=== PATIENT | male | born 1960 | race Caucasian/White ===

== ENCOUNTER 2022-02-16 16:33 | Outpatient (CLI) | payer BC, SELFPAY ==
--- OUTSIDE RECORDS SUMMARY | 2022-02-16 09:48 | XMS_ITS | Encounter Summary ---
:1960 Author Organization [facility] Address [address] [place] [id number] Care Team Providers Name Role Phone No Ref-Primary, Physician Primary Care Provider Encounter Details Date Type Department Care Team Description 06/19/2019 Travel Social History Tobacco Use Types Packs/Day Years Used Date Never Smoker Smokeless Tobacco: Never Used Alcohol Use Standard Drinks/Week Comments No 0 (1 standard drink = 0.6 oz pure alcoho l) Sex Assigned at Date Recorded Not on file documented as of this encounter Plan of Treatment Not on filedocumented as of this encounter Visit Diagnoses Not on filedocumented in this encounter Care Teams Ibm Bpm Architect Relationship Specialty Start Date End Date No Ref-Primary, Physician PCP - General 08/28/17 documented as of this encounter
--- OUTSIDE RECORDS SUMMARY | 2022-02-16 09:48 | XMS_ITS | Clinical Summary ---
:1960 Author Organization [facility] Address [address] [place] [address] Care Team Providers Name Role Phone No Ref-Primary, Physician Primary Care Provider Allergies No known active allergies Medications Medication Sig Dispensed Refills Start Date End Date Status Multiple Take 2 tablets by 0 Ac tive Vitamins-Minerals mouth 2 times (PRESERVISION AREDS 2 daily PO) atorvastatin (LIPITOR) Take 10 mg by 0 Active 10 MG tablet mouth daily fluticasone (FLONASE) [place] 1 spray into 0 Active 50 MCG/ACT nasal spray both nostrils daily LANsoprazole Take 30 mg by 0 Act yoseph (PREVACID) [address] mouth daily capsule triamcinolone Apply topically 2 0 Active (KENALOG) 0.1 % times daily external cream Active Problems Problem Noted Date Non-intractable vomiting with nausea, unspecified vomi ting type 12/02/2017 SBO (small bowel obstruction) 11/30/2017 Depression 08/29/2017 Knee pain 09/15/2012 Chondromalacia 09/15/2012 Social History Tobacco Use Types Packs/Day Years Used Date Never Smoker Smokeless Tobacco: Never Used Tobacco Cessation: Counseling Given: Yes Alcohol Use Standard Drinks/Week Comments No 0 (1 standard drink = 0.6 oz pure alcoho l) Sex Assigned at Date Recorded Not on file Last Filed Vital Signs Vital Sign Reading Time Taken Comments Blood Pressure 130/88 06/19/2019 11:34 AM COMMERCIAL COLLECTOR Pulse 41 06/19/2019 11:34 AM COMMERCIAL COLLECTOR Temperature 36.2 ??C (97.2 ??F) 06/02/2019 3:09 PM COMMERCIAL COLLECTOR Respiratory Rate 18 06/19/2019 11:34 AM COMMERCIAL COLLECTOR Oxygen Saturation 93% 06/19/2019 11:34 AM COMMERCIAL COLLECTOR Inhaled Oxygen Concentration - - Weight 107 kg (236 lb) 06/19/2019 11:34 AM COMMERCIAL COLLECTOR Height 182.9 cm (6') 06/19/2019 11:34 AM COMMERCIAL COLLECTOR Body Mass Index 32.01 06/19/2019 11:34 AM COMMERCIAL COLLECTOR Plan of Treatment Health Maintenance Due Date Last Done Comments ADVANCE CARE PLANNING 1960 ANNUAL REVIEW OF HM ORDERS 1960 CT COLONOGRAPHY 1960 FIT-DNA (Cologuard) 1960 FIT 1960 FLEX SIG 1960 PREVENTIVE CARE VISIT 1960 COVID-19 Vaccine (#1) 05/08/1961 HIV SCREENING 11/07/1975 HEPATITIS C SCREENING 1978 LIPID 11/07/1995 ZOSTER IMMUNIZATION (1 of 2010 2) COLONOSCOPY 07/11/2017 07/11/2007 COLORECTAL CANCER SCREENING 07/11/2017 PHQ-2 (once per calendar 05/30/2021 year) INFLUENZA VACCINE (#1) 2022 06/24/2017, 04/14/2015, 03/16/2002, Additional history exists DTAP/TDAP/TD IMMUNIZATION 07/19/2024 07/19/2014, 06/29/2004 , (2 - Td or Tdap) 04/09/1997 HEPATITIS B IMMUNIZATION Aged Out No long er eligible based on patient 's age to complete this topic IPV IMMUNIZATION Aged Out No longer eligi ble based on patient 's age to complete this topic MENINGITIS IMMUNIZATION Aged Out No longe r eligible based on patient 's age to complete this topic Pneumococcal Vaccine: Aged Out No longer eligible Pediatrics (0 to 5 Years) based on patient's age and At-Risk Patients (6 to to co mplete this topic 64 Years) Insurance Payer Benefit Plan / Subscriber ID Effective Dates Phone Addre ss Type Group [facility] [id number] 2013-Present [phone] [address] [address] PPO EMPLOYEE PROGRAM [place] [employer] [id number] [facility] 1960 [id number] (Home) [place] [address] Advance Directives For more information, please contact: [phone] Latest Code Status on File Code Status Date Activated Date Inactivated Comments Full Code 06/02/2019 2:05 AM 06/02/2019 7:45 PM Code status determined by: Discussion with patient/legal dec ision maker Full Code 12/02/2017 12:24 PM 06/01/2019 8:27 PM Full Code 11/30/2017 9:08 AM 12/02/2017 12:24 PM Full Code 08/29/2017 1:31 AM 08/30/2017 4:20 PM Care Teams Dry Kiln Burner Relationship Specialty Start Date End Date No Ref-Primary, Physician PCP - General 08/28/17
--- OUTSIDE RECORDS SUMMARY | 2022-02-16 09:48 | XMS_ITS | Encounter Summary ---
:1960 Author Organization [facility] Address [address] [place] [address] Care Team Providers Name Role Phone No Ref-Primary, Physician Primary Care Provider [phone] Encounter Details Date Type Department Care Team Description 06/02/2019 Travel Social History Tobacco Use Types Packs/Day [...] on filedocumented in this encounter Care Teams Rounding And Backing Machine Operator Relationship Specialty Start Date End Date No Ref-Primary, Physician PCP - General 08/28/17 documented as of this encounter
--- OUTSIDE RECORDS SUMMARY | 2022-02-16 09:48 | XMS_ITS | Encounter Summary ---
:1960 Author Organization [facility] Address [address] [place] [address] Care Team Providers Name Role Phone No Ref-Primary, Physician Primary Care Provider Encounter Details Date Type Department Care Team Description 06/01/2019 Travel Social History Tobacco Use Types Packs/Day [...] on filedocumented in this encounter Care Teams Cook Helper Preserves Relationship Specialty Start Date End Date No Ref-Primary, Physician PCP - General 08/28/17 documented as of this encounter
--- OUTSIDE RECORDS SUMMARY | 2022-02-16 09:48 | XMS_ITS | Encounter Summary ---
:1960 Author Organization [facility] Address [address] [place] [address]. [place] [address] Care Team Providers Name Role Phone No Ref-Primary, Physician Primary Care Provider Reason for Referral Diagnostic Imaging CT Scan - Closed Specialty Diagnoses / Procedures Referred By Contact Refer red To Contact Diagnoses Small bowel obstruction (H) Kristi Warner MD Procedures CT Enterography [facility] [address] [place] [address] Referral ID Status Reason Start Date Expiration Date Visits Requ ested Visits Authorized [id number] Closed 12/02/2017 12/02/2018 1 1 Reason for Visit Diagnostic Imaging CT Scan - Closed Specialty Diagnoses / Procedures Referred By Contact Refer red To Contact Diagnoses Small bowel obstruction (H) Kristi Warner MD Procedures CT Enterography [facility] [address] [place] [address] Referral ID Status Reason Start Date Expiration Date Visits Requ ested Visits Authorized [id number] Closed 12/02/2017 12/02/2018 1 1 Encounter Details Date Type Department Care Team Description 01/10/2018 Hospital Encounter [facility] Kristi Warner Small bowel [facility] MD [place] obstruction [id number] [facility] [address] [place] [address] Social History Tobacco Use Types Packs/Day Years Used Date Never Smoker Smokeless Tobacco: Never Used Alcohol Use Standard Drinks/Week Comments No 0 (1 standard drink = 0.6 oz pure alcoho l) Sex Assigned at Date Recorded Not on file documented as of this encounter Medications at Time of Discharge Medication Sig Dispensed Refills Start Date End Date BUPROPION HCL ER, XL, PO Take 150 mg by mouth 0 06/02/2019 daily IBUPROFEN PO Take by mouth as 0 2019 needed for moderate pain multivitamin (OCUVITE) Take 1 tablet by 0 06/02/2019 TABS tablet mouth 2 times daily documented as of this encounter Progress Notes Kristi Warner MD - 01/10/2018 11:59 PM CDT Please inform the patient of this normal result. No abnormalities are noted and no follow up needed. Pushpa Wynn RN - 01/10/2018 11:59 PM CDT Patient advised of results. Pushpa Boggs RN documented in this encounter Plan of Treatment Not on filedocumented as of this encounter Procedures Procedure Name Priority Date/Time Associated Diagnosis Comme nts CT ENTEROGRAPHY WITH Routine 01/10/2018 9:14 AM Small bowel R esults for this CONTRAST CDT obstruction procedure are i n the results section. documented in this encounter Results CT Enterography (01/10/2018 9:14 AM CDT) Anatomical Region Laterality Modality Abdomen/Pelvis, SUBRAD CT BODY, UMP CT ABDOMEN PELVIS, Computed Tomography RAD CT Specimen (Source) Anatomical Location Collection Method / Collectio n Time Received Time / Laterality Volume Impressions 01/10/2018 11:22 AM CDT IMPRESSION: 1. Small amount of fluid in the small devyn wel and right colon which in the correct clinical setting could refle ct gastroenteritis. No evidence of bowel obstruction. Possible mild constipation. No diverticulitis. Appendix is normal. 2. Probable fatty liver infiltration wit h 2 low-attenuation left hepatic lobe lesions potentially tiny cy sts or hemangiomas each measuring less than 1 cm. 3. Simple cyst right kidney. No further follow-up required. No hydronephrosis or enhancing renal lesion jose CATES MD Narrative 01/10/2018 11:[address] ENTEROGRAPHY WITH CONTRAST 01/10/2018 9:14 AM HISTORY: Small bowel obstruction. TECHNIQUE: Axial images from the lung ba ses to the symphysis are performed with additional coronal reform atted images. 100 mL of Isovue 370 are given intravenously. Radiation d ose for this scan was reduced using automated exposure control, adjust ment of the mA and/or kV according to patient size, or iterative reconstruction technique. FINDINGS: The lung bases are clear. Abdomen: There is probable fatty liver i nfiltration with a tiny cyst or hemangioma anterior left hepatic lobe measuring less than 1 cm. Possible similar lesion in the medial se gment left hepatic lobe also on image 22. The spleen, gallbladder, pa ncreas, adrenal glands and kidneys are unremarkable. Small cyst ant erolateral right kidney on image 47 measures less than 1 cm most li ervin a simple cyst. No hydronephrosis or obvious renal calculi. No enlarged abdominal lymph nodes. Aorta demonstrates scattered calc ified plaque without evidence of aneurysm. The bowel is normal in caliber without o bstruction. No evidence of diverticulitis. Appendix is normal. Mode rate amount of fecal debris is noted in the left colon and sigmoid colo n possibly indicating constipation. No significant gastric or small bowel distention. Pelvis: The bladder, prostate and rectum are unremarkable. No enlarged pelvic or inguinal lymph nodes. Bone win luis felipe examination is within normal limits. Procedure Note Erick Cates MD - 01/10/2018Form atting of this note might be different from the original. CT ENTEROGRAPHY WITH CONTRAST 01/10/2018 9:14 AM HISTORY: Small bowel obstruction. TECHNIQUE: Axial images from the lung ba ses to the symphysis are performed with additional coronal reform atted images. 100 mL of Isovue 370 are given intravenously. Radiation d ose for this scan was reduced using automated exposure control, adjust ment of the mA and/or kV according to patient size, or iterative reconstruction technique. FINDINGS: The lung bases are clear. Abdomen: There is probable fatty liver i nfiltration with a tiny cyst or hemangioma anterior left hepatic lobe measuring less than 1 cm. Possible similar lesion in the medial se gment left hepatic lobe also on image 22. The spleen, gallbladder, pa ncreas, adrenal glands and kidneys are unremarkable. Small cyst ant erolateral right kidney on image 47 measures less than 1 cm most li ervin a simple cyst. No hydronephrosis or obvious renal calculi. No enlarged abdominal lymph nodes. Aorta demonstrates scattered calc ified plaque without evidence of aneurysm. The bowel is normal in caliber without o bstruction. No evidence of diverticulitis. Appendix is normal. Mode rate amount of fecal debris is noted in the left colon and sigmoid colo n possibly indicating constipation. No significant gastric or small bowel distention. Pelvis: The bladder, prostate and rectum are unremarkable. No enlarged pelvic or inguinal lymph nodes. Bone win luis felipe examination is within normal limits. IMPRESSION: 1. Small amount of fluid in the small devyn wel and right colon which in the correct clinical setting could refle ct gastroenteritis. No evidence of bowel obstruction. Possible mild constipation. No diverticulitis. Appendix is normal. 2. Probable fatty liver infiltration wit h 2 low-attenuation left hepatic lobe lesions potentially tiny cy sts or hemangiomas each measuring less than 1 cm. 3. Simple cyst right kidney. No further follow-up required. No hydronephrosis or enhancing renal lesion jose CATES MD Kristi Warner MD IMG CT ORDERABLES documented in this encounter Visit Diagnoses Diagnosis Small bowel obstruction (H) Unspecified intestinal obstruction documented in this encounter Administered Medications Inactive Administered Medications - up to 3 most recent administrations Medication Order MAR Action Action Date Dose Rate Site 0.9% sodium chloride BOLUS New Bag 01/10/2018 8:56 AM CDT 55 mLs Intravenous, 100 mL, ONCE, On Tue01/10/18 at 0900, For 1 dose iopamidol (ISOVUE-370) solution 500 mL Given 01/10/2018 8:56 AM CDT 100 mLs 500 mL, Intravenous, ONCE, On Tue01/10/18 at 0900, For 1 dose documented in this encounter Care Teams Agricultural Produce Sorter Relationship Specialty Start Date End Date No Ref-Primary, Physician PCP - General 08/28/17 documented as of this encounter
--- OUTSIDE RECORDS SUMMARY | 2022-02-16 09:48 | XMS_ITS | Encounter Summary ---
:1960 Author Organization [facility] Address [address] [place] [address]. [place] [address] Care Team Providers Name Role Phone No Ref-Primary, Physician Primary Care Provider [phone] Reason for Referral Diagnostic Imaging CT Scan - Closed Specialty Diagnoses / Procedures Referred By Contact Refer red To Contact Diagnoses Small bowel obstruction (H) Kristi Warner MD Procedures [facility] [address] [facility] [address] [place] [address] Referral ID Status Reason Start Date Expiration Date Visits Requ ested Visits Authorized [id number] Closed 12/02/2017 12/02/2018 1 1 Encounter Details Date Type Department Care Team Description 12/02/2017 Orders Only [facility] Kristi Warner Small bowel [facility] MD [place] obstruction ( Primary [facility] Dx) [address] [facility] [address] [place] [address] Social History Tobacco Use Types Packs/Day Years Used Date Never Smoker Smokeless Tobacco: Never Used Alcohol Use Standard Drinks/Week Comments No 0 (1 standard drink = 0.6 oz pure alcoho l) Sex Assigned at Date Recorded Not on file documented as of this encounter Plan of Treatment Not on filedocumented as of this encounter Results CT Enterography (01/10/2018 9:14 [...] required. No hydronephrosis or enhancing renal lesion sHank CATES MD Narrative 01/10/2018 11:22 AM CDT [...] Visit Diagnoses Diagnosis Small bowel obstruction (H) - Primary Unspecified intestinal obstruction Small bowel obstruction (H) Unspecified intestinal obstruction documented in this encounter Care Teams Straight Edger Relationship Specialty Start Date End Date No Ref-Primary, Physician PCP - General 08/28/17 documented as of this encounter
--- OUTSIDE RECORDS SUMMARY | 2022-02-16 09:48 | XMS_ITS | Encounter Summary ---
:1960 Author Organization [facility] Address [address] [place] [id number] Care Team Providers Name Role Phone No Ref-Primary, Physician Primary Care Provider [phone] Reason for Visit Reason Comments Abdominal Pain Auth/Cert Specialty Diagnoses / Procedures Referred By Contact Refer red To Contact Diagnoses Small bowel obstruction (H) SBO (small bowel obstruction) (H) [facility] [address] [place], [place] [address] Phone: Fax: Referral ID Status Reason Start Date Expiration Date Visits Requ ested Visits Authorized [id number] 1 1 Encounter Details Date Type Department Care Team Description 06/01/2019 - [facility] jhon Tejeda DO [facility] [address] [place] [id number] Small bowel 06/02/2019 Encounter [facility] Kwadwo Abla MD [address] [place], [place] [id number] obstruction (H) Surgical [address] [place] [address] Social History Tobacco Use Types Packs/Day Years Used Date Never Smoker Smokeless Tobacco: Never Used Alcohol Use Standard Drinks/Week Comments No 0 (1 standard drink = 0.6 oz pure alcoho l) Sex Assigned at Date Recorded Not on file documented as of this encounter Last Filed Vital Signs Vital Sign Reading Time Taken Comments Blood Pressure 112/62 06/02/2019 3:09 PM [employer] Pulse 44 06/02/2019 7:38 AM EN[employer]MENTAL [employer] Temperature 36.2 ??C (97.2 ??F) 06/02/2019 3:09 PM EN[employer]ONMENTAL [employer]ER Respiratory Rate 20 06/02/2019 3:09 PM EN[employer]IRONMENTAL WE[employer]ER Oxygen Saturation 97% 06/02/2019 3:09 PM ENVIRONMENTAL WE[employer]WLER Inhaled Oxygen Concentration - - Weight 107.2 kg (236 lb 4.8 oz) 06/02/2019 1:21 AM ENVIRONMENTAL WE[employer] C[employer]WLER Height 182.9 cm (6') 06/02/2019 1:21 AM ENVIRONMENTAL WEB C[employer]WLER Body Mass Index 32.05 06/02/2019 1:21 AM ENVIRONMENTAL WEB CRAWLER documented in this encounter Discharge Summaries James Valadez MD - 06/02/2019 5:30 PM CST [facility] Discharge Summary Hospitalist Date of Admission: 06/01/2019 Date of Discharge: 06/02/2019 5:30 PM Discharging Provider: James Valadez MD Date of Service (when I saw the patient): 06/02/19 Discharge Diagnoses Small bowel obstruction. Treated conservatively and resolved. Possibly related to mobile cecum. Follow-up in general surgery clinic. Dyslipidemia GERD History of Present Illness Sunday Myers is an 58 year old male who presented with progressively worsening abdominal pain and nausea. CT scan suggested distal small bowel obstruction. Hospital Course Patient was admitted to internal medicine service and general surgery team was consulted. Overall patient appeared stable in the emergency room. Initial exam showed nonsurgical abdomen. Patient was admitted and treated conservatively. NG tube placement was deferred. Patient has quickly improved. His nausea improved. He started having bowel motions. Abdominal pain rapidly resolved. Patient was seen by Dr. Hansen from general surgery. She reviewed the CT images. Per her recommendations, patient may have a mobile cecum. On CT scan, cecum and appendix appear to be in the right upper quadrant. This anatomical abnormality may be responsible for his small bowel obstruction. Patient had a small bowel obstruction in 2018. No history of surgery. According to the patient, he had a colonoscopy about a year ago in [place]. He was told that it was unremarkable and possibly polyps were removed. He was recommended to follow-up with Dr. Hansen in general surgery clinic. Patient's diet was advanced which he tolerated well. Patient is discharged home with follow-up plan with general surgery. I personally evaluated and examined the patient on the day of discharge. James Valadez MD Pending Results These results will be followed up by PCP Unresulted Labs Ordered in the Past 30 Days of this Admission No orders found from 05/02/2019 to 06/02/2019. Primary Care Physician Physician No Ref-Primary Discharge Disposition Discharged to home Condition at discharge: Stable Consultations This Hospital Stay SURGERY GENERAL IP CONSULT Time Spent on this Encounter Discharge time: greater than 30 minutes. Discharge Orders Reason for your hospital stay Bowel obstruction Follow-up and recommended labs and tests Follow up with primary care provider, Physician No Ref-Primary, within 7 days for hospital follow- up. Follow up with Dr Hansen in surgery office. Activity Your activity upon discharge: activity as tolerated Diet Follow this diet upon discharge: low fiber diet Discharge Medications Discharge Medication List as of 06/02/2019 4:42 PM CONTINUE these medications which have NOT CHANGED Details atorvastatin (LIPITOR) 10 MG tablet Take 10 mg by mouth daily, Historical fluticasone (FLONASE) 50 MCG/ACT nasal spray [place] 1 spray into both nostrils daily, Historical LANsoprazole (PREVACID) [address] capsule Take 30 mg by mouth daily, Historical Multiple Vitamins-Minerals (PRESERVISION AREDS 2 PO) Take 2 tablets by mouth 2 times daily, Historical triamcinolone (KENALOG) 0.1 % external cream Apply topically 2 times dailyHistorical Allergies No Known Allergies Data Most Recent 3 CBC's: Recent Labs Lab Test 06/02/19 0833 06/01/19204112/01/17 0642 WBC 7.6 11.4* 8.6 HGB 14.3 15.0 14.2 MCV 89 89 90 PLT 203 245 195 Most Recent 3 BMP's: Recent Labs Lab Test 06/02/19 0833 06/01/19204112/02/17 0844 NA 141 141 140 POTASSIUM 3.9 3.8 4.0 CHLORIDE 109 108 105 CO2 28 26 27 BUN 19 22 12 CR 0.93 1.00 0.97 ANIONGAP 4 7 8 NYDIA 8.5 9.3 8.9 GLC 125* 117* 161* Most Recent 2 LFT's: Recent Labs Lab Test 06/01/19204111/30/17 0535 AST 19 24 ALT 22 40 ALKPHOS 74 109 BILITOTAL 0.5 1.1 Most Recent INR's and Anticoagulation Dosing History: Anticoagulation Dose History Recent Dosing and Labs Latest Ref Rng & Units 11/30/2017 INR 0.86 - 1.14 0.91 Most Recent 3 Troponin's: Recent Labs Lab Test 11/30/17 0535 08/28/17 1732 TROPI <0.015 <0.015 Most Recent Cholesterol Panel:No lab results found. Most Recent 6 Bacteria Isolates From Any Culture (See EPIC Reports for Culture Details):No lab results found. Most Recent TSH, T4 and A1c Labs: Recent Labs Lab Test 12/02/17 0844 08/28/17 1732 TSH -- 1.44 A1C 5.8* -- RONMENTAL WEB CRAWLER documented in this encounter Discharge Instructions AttachmentsThe following attachments cannot be sent through Care Everywhere. Bowel Obstruction, Small (Mexican)documented in this encounter Medications at Time of Discharge Medication Sig Dispensed Refills Start Date End Date atorvastatin (LIPITOR) 10 Take 10 mg by mouth 0 MG tablet daily fluticasone (FLONASE) 50 [place] 1 spray into 0 MCG/ACT nasal spray both nostrils daily LANsoprazole (PREVACID) 30 Take 30 mg by mouth [address] capsule daily Multiple Vitamins-Minerals Take 2 tablets by 0 (PRESERVISION AREDS 2 PO) mouth 2 times daily triamcinolone (KENALOG) Apply topically 2 0 0.1 % external cream times daily documented as of this encounter H&P Notes Kwadwo Alba MD - 06/01/2019 11:04 PM CST Images from the original note were not included. [facility] Hospitalist Admission Note June 01, 2019 Name: Sunday Myers Date of : 1960 Age: [age] year old Date of admission: 06/01/2019 Primary care provider: No Ref-Primary, Physician Summary: Patient is a pleasant 58-year-old male with a history of small bowel obstruction back in 2018 who presents here with progressive abdominal pain and nausea. Other past medical history includes generalized anxiety/depression. Patient presented here with worsening abdominal pain and distention that started today. Symptoms are similar back to his previous small bowel obstruction in 2018 when he was hospitalized here. He has no previous abdominal surgeries. General surgery was consulted during that admission and deferred on surgical intervention as patient was clinically improving with conservative management. At that time he did have an NG tube decompression with bowel rest. Since presentation, patient reports that his abdomen is less distended. No longer nauseated. CT of the abdomen pelvis did confirm a distal small bowel obstruction. During my interview, patient reports that pain is controlled andhe denies any active nausea. Thus, an NG tube was deferred at this time. I was asked to admit him for further inpatient cares and surgical consultation. Problem list/Plan: 1. Small bowel obstruction: Appears nontoxic and abdomen is nonsurgical at this time. No notable recent flatus. Will offer conservative cares with bowel rest, maintenance IV fluids, pain control, and antiemetics. Will consult surgery formally. Patient does not have a previous history of abdominal surgeries. Other differential diagnosis includes IBD versus internal hernia. Consider NG tube to decompression if nausea and pain becomes an issue. 2. History of depression/anxiety: Holding patient's chronic Wellbutrin while surgery consultation n.p.o. -Additional workup plan which will include surgery consultation lab work and imaging data independently reviewed by myself Prophylaxis; PCD/Ambulation. Code status: Full code Discharge: Home when able Chief Complaint: Abdominal pain/nausea HPI Patient is a pleasant 58-year-old male with a history of small bowel obstruction back in 2018 who presents here with progressive abdominal pain and nausea. Other past medical history includes generalized anxiety/depression. Patient presented here with worsening abdominal pain and distention that started today. Symptoms are similar back to his previous small bowel obstruction in 2018 when he was hospitalized here. He has no previous abdominal surgeries. General surgery was consulted during that admission and deferred on surgical intervention as patient was clinically improving with conservative management. At that time he did have an NG tube decompression with bowel rest. Since presentation, patient reports that his abdomen is less distended. No longer nauseated. CT of the abdomen pelvis did confirm a distal small bowel obstruction. During my interview, patient reports that pain is controlled andhe denies any active nausea. Thus, an NG tube was deferred at this time. I was asked to admit him for further inpatient cares and surgical consultation. I did discuss the case in detail with the ED physician. Past Medical History: Patient is a pleasant 58-year-old male with a history of small bowel obstruction back in 2018 who presents here with progressive abdominal pain and nausea. Other past medical history includes generalized anxiety/depression. Patient presented here with worsening abdominal pain and distention that started today. Symptoms are similar back to his previous small bowel obstruction in 2018 when he was hospitalized here. He has no previous abdominal surgeries. General surgery was consulted during that admission and deferred on surgical intervention as patient was clinically improving with conservative management. At that time he did have an NG tube decompression with bowel rest. Since presentation, patient reports that his abdomen is less distended. No longer nauseated. CT of the abdomen pelvis did confirm a distal small bowel obstruction. During my interview, patient reports that pain is controlled andhe denies any active nausea. Thus, an NG tube was deferred at this time. I was asked to admit him for further inpatient cares and surgical consultation. Past Surgical History: Past Surgical History: Procedure Laterality Date ??? KNEE SURGERY ??? TONSILLECTOMY, ADENOIDECTOMY, COMBINED Social History: Social History Tobacco Use ??? Smoking status: Never Smoker ??? Smokeless tobacco: Never Used Substance Use Topics ??? Alcohol use: No ??? Drug use: No Family History: Family history reviewed. NO pertinent family history Allergies: No Known Allergies Medications: Wellbutrin XL 150 mg p.o. daily Multivitamin Review of Systems: A Comprehensive greater than 10 system review of systems was carried out. Pertinent positives and negatives are noted above. Otherwise negative for contributory information. Physical Exam: Blood pressure 138/87, temperature 97 ??F (36.1 ??C), temperature source Temporal, resp. rate 18, weight 106 kg (233 lb 11 oz), SpO2 99 %. Gen: Pleasant in no acute distress. HEENT: NCAT. EOMI. PERRL. Neck: Normal inspection. No bruit, JVD or thyromegaly. Lungs: Normal respiratory effort. Clear to auscultation bilaterally with no crackles or wheezes. Card: N s1s2. RRR. No M/R/G. Peripheral pulses present and symmetric. Abd: Soft NT ND. Hypoactive bowel sounds. Skin: No rash. Warm to the touch Extr: No edema. CMS intact Psychiatric: Patient alert oriented ??3. Normal affect Neurologic: Cranial nerves II-XII are intact. Sensation normal. Motor strength 5/5 Data: Recent Labs Lab 06/01/192041 WBC 11.4* HGB 15.0 HCT 46.9 MCV 89 PLT 245 Recent Labs Lab 06/01/192041 NA 141 POTASSIUM 3.8 CHLORIDE 108 CO2 26 ANIONGAP 7 GLC 117* BUN 22 CR 1.00 GFRESTIMATED 82 GFRESTBLACK >90 NYDIA 9.3 PROTTOTAL 7.5 ALBUMIN 4.4 BILITOTAL 0.5 ALKPHOS 74 AST 19 ALT 22 No results for input(s): COLOR, APPEARANCE, URINEGLC, URINEBILI, URINEKETONE, SG, UBLD, URINEPH, PROTEIN, UROBILINOGEN, NITRITE, LEUKEST, RBCU, WBCU in the last 168 hours. Imaging: Recent Results (from the past 24 hour(s)) Abd/pelvis CT, IV contrast only TRAUMA / AAA Narrative EXAM: CT ABDOMEN PELVIS W CONTRAST LOCATION: [facility] DATE/TIME: 06/01/2019 9:48 PM INDICATION: Abdominal pain. COMPARISON: 01/10/2018. TECHNIQUE: CT scan of the abdomen and pelvis was performed following injection of IV contrast. Multiplanar reformats were obtained. Dose reduction techniques were used. CONTRAST: 100 mL Isovue-370. FINDINGS: LOWER CHEST: Mild dependent atelectasis at the lung bases. HEPATOBILIARY: The gallbladder is contracted. No calcified gallstones. A few small liver lesions arelikely cysts. PANCREAS: Normal. SPLEEN: Normal. ADRENAL GLANDS: Normal. KIDNEYS/BLADDER: Small cortical cyst at the lower pole of the right kidney. No hydronephrosis. BOWEL: There are multiple dilated mid small bowel loops. Mild edema in the adjacent mesentery. Specific point of transition is not identified but appears to be in the right lower quadrant. The colon iswithin normal limits. Appendix is within normal limits. LYMPH NODES: Normal. VASCULATURE: Unremarkable. PELVIC ORGANS: Prostate gland is enlarged. OTHER: None. MUSCULOSKELETAL: Degenerative disease in the spine. Impression IMPRESSION: 1. Distal small bowel obstruction. Kwadwo Alba MD Pager [phone] RONMENTAL WEB CRAWLER documented in this encounter Consult Notes Tiffany Hansen MD - 06/02/2019 10:12 AM CSTAssociated Order(s): SURGERY GENERAL IP CONSULT General Surgery Consultation Sunday Myers Age: [age] year old Date of : 1960 Date of Admission: 06/01/2019 Reason for consult: Small bowel obstruction Requesting physician: Dr Burkett Her Assessment and Plan: Assessment: Sunday Myers is a 58 year old male without prior surgical history, with previous SBO in 2018 with a recurrent small bowel obstruction. Based on the appearance of the CT, I believe mobile cecum is most likely - cecum and appendix appearto be in right upper quadrant. There is no small bowel wall thickening to indicate inflammatory process like Crohn's. Prior CT enterography in 2018 was normal. Adhesions are possible. No evidence of mass/tumor. Luckily his symptoms have improved today and he is pain-free Plan: OK to start full liquids and advance as tolerated If tolerates diet, okay for discharge later today. I discussed with patient confirming when his last colonoscopy was done. He can come see me in the office to discuss possible elective surgery to evaluate the cecum or for other problems causing recurrent bowel obstruction. Chief Complaint: Abdominal pain History is obtained from the patient History of Present Illness: Sunday Myers is a 58 year old male who presents with abdominal pain diffusely for thepast 1 day. The pain is intermittent and cramping. Started around 5 PM last night. States it comes in waves. Abdomen was bloated. He did not have any vomiting. Presented to the emergency department andwas admitted. By the Time he was admitted his symptoms had improved. States small amount of flatus but no bowel movements. At baseline BMs are daily and soft. He has had a colonoscopy, last one in our system was in 2007 however he believes he had one more recently at an outside facility.. He does havea history of bowel obstructions in the past. He presented with similar but more severe symptoms in November 2017. He said at that time he was having severe pain as well as nausea and vomiting. He did receive an NG tube for decompression and his symptoms improved and he was able to go home after 2 nights in the hospital. He underwent work-up with CT enterography in December 2017 which really did not see anybowel abnormality. In between that episode and this episode he reports he really has not had that similar cramping pain but occasionally reports he has some abdominal bloating that he cannot correlate to any specific food. He did change his diet about 3 weeks ago to a high-protein and vegetable diet with no carbs. His previous episode he states he had changed his diet at that time as well to eating alot of dried fruit and nuts. Past Medical History: Depression Past Surgical History: Past Surgical History: Procedure Laterality Date ??? KNEE SURGERY ??? TONSILLECTOMY, ADENOIDECTOMY, COMBINED No abdominal surgery Social History: Social History Tobacco Use ??? Smoking status: Never Smoker ??? Smokeless tobacco: Never Used Substance Use Topics ??? Alcohol use: No Family History: No family history on file. No family history of inflammatory bowel disease or colon cancer. Allergies: No Known Allergies Medications: No current facility-administered medications on file prior to encounter. atorvastatin (LIPITOR) 10 MG tablet, Take 10 mg by mouth daily fluticasone (FLONASE) 50 MCG/ACT nasal spray, [place] 1 spray into both nostrils daily LANsoprazole (PREVACID) [address] capsule, Take 30 mg by mouth daily Multiple Vitamins-Minerals (PRESERVISION AREDS 2 PO), Take 2 tablets by mouth 2 times daily triamcinolone (KENALOG) 0.1 % external cream, Apply topically 2 times daily ??? sodium chloride (PF) 3 mL Intracatheter Q8H Review of Systems: The 10 point review of systems is negative other than noted in the HPI. Physical Exam: BP 121/74 Pulse (!) 44 Temp 95.8 ??F (35.4 ??C) (Oral) Resp 18 Ht 1.829 m (6') Wt 107.2 kg(236 lb 4.8 oz) SpO2 96% BMI 32.05 kg/m?? General - Well developed, well nourished male in no apparent distress Eyes: no scleral icterus or redness Lungs: Clear to auscultation bilaterally Heart: regular rate and rhythm, no murmurs Abdomen: soft, flat, non-distended with no tenderness noted diffusely. No rebound or guarding. no masses palpated. MSK: Extremities warm without edema Neurologic: nonfocal Psychiatric: Mood and affect appropriate Skin: Without lesions, rashes, or jaundice Data: Labs reviewed all normal Imaging: All imaging studies reviewed by me (with radiologist) and my interpretation of the CT is: moderatelydilated small bowel with gradual transition point in the distal ileum. The cecum and appendix appearto be in the right upper quadrant without significant swirling of the mesentery. No significant surrounding stranding/inflammation. Nodes within normal limits Tiffany Hansen MD 06/02/2019 10:12 AM Time spent with the patient, reviewing the EMR, reviewing laboratory and imaging studies, more than 50% of which was counseling and coordinating care: 30 minutes. RONMENTAL WEB CRAWLER documented in this encounter ED Notes Yasmeen Davidson - 06/01/2019 10:42 PM CST [facility] ED Nurse Handoff Report Sunday Myers is a 58 year old male ED Chief complaint: Abdominal Pain . ED Diagnosis: Final diagnoses: Small bowel obstruction (H) Allergies: No Known Allergies Code Status: Full Code Activity level - Baseline/Home: Independent. Activity Level - Current: Independent. Lift room needed: No. Bariatric: No Cath Lab Radiology Technician Needed: No Isolation: No. Infection: Not Applicable. Vital Signs: Vitals: 06/01/192029 BP: 138/87 Resp: 18 Temp: 97 ??F (36.1 ??C) TempSrc: Temporal SpO2: 99% Weight: 106 kg (233 lb 11 oz) Cardiac Rhythm: , Pain level: 0-10 Pain Scale: 6 Patient confused: No. Patient Falls Risk: No. Elimination Status: Has voided Patient Report - Initial Complaint: Abdominal pain. Focused Assessment: A&O x4, ABCs intact. Pt states he has diffuse abdominal cramping that is intermittent. Pt states he has hx of bowel obstruction. Pt is noted to have high pitched bowel sounds. Hypoactive in all quadrants. Tests Performed: lab, imaging. Abnormal Results: Labs Ordered and Resulted from Time of ED Arrival Up to the Time of Departure from the ED CBC WITH PLATELETS DIFFERENTIAL - Abnormal; Notable for the following components: Result Value WBC 11.4 (*) All other components within normal limits COMPREHENSIVE METABOLIC PANEL - Abnormal; Notable for the following components: Glucose 117 (*) All other components within normal limits LIPASE Abd/pelvis CT, IV contrast only TRAUMA / AAA Final Result IMPRESSION: 1. Distal small bowel obstruction. . Treatments provided: See MAR Family Comments: None OBS brochure/video discussed/provided to patient: N/A ED Medications: Medications HYDROmorphone (DILAUDID) injection 1 mg (1 mg Intravenous Given 06/01/192221) ondansetron (ZOFRAN) injection 4 mg (4 mg Intravenous Given 06/01/192221) sodium chloride 0.9 % bag 500mL for CT scan flush use (65 mLs Intravenous Given 06/01/192148) iopamidol (ISOVUE-370) solution 500 mL (100 mLs Intravenous Given 06/01/192148) Drips infusing: No For the majority of the shift, the patient's behavior Green. Interventions performed were None. Severe Sepsis OR Septic Shock Diagnosis Present: No ED Nurse Name/Phone Number: Erick Cano RN, 10:42 PM RECEIVING UNIT ED HANDOFF REVIEW Above ED Nurse Handoff Report was reviewed: Yes Reviewed by: Yasmeen Davidson RN on June 02, 2019 at 12:52 AM RONMENTAL WEB CRAWLER Aditya Wolf RN - 06/01/2019 8:29 PM CST Pt arrives with mid abd pain starting at 5 pm. Denies N/V/D, hx of small bowel obstruction. ABCs intact. Maritza Haywood DO - 06/01/2019 8:27 PM CST History Chief Complaint: Abdominal Pain HPI Sunday Myers is a 58 year old male with a history of small bowel obstruction, who presents for evaluation of intermittent diffuse abdominal pain for the past four hours. Patient states his currentsymptoms feel similar to his history of SBO. He describes his pain as a pulsing sensation that he rates at 5- 8/10. He does remark of a recent diet change to Keto a few weeks ago and since then, has hadloser stools and more constipation. Denies nausea, vomiting, diarrhea, fever, chest pain, or any other concerns. No history of abdominal surgeries. No history of kidney stones. No alcohol, tobacco, or drug use. Allergies: NKDA Medications: Bupropion Past Medical History: SBO Depression Chondromalacia Past Surgical History: Knee surgery T&A Cyst removal Family History: History reviewed. No pertinent family history. Social History: Smoking status: never Alcohol use: no Drug use: no PCP: Physician No Ref-Primary Marital Status: Review of Systems Constitutional: Negative for fever. Cardiovascular: Negative for chest pain. Gastrointestinal: Positive for abdominal pain and constipation. Negative for diarrhea, nausea and vomiting. All other systems reviewed and are negative. Physical Exam Patient Vitals for the past 24 hrs: BP Temp Temp src Heart Rate Resp SpO2 Weight 06/01/19 2030 138/87 97 ??F (36.1 ??C) Temporal 64 18 99 % 106 kg (233 lb 11 oz) Physical Exam Nursing note and vitals reviewed. Constitutional: Well nourished. Eyes: Conjunctiva normal. Pupils are equal, round, and reactive to light. ENT: Nose normal. Mucous membranes pink and moist. Neck: Normal range of motion. CVS: Normal rate, regular rhythm. Normal heart sounds. No murmur. Pulmonary: Lungs clear to auscultation bilaterally. No wheezes/rales/rhonchi. GI: Abdomen soft. Mild generalized tenderness. No rigidity or guarding. MSK: No calf tenderness or swelling. Neuro: Alert. Follows simple commands. Skin: Skin is warm and dry. No rash noted. Psychiatric: Normal affect. Emergency Department Course ECG (21:09:39): Rate 53 bpm. FL interval 154. QRS duration 108. QT/QTc 452/424. P-R-T axes 35 21 66. Sinus bradycardia. Cannot rule out anterior infarct, age undetermined. Abnormal ECG. Interpreted by Maritza Cheema DO. Imaging: Radiographic findings were communicated with the patient who voiced understanding of the findings. Abd/pelvis CT, IV contrast only TRAUMA/AAA 1. Distal small bowel obstruction. As read by Radiology. Laboratory: CMP: Glucose 117 (H), o/w WNL (Creatinine: 1.00) CBC: WBC 11.4 (H), HGB 15.0, PLT 245 Lipase: 198 Interventions: 2222: Zofran 4 mg IV 2222: Dilaudid 1 mg IV Emergency Department Course: 2053: Nursing notes and vitals reviewed. I performed an exam of the patient as documented above. IV inserted. Medicine administered as documented above. Blood drawn. This was sent to the lab for further testing, results above. The patient was sent for an abdomen pelvis xray while in the emergency department, findings above. 2234: I consulted with Dr. Alba of the hospitalist services. They are in agreement to accept the patient for admission. 0: I rechecked patient and updated him on the plan. Findings and plan explained to the Patient who consents to admission. Discussed the patient with , who will admit the patient to a medical bed for further monitoring, evaluation, and treatment. Impression & Plan Medical Decision Making: Sunday Myers is a 58 year old male who presents for evaluation of abdominal pain. There has been decreased stool. Clinically this is consistent with bowel obstruction, CT confirms this. Will admitto medicine for further cares and bowel rest. No indication at this point for emergency surgical consult. There are no signs of surgical emergencies or intraabdominal catastrophes such as volvulus, gutischemia, perforation, etc. Discussed NGT though patient declining at this time, requesting conservative management. All questions answered prior to admission. Diagnosis: ICD-10-CM 1. Small bowel obstruction (H) K56.609 Disposition: Admitted to Dr. Alba I, Marlene Haynes, am serving as a scribe at 8:54 PM on 06/01/2019 to document services personally performed by Maritza Cheema DO based on my observations and the provider's statements to me. Marlene Haynes 06/01/2019 [facility] EMERGENCY DEPARTMENT Maritza Cheema DO 06/01/19 2248 RONMENTAL WEB CRAWLER documented in this encounter Miscellaneous Notes Plan of Care - Germain Nguyen, RN - 06/02/2019 4:55 PM CST BP 112/62 (BP Location: Left arm) Pulse (!) 44 Temp 97.2 ??F (36.2 ??C) (Oral) Resp 20 Ht 1.829 m (6') Wt 107.2 kg (236 lb 4.8 oz) SpO2 97% BMI 32.05 kg/m?? -VSS -Bowel sounds active -No abdominal discomfort -Ate solid food around 2pm -Cleared for discharge. -AVS signed RONMENTAL WEB CRAWLER Plan of Care - Tali Cassidy RN - 06/02/2019 1:44 PM CST Patient is A/O, C/O minimal tenderness to abdomen occasionally. HR reg, pulses palpable, no edema, sensation intact. Jean-Paul and asymptomatic. RA, no SOB, lungs clear, afebrile. BS faint, no N/V, passinggas, diet advanced to Full Liquid and patient tolerated well. Adjusted to a regular diet. Patient will see if tolerates this diet and may discontinue later today. Voiding in BR independently and steady. IVF infusing. Ambulating halls. Surgery to see outpatient. VSS. Labs normal. RONMENTAL WEB CRAWLER Pharmacy-Admission Medication History - Susana Hdz - 06/02/2019 8:24 AM ENVIRONMENTAL WEB CRAWLER Admission medication history interview status for this patient is complete. See [facility] admission navigator for allergy information, prior to admission medications and immunization status. Medication history interview source(s):Patient Medication history resources (including written lists, pill bottles, clinic record): care everywhere Primary pharmacy:[facility] Changes made to [employer] medication list: Added: atorvastatin, flonase, lansoprazole, triamcinolone, areds Deleted: bupropion, ibuprofen, ocuvite Changed: nothing Actions taken by pharmacist (provider contacted, etc):None Additional medication history information: Patient reported taking a keto booster, but wasn't surewhat was in it - his is a pharmacist so he said he can tell us what is in it when she comes today. He reported that he takes ibuprofen from time to time, and this past week, took 4 tablets (800 mgtotal) once. Medication reconciliation/reorder completed by provider prior to medication history? Yes Do you take OTC medications (eg tylenol, ibuprofen, fish oil, eye/ear drops, etc)? Yes For patients on insulin therapy: No Prior to Admission medications Medication Sig Last Dose Taking? Auth Provider atorvastatin (LIPITOR) 10 MG tablet Take 10 mg by mouth daily 06/01/2019 at Unknown time Yes Unknown, Entered By History fluticasone (FLONASE) 50 MCG/ACT nasal spray [place] 1 spray into both nostrils daily 06/01/2019 at Unknown time Yes Unknown, Entered By History LANsoprazole (PREVACID) [address] capsule Take 30 mg by mouth daily 06/01/2019 at Unknown time Yes Unknown, Entered By History Multiple Vitamins-Minerals (PRESERVISION AREDS 2 PO) Take 2 tablets by mouth 2 times daily Past Weekat Unknown time Yes Unknown, Entered By History triamcinolone (KENALOG) 0.1 % external cream Apply topically 2 times daily 06/01/2019 at Unknown time Yes Unknown, Entered By History RONMENTAL WEB CRAWLER Plan of Care - Radha Marsh RN - 06/02/2019 6:46 AM CST Pt A&O x4, up ad day. VSS. Denies pain. NonTele. Admitted for NV and abd. Pain, found to have SBO. NPO awaiting surgery consult. Pt does not have NG tube at this time, plan for conservative management as long as pain and nausea do not increase. Discharge TBD. Will continue POC. RONMENTAL WEB CRAWLER documented in this encounter Plan of Treatment Not on filedocumented as of this encounter Procedures Procedure Name Priority Date/Time Associated Comments Diagnosis BASIC METABOLIC PANEL Routine 06/02/2019 8:33 AM Small bowel Results for this ENVIRONMENTAL WEB CRAWLER obstruction (H) procedure ar e in the results section. CBC WITH PLATELETS Routine 06/02/2019 8:33 AM Small bowel Res ults for this ENVIRONMENTAL WEB CRAWLER obstruction (H) procedure ar e in the results section. CT ABDOMEN PELVIS W STAT 06/01/2019 9:50 PM Re sults for this CONTRAST ENVIRONMENTAL WEB CRAWLER procedure are i n the results section. EKG 12-LEAD, TRACING STAT 06/01/2019 9:09 PM R esults for this ONLY ENVIRONMENTAL WEB CRAWLER procedure are i n the results section. CBC WITH PLATELETS & STAT 06/01/2019 8:42 PM R esults for this DIFFERENTIAL ENVIRONMENTAL WEB CRAWLER procedure are i n the results section. LIPASE STAT 06/01/2019 8:42 PM Results f or this ENVIRONMENTAL WEB CRAWLER procedure are i n the results section. COMPREHENSIVE STAT 06/01/2019 8:42 PM Results for this METABOLIC PANEL ENVIRONMENTAL WEB CRAWLER procedure ar e in the results section. documented in this encounter Results CBC with platelets (06/02/2019 8:33 AM ENVIRONMENTAL WEB CRAWLER) athologist Signature WBC 7.6 4.0 - 11.0 06/02/2019 [facility] 10e9/L 8:48 AM [facility] RBC Count 5.00 4.4 - 5.9 06/02/2019 [facility] 10e12/L 8:48 AM [facility] Hemoglobin 14.3 13.3 - 06/02/2019 [facility] 17.7 g/dL 8:48 AM [facility] Hematocrit 44.4 40.0 - 06/02/2019 [facility] 53.0 % 8:48 AM [facility] MCV 89 78 - 100 06/02/2019 [facility] fl 8:48 AM [facility] MCH 28.6 26.5 - 06/02/2019 [facility] 33.0 pg 8:48 AM [facility] MCHC 32.2 31.5 - 06/02/2019 [facility] 36.5 g/dL 8:48 AM [facility] RDW 12.4 10.0 - 06/02/2019 [facility] 15.0 % 8:48 AM [facility] Platelet Count 203 150 - 450 06/02/2019 [facility] 10e9/L 8:48 AM [facility] Specimen Anatomical Collection Method Collection Time Receive d Time (Source) Location / / Volume Laterality Blood specimen 06/02/2019 8:33 AM 020 8:34 (specimen) ENVIRONMENTAL WEB CRAWLER AM ENVIRONMENTAL WEB CRAWLER Kwadwo Alba MD LAB - BLOOD ORDERABLES Performing Organization Address City/State/ZIP Code Phon e Number [facility] [address] [address] [facility] [address] [address] [facility] [phone] (ABNORMAL) Basic metabolic panel (06/02/2019 8:33 AM ENVIRONMENTAL WEB CRAWLER) athologist Signature Sodium 141 133 - 144 06/02/2019 [facility] mmol/L 8:58 AM [facility] Potassium 3.9 3.4 - 5.3 06/02/2019 [place] mmol/L 8:58 AM [facility] Chloride 109 94 - 109 06/02/2019 [place] mmol/L 8:58 AM [facility] Carbon Dioxide 28 20 - 32 06/02/2019 [place] mmol/L 9:04 AM [facility] Anion Gap 4 3 - 14 06/02/2019 [place] mmol/L 9:04 AM [facility] Glucose 125 (H) 70 - 99 06/02/2019 [place] mg/dL 9:04 AM [facility] Urea Nitrogen 19 7 - 30 06/02/2019 [place] mg/dL 9:04 AM [facility] Creatinine 0.93 0.66 - 06/02/2019 [facility] 1.25 mg/dL 9:04 AM [facility] GFR Estimate 90 >60 06/02/2019 [place] mL/min/{1. 9:04 AM [facility] 73_m2} HOSPITAL Comment: Non GFR Calc Starting 05/16/2018, serum creatinine ba sed estimated GFR (eGFR) will be calculated using the Chronic Kidney Dise [facility] Epidemiology Collaboration (CKD-EPI) equation. GFR Estimate If >90 >60 mL/min/{1.73_m2} 06/02/2019 9: 04 AM [facility] Comment: GFR Calc Starting 05/16/2018, serum creatinine ba sed estimated GFR (eGFR) will be calculated using the Chronic Kidney Dise [facility] Epidemiology Collaboration (CKD-EPI) equation. Calcium 8.5 8.5 - 10.1 mg/dL 06/02/2019 9:04 AM [facility] Specimen Anatomical Collection Method Collection Time Receive d Time (Source) Location / / Volume Laterality Blood specimen 06/02/2019 8:33 AM 020 8:34 (specimen) ENVIRONMENTAL WEB CRAWLER AM ENVIRONMENTAL WEB CRAWLER Kwadwo Alba MD LAB - BLOOD ORDERABLES Performing Organization Address City/State/ZIP Code Phon e Number [facility] [address], [place] [address] [facility] [address] [place], [place] [address] [phone] Abd/pelvis CT, IV contrast only TRAUMA / AAA (06/01/2019 9:50 PM ENVIRONMENTAL WEB CRAWLER) Anatomical Region Laterality Modality Abdomen/Pelvis, SUBRAD CT BODY, UMP CT ABDOMEN PELVIS, Computed Tomography RAD CT Specimen (Source) Anatomical Collection Method Collection Time Re ceived Time Location / / Volume Laterality 06/01/2019 9:48 PM ENVIRONMENTAL WEB CRAWLER Impressions 06/01/2019 10:26 PM ENVIRONMENTAL WEB CRAWLER IMPRESSION: 1. ??Distal small bowel obstruction. Narrative 06/01/2019 10:26 PM ENVIRONMENTAL WEB CRAWLER EXAM: CT ABDOMEN PELVIS W CONTRAST LOCATION: [facility] DATE/TIME: 06/01/2019 9:48 PM INDICATION: Abdominal pain. COMPARISON: 01/10/2018. TECHNIQUE: CT scan of the abdomen and pe lvis was performed following injection of IV contrast. Multiplanar reformats were obtained. Dose reduction techniques were used. CONTRAST: 100 mL Isovue-370. FINDINGS: LOWER CHEST: Mild dependent atelectasis at the lung bases. HEPATOBILIARY: The gallbladder is contra cted. No calcified gallstones. A few small liver lesions are likely cysts. PANCREAS: Normal. SPLEEN: Normal. ADRENAL GLANDS: Normal. KIDNEYS/BLADDER: Small cortical cyst at the lower pole of the right kidney. No hydronephrosis. BOWEL: There are multiple dilated mid sm all bowel loops. Mild edema in the adjacent mesentery. Specific point of transition is not identified but appears to be in the right lower quadrant. The colon is within normal limits. Appendix is within normal limits. LYMPH NODES: Normal. VASCULATURE: Unremarkable. PELVIC ORGANS: Prostate gland is enlarge d. OTHER: None. MUSCULOSKELETAL: Degenerative disease in the spine. Procedure Note Tien Jewell MD - 06/01/2019Form atting of this note might be different from the original. EXAM: CT ABDOMEN PELVIS W CONTRAST LOCATION: [facility] DATE/TIME: 06/01/2019 9:48 PM INDICATION: Abdominal pain. COMPARISON: 01/10/2018. TECHNIQUE: CT scan of the abdomen and pe lvis was performed following injection of IV contrast. Multiplanar reformats were obtained. Dose reduction techniques were used. CONTRAST: 100 mL Isovue-370. FINDINGS: LOWER CHEST: Mild dependent atelectasis at the lung bases. HEPATOBILIARY: The gallbladder is contra cted. No calcified gallstones. A few small liver lesions are likely cysts. PANCREAS: Normal. SPLEEN: Normal. ADRENAL GLANDS: Normal. KIDNEYS/BLADDER: Small cortical cyst at the lower pole of the right kidney. No hydronephrosis. BOWEL: There are multiple dilated mid sm all bowel loops. Mild edema in the adjacent mesentery. Specific point of transition is not identified but appears to be in the right lower quadrant. The colon is within normal limits. Appendix is within normal limits. LYMPH NODES: Normal. VASCULATURE: Unremarkable. PELVIC ORGANS: Prostate gland is enlarge d. OTHER: None. MUSCULOSKELETAL: Degenerative disease in the spine. IMPRESSION: 1. Distal small bowel obstruction. Maritza Cheema DO IMG CT ORDERABLES EKG 12 lead (06/01/2019 9:09 PM ENVIRONMENTAL WEB CRAWLER) [facility] Method Time Signature Interpretation ECG Click View RADIOLOGY Image link RESULTS to view waveform and result Specimen (Source) Anatomical Collection Method Collection Time Re ceived Time Location / / Volume Laterality 06/01/2019 9:09 PM ENVIRONMENTAL WEB CRAWLER Maritza Cheema DO ECG ORDERABLES Performing Organization Address City/State/ZIP Code Phon e Number RADIOLOGY RESULTS Lipase (06/01/2019 8:42 PM ENVIRONMENTAL WEB CRAWLER) athologist Signature Lipase 198 73 - 393 06/01/2019 [facility] U/L 9:09 PM [facility] Specimen Anatomical Collection Method Collection Time Receive d Time (Source) Location / / Volume Laterality Blood specimen 06/01/2019 8:42 PM 020 8:47 (specimen) ENVIRONMENTAL WEB CRAWLER PM ENVIRONMENTAL WEB CRAWLER Maritza Cheema DO LAB - BLOOD ORDERABLES Performing Organization Address City/State/ZIP [facility] Phon e Number [facility] [address] [address] [facility] [address] [phone] (ABNORMAL) Comprehensive metabolic panel (06/01/2019 8:42 PM ENVIRONMENTAL WEB CRAWLER) athologist Signature Sodium 141 133 - 144 06/01/2019 [place] mmol/L 8:59 PM [facility] Potassium 3.8 3.4 - 5.3 06/01/2019 [place] mmol/L 8:59 PM [facility] Chloride 108 94 - 109 06/01/2019 [place] mmol/L 8:59 PM [facility] Carbon Dioxide 26 20 - 32 06/01/2019 [facility] mmol/L 9:09 PM [facility] Anion Gap 7 3 - 14 06/01/2019 [facility] mmol/L 9:09 PM [facility] Glucose 117 (H) 70 - 99 06/01/2019 [facility] mg/dL 9:09 PM [facility] Urea Nitrogen 22 7 - 30 06/01/2019 [facility] mg/dL 9:09 PM [facility] Creatinine 1.00 0.66 - 06/01/2019 [facility] 1.25 mg/dL 9:09 PM [facility] GFR Estimate 82 >60 06/01/2019 [facility] mL/min/{1. 9:09 PM [facility] 73_m2} HOSPITAL Comment: Non GFR Calc Starting 05/16/2018, serum creatinine ba sed estimated GFR (eGFR) will be calculated using the Chronic Kidney Dise [facility] Epidemiology Collaboration (CKD-EPI) equation. GFR Estimate If >90 >60 mL/min/{1.73_m2} 06/01/2019 9: 09 PM [facility] Comment: GFR Calc Starting 05/16/2018, serum creatinine ba sed estimated GFR (eGFR) will be calculated using the Chronic Kidney Dise [facility] Epidemiology Collaboration (CKD-EPI) equation. Calcium 9.3 8.5 - 10.1 mg/dL 06/01/2019 9:[address] [facility] Bilirubin Total 0.5 0.2 - 1.3 mg/dL 06/01/2019 9:09 PM [facility] Albumin 4.4 3.4 - 5.0 g/dL 06/01/2019 9:09 PM [facility] Protein Total 7.5 6.8 - 8.8 g/dL 06/01/2019 9:09 PM [facility] Alkaline Phosphatase 74 40 - 150 U/L 06/01/2019 9:09 PM [facility] ALT 22 0 - 70 U/L 06/01/2019 9:09 PM [facility] AST 19 0 - 45 U/L 06/01/2019 9:09 PM [facility] Specimen Anatomical Collection Method Collection Time Receive d Time (Source) Location / / Volume Laterality Blood specimen 06/01/2019 8:42 PM 01/03/2 020 8:47 (specimen) ENVIRONMENTAL WEB CRAWLER PM ENVIRONMENTAL WEB CRAWLER Maritza Cheema DO LAB - BLOOD ORDERABLES Performing Organization Address City/State/ZIP Code Phon e Number [facility] [address], [place] [address] [facility] [address] [place], [place] [address] [phone] (ABNORMAL) CBC with platelets differential (06/01/2019 8:42 PM ENVIRONMENTAL WEB CRAWLER) [facility] gist Method Time Signature WBC 11.4 (H) 4.0 - 06/01/2019 [facility] 11.0 8:50 PM [facility] 10e9/L [facility] RBC Count 5.28 4.4 - 5.9 06/01/2019 [facility] 10e12/L 8:50 PM [facility] Hemoglobin 15.0 13.3 - 06/01/2019 [facility] 17.7 g/dL 8:50 PM [facility] Hematocrit 46.9 40.0 - 06/01/2019 [facility] 53.0 % 8:50 PM [facility] MCV 89 78 - 100 06/01/2019 [facility] fl 8:50 PM [facility] MCH 28.4 26.5 - 06/01/2019 [facility] 33.0 pg 8:50 PM [facility] MCHC 32.0 31.5 - 06/01/2019 [facility] 36.5 g/dL 8:50 PM [facility] RDW 12.5 10.0 - 06/01/2019 [facility] 15.0 % 8:50 PM [facility] Platelet Count 245 150 - 450 06/01/2019 [facility] 10e9/L 8:50 PM [facility] Diff Method Automated 06/01/2019 [facility] Method 8:50 PM [facility] % Neutrophils 70.1 % 06/01/2019 [facility] 8:50 PM [facility] % Lymphocytes 19.3 % 06/01/2019 [facility] 8:50 PM [facility] % Monocytes 7.2 % 06/01/2019 [facility] 8:50 PM [facility] % Eosinophils 2.0 % 06/01/2019 [facility] 8:50 PM [facility] % Basophils 0.9 % 06/01/2019 [facility] 8:50 PM [facility] % Immature 0.5 % 06/01/2019 [facility] Granulocytes 8:50 PM [facility] Nucleated RBCs 0 0 /100 06/01/2019 [facility] 8:50 PM [facility] Absolute 8.0 1.6 - 8.3 06/01/2019 [facility] Neutrophil 10e9/L 8:50 PM [facility] Absolute 2.2 0.8 - 5.3 06/01/2019 [facility] Lymphocytes 10e9/L 8:50 PM [facility] Absolute 0.8 0.0 - 1.3 06/01/2019 [facility] Monocytes 10e9/L 8:50 PM [facility] Absolute 0.2 0.0 - 0.7 06/01/2019 [facility] Eosinophils 10e9/L 8:50 PM [facility] Absolute 0.1 0.0 - 0.2 06/01/2019 [facility] Basophils 10e9/L 8:50 PM [facility] Abs Immature 0.1 0 - 0.4 06/01/2019 [facility] Granulocytes 10e9/L 8:50 PM [facility] Absolute 0.0 06/01/2019 [facility] Nucleated RBC 8:50 PM [facility] Specimen Anatomical Collection Method Collection Time Receive d Time (Source) Location / / Volume Laterality Blood specimen 06/01/2019 8:42 PM 020 8:47 (specimen) ENVIRONMENTAL WEB CRAWLER PM ENVIRONMENTAL WEB CRAWLER Maritza Cheema DO LAB - BLOOD ORDERABLES Performing Organization Address City/State/ZIP Code Phon e Number M [place] [address] [address] [address] [facility] [address] [phone] documented in this encounter Visit Diagnoses Diagnosis Small bowel obstruction (H) Unspecified intestinal obstruction SBO (small bowel obstruction) (H) Unspecified intestinal obstruction documented in this encounter Administered Medications Inactive Administered Medications - up to 3 most recent administrations Medication Order MAR Action Action Date Dose Rate Site dextrose 5% and 0.45% NaCl Rate/Dose Verify 06/02/2019 7:45 AM ENVIRONMENTAL WEB CRAWLER 125 mL/hr + KCl 20 mEq/L infusion at 125 mL/hr, Intravenous, CONTINUOUS, Starting on 06/02/19 at 0215, Until 06/02/19 at 1610 New Bag 06/02/2019 3:37 AM ENVIRONMENTAL WEB CRAWLER 125 mL/hr HYDROmorphone (DILAUDID) injection 1 mg Given 06/01/2019 10:22 PM ENVIRONMENTAL WEB CRAWLER 1 mg 1 mg, Intravenous, ONCE, On Tue06/01/19 at 2116, For 1 dose iopamidol (ISOVUE-370) solution 500 mL Given 06/01/2019 9:49 PM ENVIRONMENTAL WEB CRAWLER 100 mLs 500 mL, Intravenous, ONCE, On Tue06/01/19 at 2149, For 1 dose ondansetron (ZOFRAN) injection 4 mg Given 06/01/2019 10:22 PM ENVIRONMENTAL WEB CRAWLER 4 mg 4 mg, Intravenous, ONCE, Administer over 2-5 Minutes, On Tue06/01/19 at 2116, For 1 dose, Irritant. For ordered IV doses 0.1-4 mg, give IV Push undiluted over 2-5 minutes. ondansetron (ZOFRAN) injection 4 mg 4 mg, Intravenous, EVERY 6 HOURS PRN, nausea, vomiting , Administer over 2-5 Minutes, Starting on 06/02/19 at 0204, This is Step 1 of nausea and vomiting management. If nausea not resolved in 15 minutes, go t o Step 2 prochlorperazine (COMPAZINE). Irritant. For ordered IV do ses 0.1-4 mg, give IV Push undiluted over 2-5 minutes. ondansetron (ZOFRAN) injection 4 mg Given 06/02/2019 12:42 AM ENVIRONMENTAL WEB CRAWLER 4 mg 4 mg, Intravenous, ONCE, Administer over 2-5 Minutes, On 06/02/19 at 0039, For 1 dose, Irritant. For ordered IV doses 0.1-4 mg, give IV Push undiluted over 2-5 minutes. ondansetron (ZOFRAN-ODT) ODT tab 4 mg 4 mg, Oral, EVERY 6 HOURS PRN, nausea, v omiting, Starting on 06/02/19 at 0204, This is Step 1 of nausea and vomiting management. If n ausea not resolved in 15 minutes, go to Step 2 prochlorperazine (COMPAZINE). Do not push through foil backing. Peel back foil and gently remove. Place on to ngue immediately. Administration with liquid unnecessary W ith dry hands, peel back foil backing and gently remove tablet. Do not push oral d isintegrating tablet through foil backing. Administer immediately on tongue and oral disintegrati ng tablet dissolves in seconds, then swallow with saliva. Liquid not required . prochlorperazine (COMPAZINE) injection 1 0 mg 10 mg, Intravenous, EVERY 6 HOURS PRN, nausea, vomitin g, Administer over 1-2 Minutes, Starting on 06/02/19 at 0204, This is Step 2 of nausea and vomiting management. Give if nausea not resolved 15 minutes aft er giving ondansetron (ZOFRAN). If nausea not resolved in 15 minutes, go to Step 3 metoclopramide (REGLAN), if ordered. For ordered IV dos es 0.1-10 mg, give IV Push undiluted. Each 5mg over 1 minute. prochlorperazine (COMPAZINE) Suppository 25 mg 25 mg, Rectal, EVERY 12 HOURS PRN, nausea, vomiting, S tarting on 06/02/19 at 0204, This is Step 2 of nausea and vomit ing management. Give if nausea not resolved 15 minutes after giving ondansetron (ZOF RAN). If nausea not resolved in 15 minutes, go to Step 3 metoclopramide (REGLAN), if ordered. prochlorperazine (COMPAZINE) tablet 10 m g 10 mg, Oral, EVERY 6 HOURS PRN, vomiting , Starting on 06/02/19 at 0204, This is Step 2 of nausea and vomiting management . Give if nausea not resolved 15 minutes after giving ondansetron (ZOFRAN). If na usea not resolved in 15 minutes, go to Step 3 metoclopramide (REGLAN), if ordered. sodium chloride (PF) 0.9% PF flush 3 mL Given 06/02/2019 3:40 AM ENVIRONMENTAL WEB CRAWLER 3 mLs 3 mL, Intracatheter, EVERY 8 HOURS, First dose on 06/02/19 at 0215, And Q1H PRN, to lock peripheral IV dormant line. sodium chloride 0.9 % bag 500mL for CT scan Given 06/01/2019 9:49 PM ENVIRONMENTAL WEB CRAWLER 65 mLs flush use Intravenous, 100 mL, ONCE, On Tue06/01/19 at 2149, For 1 dose, This entry is for use by Radiology to intermittently used as a flush in patients receiving a CT scan. documented in this encounter Active and Recently Administered Medications Times are shown in [employer]. Scheduled Medication Order 05/31/2019 06/01/2019 06/02/2019 HYDROmorphone (DILAUDID) injection 1 mg (COMPLETED) 2221 (Given - Provider: Erick Cano RN) 1 mg, Intravenous, ONCE, 1 dose, 06/01/19 at 2116 iopamidol (ISOVUE-370) solution 500 mL (COMPLETED) 2148 (Given - Provider: Yane Perrin - Comment: Bulk) 500 mL, Intravenous, ONCE, 06/01/19 at 214, For 1 dose ondansetron (ZOFRAN) injection 4 mg (COMPLETED) 2221 (Given - Provider: Erick Cano RN) 4 mg, Intravenous, ONCE, Administer over 2-5 Minutes, 06/01/19 at 2116, For 1 dose, Irritant. For ordered IV doses 0.1-4 mg, give IV Push undiluted over 2-5 minutes. ondansetron (ZOFRAN) injection 4 mg (COMPLETED) 41 (Given - Provider: Dorothea Plascencia RN) 4 mg, Intravenous, ONCE, Administer over 2-5 Minutes, 06/02/19 at 0039, For 1 dose, Irritant. For ordered IV doses 0.1-4 mg, give IV Push undiluted over 2-5 minutes. sodium chloride (PF) 0.9% PF flush 3 mL 0340 (Given - Provider: Yasmeen Davidson)1009 (Not Given - Provider: Tali Cassidy RN - Reason: IV Infusing)1815 (Canceled Entry - Provider: Orders Generic Provider - Comment: Automatically canceled at discontinue of medication order) 3 mL, Intracatheter, EVERY 8 HOURS, Firs t dose on 06/02/19 at 0215, And Q1H PRN, to lock peripheral IV dormant line. sodium chloride 0.9 % bag 500mL for CT scan flush use (COMPL ETED) 2148 (Given - Provider: Yane Perrin) Intravenous, 100 mL, ONCE, 06/01/19 at 2149, For 1 dose, This entry is for use by Radiology to intermittently used as a flush in patients receiving a CT scan. Continuous Medication Order 05/31/2019 06/01/2019 06/02/2019 dextrose 5% and 0.45% NaCl + KCl 20 mEq/L infusion (CANCELED) 0337 (New Bag - Provider: Yasmeen Davidson)0745 (Rate/Dose Verify - Provider: Tali Cassidy RN)1418 (Stopped - Provider: Tali Cassidy RN) at 125 mL/hr, Intravenous, CONTINUOUS, S tarting 06/02/19 at 0215, Until 06/02/19 at 1610 PRN Medication Order 05/31/2019 06/01/2019 06/02/2019 acetaminophen (TYLENOL) Suppository 650 mg 650 mg, Rectal, EVERY 4 HOURS PRN, mild pain, Starting 06/02/19 at 0204, Alternate ibuprofen (if ordered) with acetaminophen. Maximum acetaminophen dose from all sources = 75 mg/kg/day not to exceed 4 grams/day. HYDROmorphone (PF) (DILAUDID) injection 0.3-0.5 mg 0.3-0.5 mg, Intravenous, EVERY 2 HOURS P RN, Starting 06/02/19 at 0204, Until 06/02/19 at 1945, for pain control or improvement in physical function. Hold dose for analgesic side effects., Start at t he lowest dose. May adjust dose by 0.1 m g every 2 hours as needed. Notify provider to assess for uncontrolled pain or analgesic side effects. Hold while on PLASTICS NURSE or with regular IV opioid dosing. Give if PO opioid is not being used. For ordered IV doses 0.1-4 mg give IV Push undiluted. Administer each 2mg over 2-5 minutes. lidocaine (LMX4) cream Topical, EVERY 1 HOUR PRN, pain, with VA D insertion or accessing implanted port., Starting 06/02/19 at 0204, Do NOT give if patient has a history of allergy to any local anesthetic or any celine prod uct. Apply at least 30 minutes prior to VAD insertion or port access. In divided doses as needed for size of site for insertion with MAX Dose: 2.5 g (?? of 5 g tube) lidocaine 1 % 0.1-1 mL 0.1-1 mL, Other, EVERY 1 HOUR PRN, mild pain with VAD insertion., Starting 06/02/19 at 0204, Do NOT give if patient has a history of allergy to any local anesthetic or any celine product. MAX dose 1 mL subcutaneous OR intradermal in divided doses as needed for VA D insertion. melatonin tablet 1 mg 1 mg, Oral, AT BEDTIME PRN, sleep, Start ing 06/02/19 at 0204, Do not give unless at least 6 hours of uninterrupted sleep is expected. naloxone (NARCAN) injection 0.1-0.4 mg 0.1-0.4 mg, Intravenous, EVERY 2 MIN PRN , opioid reversal, Starting 06/02/19 at 0204, For respiratory rate LESS than or EQUAL to 8. Partial reversal dose: 0.1 mg titrated q 2 minutes for Analgesia Eleuterio e Effects Monitoring Sedation Level of 3 (frequently drowsy, arousable, drifts to sleep during conversation).Full reversal dose: 0.4 mg bolus for Analgesia Side Effects Monitoring Sedation Level of 4 (s omnolent, minimal or no response to stim ulation). For ordered IV doses 0.1-2mg give IVP. Give each 0.4mg over 15 seconds in emergency situations. For non- emergent situations further dilute in 9mL of NS to facilitate titration of response. ondansetron (ZOFRAN) injection 4 mg(Linked Group 1) 4 mg, Intravenous, EVERY 6 HOURS PRN, na usea, vomiting, Administer over 2-5 Minutes, Starting 06/02/19 at 0204, This is Step 1 of nausea and vomiting management. If nausea not resolved in 15 minutes, go to Step 2 prochlorperazine (COMPAZINE ). Irritant. For ordered IV doses 0.1-4 mg, give IV Push undiluted over 2-5 minutes. ondansetron (ZOFRAN-ODT) ODT tab 4 mg(Linked Group 1) 4 mg, Oral, EVERY 6 HOURS PRN, nausea, v omiting, Starting 06/02/19 at 0204, This is Step 1 of nausea and vomiting management. If nausea not resolved in 15 minutes, go to Step 2 prochlorperazine (DEN ZINE). Do not push through foil backing. Peel back foil and gently remove. Place on tongue immediately. Administration with liquid unnecessary With dry hands, peel back foil backing and gently remove ta blet. Do not push oral disintegrating ta blet through foil backing. Administer immediately on tongue and oral disintegrating tablet dissolves in seconds, then swallow with saliva. Liquid not required. oxyCODONE (ROXICODONE) tablet 5-10 mg 5-10 mg, Oral, EVERY 3 HOURS PRN, pain c ontrol or improvement in physical function. Hold dose for analgesic side effects., Starting 06/02/19 at 0204, Start with the lowest dose. May adjust dose by 5 m g every 3 hours as needed. Notify provid er to assess for uncontrolled pain or analgesic side effects. Hold while on PLASTICS NURSE or with regular IV opioid dosing. prochlorperazine (COMPAZINE) injection 10 mg(Linked Group 2) 10 mg, Intravenous, EVERY 6 HOURS PRN, n ausea, vomiting, Administer over 1-2 Minutes, Starting 06/02/19 at 0204, This is Step 2 of nausea and vomiting management. Give if nausea not resolved 15 minute s after giving ondansetron (ZOFRAN). If nausea not resolved in 15 minutes, go to Step 3 metoclopramide (REGLAN), if ordered. For ordered IV doses 0.1-10 mg, give IV Push undiluted. Each 5mg over 1 minute. prochlorperazine (COMPAZINE) Suppository 25 mg(Linked Group 2) 25 mg, Rectal, EVERY 12 HOURS PRN, nause a, vomiting, Starting 06/02/19 at 0204, This is Step 2 of nausea and vomiting management. Give if nausea not resolved 15 minutes after giving ondansetron (ZOFRA N). If nausea not resolved in 15 minutes , go to Step 3 metoclopramide (REGLAN), if ordered. prochlorperazine (COMPAZINE) tablet 10 mg(Linked Group 2) 10 mg, Oral, EVERY 6 HOURS PRN, vomiting , Starting 06/02/19 at 0204, This is Step 2 of nausea and vomiting management. Give if nausea not resolved 15 minutes after giving ondansetron (ZOFRAN). If naus ea not resolved in 15 minutes, go to Axel p 3 metoclopramide (REGLAN), if ordered. sodium chloride (PF) 0.9% PF flush 3 mL 3 mL, Intracatheter, EVERY 1 MIN PRN, li ne flush, for peripheral IV flush post IV meds, Starting 06/02/19 at 0204 Linked Groups Order Group 1: ondansetron (ZOFRAN-ODT) ODT tab 4 mgJump to med 4 mg, Oral, EVERY 6 HOURS PRN, nausea, v omiting, Starting 06/02/19 at 0204
This is Step 1 of nausea and vomiting management. If nausea not resolved in 15 minutes, go to Axel p 2 prochlorperazine (COMPAZINE). Do not push through foil backing. Peel back foil and gently remove. Place on tongue immediately. Administration with liquid unnecessary With dry hands, peel ba ck foil backing and gently remove tablet . Do not push oral disintegrating tablet through foil backing. Administer immediately on tongue and oral disintegrating tablet dissolves in seconds, then swallow with saliva. Liquid not required.
Or ondansetron (ZOFRAN) injection 4 mgJump to med 4 mg, Intravenous, EVERY 6 HOURS PRN, na usea, vomiting, Administer over 2-5 Minutes, Starting 06/02/19 at 0204
This is Step 1 of nausea and vomiting management. If nausea n ot resolved in 15 minutes, go to Step 2 prochlorperazine (COMPAZINE). Irritant. For ordered IV doses 0.1-4 mg, give IV Push undiluted over 2-5 minutes.
Group 2: prochlorperazine (COMPAZINE) injection 10 mgJump to med 10 mg, Intravenous, EVERY 6 HOURS PRN, n ausea, vomiting, Administer over 1-2 Minutes, Starting 06/02/19 at 0204
This is Step 2 of nausea and vomiting management. Give if nausea not resolved 1 5 minutes after giving ondansetron (ZOFR AN). If nausea not resolved in 15 minutes, go to Step 3 metoclopramide (REGLAN), if ordered. For ordered IV doses 0.1-10 mg, give IV Push undiluted. Each 5mg over 1 minute.
Or prochlorperazine (COMPAZINE) tablet 10 mgJump to med 10 mg, Oral, EVERY 6 HOURS PRN, vomiting , Starting 06/02/19 at 0204
This is Step 2 of nausea and vomiting management. Give if nausea not resolved 15 minutes after giving ondansetron (ZOFRAN). If nausea not resolved in 15 minut es, go to Step 3 metoclopramide (REGLAN), if ordered.
Or prochlorperazine (COMPAZINE) Suppository 25 mgJump to med 25 mg, Rectal, EVERY 12 HOURS PRN, nause a, vomiting, Starting 06/02/19 at 0204
This is Step 2 of nausea and vomiting management. Give if nausea not resolved 15 minutes after giving ondansetro n (ZOFRAN). If nausea not resolved in 15 minutes, go to Step 3 metoclopramide (REGLAN), if ordered.
documented in this encounter Care Teams Director Special Education Relationship Specialty Start Date End Date No Ref-Primary, Physician PCP - General 08/28/17 documented as of this encounter
--- OUTSIDE RECORDS SUMMARY | 2022-02-16 09:49 | XMS_ITS | Encounter Summary ---
:1960 Author Organization [place] Address [address] [place] [id number] Care Team Providers Name Role Phone None, Bfp Primary Care Provider Unavailable Encounter Details Date Type Department Care Team Description 03/20/2003 Historic Results [facility] Heart Unknown, [address] [place] [address] Social History Tobacco Use Types Packs/Day Years Used Date Never Assessed Sex Assigned at Date Recorded Not on file documented as of this encounter Plan of Treatment Not on filedocumented as of this encounter Procedures Procedure Name Priority Date/Time Associated Diagnosis Comme nts NUCLEAR CARDIAC - HIM 03/20/2003 12:00 AM CDT SCAN - ARCHIVE documented in this encounter Results NUCLEAR CARDIAC - HIM SCAN - ARCHIVE (03/20/2003 12:00 AM CDT) Specimen (Source) Anatomical Location Collection Method / Collectio n Time Received Time / Laterality Volume 03/20/2003 Narrative This result has an attachment that is no t available. Provider Scan IMG NM ORDERABLES documented in this encounter Visit Diagnoses Not on filedocumented in this encounter Care Teams Pad Machine Offbearer Relationship Specialty Start Date End Date None, Bfp PCP - General 06/12/99 01/27/17 documented as of this encounter
--- OUTSIDE RECORDS SUMMARY | 2022-02-16 09:49 | XMS_ITS | Encounter Summary ---
:1960 Author Organization [place] Address [address] [place] [id number] Care Team Providers Name Role Phone None, Bfp Primary Care Provider Unavailable Encounter Details Date Type Department Care Team Description 07/11/2007 Historic Results INTERFACED REPORT Prince [place]arrub[place] [address] (Wo rk) Social History Tobacco Use Types Packs/Day Years Used Date Never Assessed Sex Assigned at Date Recorded Not on file documented as of this encounter Plan of Treatment Not on filedocumented as of this encounter Procedures Procedure Name Priority Date/Time Associated Diagnosis Comme [facility] HISTOPATHOLOGY Routine 07/11/2007 12:00 AM Result s for this BUSINESS PLANNING ANALYST procedure are i n the results section . documented in this encounter Results Histopathology (07/11/2007 12:00 AM BUSINESS PLANNING ANALYST) Component Value Ref Test Analysis Performed At [facility] Range Method Time Signature Copath Report [facility]: [id number] [facility] Name: SUNDAY MYERS MR#: [id number] Specimen #: [id number] Collected: 07/11/2007 Received: 07/11/2007 Reported: 07/12/2007 15:32 Ordering Phy(s): PRINCE COVARRUBIAS Additional Phy(s): MARCUS RESENDEZ SPECIMEN(S): Rectal polyps FINAL DIAGNOSIS: Rectal polyps, biopsy/polypectomy - Two fragments of hyperpl astic polyp(s). ??No evidence of malignancy. Electronically signed out by: Brad Yung M.D. CLINICAL HISTORY: Screening. GROSS: The specimen is labeled two rectal polyps, one by hot snare , one by hot biopsy and it consists of two pink-leroy fragments of tissue aggregating to 0.4 x 0.2 x 0.2 cm. ??Entirely submitted. ??ABDULLAHI/carly MICROSCOPIC: Microscopic evaluation was performed. Tanya 07-12-07 TESTING LAB LOCATION: [facility] [address] [address] [place], [place] ??[phone] COLLECTION SITE: Client: [facility] Location: ENDO (R) Specimen (Source) Anatomical Collection Method Collection Time Re ceived Time Location / / Volume Laterality 07/11/2007 07/12/2007 3:33 PM BUSINESS PLANNING ANALYST Prince Covarrubias MD LAB - [facility] SPECIAL DIAG OR DERABLES Performing Organization Address City/State/ZIP Code Phon e Number COPATH documented in this encounter Visit Diagnoses Not on filedocumented in this encounter Care Teams Report Developer Relationship Specialty Start Date End Date None, Bfp PCP - General 06/12/99 01/27/17 documented as of this encounter
--- OUTSIDE RECORDS SUMMARY | 2022-02-16 09:49 | XMS_ITS | Encounter Summary ---
:1960 Author Organization [place] Address [address] [place] [address] Care Team Providers Name Role Phone None, Bfp Primary Care Provider Unavailable Encounter Details Date Type Department Care Team Description 03/20/2003 Historic Results [facility] Unknown, [address] [place] [address] Social History Tobacco Use Types [...] on filedocumented in this encounter Care Teams Irradiated Fuel Handler Relationship Specialty Start Date End Date None, Bfp PCP - General 06/12/99 01/27/17 documented as of this encounter
--- OUTSIDE RECORDS SUMMARY | 2022-02-16 09:49 | XMS_ITS | Encounter Summary ---
:1960 Author Organization [facility] Address [address] [place] [id number] Care Team Providers Name Role Phone No Ref-Primary, Physician Primary Care Provider [phone] Reason for Visit Reason Comments Depression Suicidal Encounter Details Date Type Department Care Team Description 08/28/2017 - Emergency [facility] Aurora Bishop MD Suicidal ideation 08/29/2017 [facility] Emergency Dep t [facility] [address] [place], [place] [address] [facility] [id number] [place], [place] [phone] (Wo rk) Social History Tobacco Use Types Packs/Day Years Used Date Never Smoker Smokeless Tobacco: Never Used Alcohol Use Standard Drinks/Week Comments Yes 0 (1 standard drink = 0.6 oz pure alcoho l) once a week Alcohol Habits Answer Date Recorded How often do you have a drink containing alcohol? Not asked How many drinks containing alcohol do you have on a Not aske d typical day when you are drinking? How often do you have six or more drinks on one occasion? No t asked Comment: once a week 08/28/2017 Sex Assigned at Date Recorded Not on file documented as of this encounter Last Filed Vital Signs Vital Sign Reading Time Taken Comments Blood Pressure 137/91 08/28/2017 11:00 PM CDT Pulse - - Temperature 36.6 ??C (97.9 ??F) 08/28/2017 4:51 PM CDT Respiratory Rate 18 08/28/2017 8:00 PM CDT Oxygen Saturation 95% 08/28/2017 7:55 PM CDT Inhaled Oxygen Concentration - - Weight - - Height - - Body Mass Index - - documented in this encounter Medications at Time of Discharge Medication Sig Dispensed Refills Start Date End Date vortioxetine Take 1 tablet (5 30 tablet 0 08/31/20172017 (TRINTELLIX/BRINTELLIX) 5 mg) by mouth daily MG tabletIndications: MDD (major depressive disorder), single episode, severe (H) documented as of this encounter ED Notes Ernestina Rendon, EVELYN - 08/28/2017 5:29 PM CDT Pt placed on JUAN DIEGO, changed into behavior scrubs and read rights. Pt tearful and nodded head. Ernestina Rendon RN - 08/28/2017 4:52 PM CDT Pt here with c/o hopelessness. Pt tearful stating, I'm ready to draw last breath and states I'm not fighting anymore. Pt denies plan to hurt himself. Poor eye contact. Has never been on medication for depression or anxiety. Has never met with psychiatrist. States he did have some alcohol tonight, doesn't normally drink. Denies drug use. Pt does have access to guns at home, but states he wouldn'tuse them on myself. Pt brought in by family, pt lives with and step daughter. Denies homicidalideation. ABC intact. A&O x4. Aurora Bishop MD - 08/28/2017 4:34 PM CDT History Chief Complaint: Suicidal The history is provided by the patient and a relative. The patient is a poor historian. Sunday Myers is a 56 year old male who presents to the emergency department today for evaluation of suicidal thoughts. For many months now, the patient has been feeling depressed and sad. He reports that he now feels okay with taking his last breath, and has been thinking about taking his life without a more specific plan. He has not been diagnosed with depression, and has never talked to anyoneabout depression. He reports that these feelings of depression come and go, but have worsened recently. He reports that he does not have thoughts of hurting himself or others. He has not had any recentnoticeable increases in his life stressors, and lives at home with his , daughter, and pets. He denies cold symptoms, fluid or food intake changes, and normally drinks alcohol very rarely, however he did have two drinks today. He has not seen his primary care provider in some years, but has been seeing an eye doctor for intermittent blurriness in his right eye, which has not worsened. Denies any ingestion or other attempts at self-harm. Denies any homicidal ideation. Of note, he reports that he does have firearms at home. Family also says: No known medical history problems. He is a binge drinker, approximately every 3 weeks, drinks greater than 4 drinks at a time for several days, no history of withdrawal symptoms or other problems. His is away for 1 week and return last night, see if he is doing fine until earlier this evening, when he was not doing basic tasks of preparing dinner. They then found him wandering in the barn on the property, tearful, stating that he was ready to . Allergies: No Known Drug Allergies Medications: Medications reviewed. No pertinent medications. Past Medical History: History reviewed. No pertinent medical history. Past Surgical History: History reviewed. No pertinent surgical history. Family History: History reviewed. No pertinent family history. Social History: The patient was accompanied to the ED by family. Smoking Status: Never Smoker Smokeless Tobacco: Never Used Alcohol Use: Positive - rare Marital Status: Review of Systems Constitutional: Negative for appetite change and fever. Respiratory: Negative for cough. Psychiatric/Behavioral: Positive for suicidal ideas. Negative for self-injury. All other systems reviewed and are negative. Physical Exam Patient Vitals for the past 24 hrs: BP Temp Temp src Heart Rate Resp SpO2 08/28/17 2300 (!) 137/91 - - - - - 08/28/17 2200 147/88 - - - - - 08/28/17 2120 138/70 - - - - - 08/28/17 2100 125/66 - - - - - 08/28/171999 108/78 - - 59 18 - 08/28/171954 - - - - - 95 % 08/28/17 1930 124/76 - - 53 - 96 % 08/28/17 190 98 - - 58 16 97 % 08/28/17 1651 (!) 135/113 97.9 ??F (36.6 ??C) Temporal 65 20 98 % Physical Exam Constitutional: Well developed, Well nourished, tearful and anxious appearing. Otherwise no distress. HENT: Bilateral external ears normal, Mucous membranes dry, Nose normal. Neck- Normal range of motion, Supple. Slight lateral nystagmus. Eyes: PERRL, EOMI, conjunctivae unremarkable Respiratory: Normal breath sounds, No respiratory distress, No wheezing, Cardiovascular: Normal heart rate, Normal rhythm, No murmurs, GI: Bowel sounds normal, Soft, No tenderness, Musculoskeletal: Intact distal pulses, No edema, grossly unremarkable range of motion Integument: Warm, Dry Neurological: Alert, attentive and oriented to person, place and time Cranial nerves 2-12 intact; 5/5 strength throughout the upper and lower extremities; Sensation intact to light touch throughout the upper and lower extremities; [id number] testing unremarkable Psychiatric: Mildly intoxicated appearing. Tearful, anxious, poor eye-contact, flat affect Emergency Department Course ECG: ECG taken at 1805, ECG read at 1812 Sinus bradycardia Cannot rule out Anterior infract, age undetermined ST & T wave abnormality, consider inferior ischemia Abnormal ECG Rate 53 bpm. VA interval 158 ms. QRS duration 108 ms. QT/QTc 436/409 ms. P-R-T axes 58 24 -55. Imaging: Radiology findings were communicated with the patient who voiced understanding of the findings. CT Head w/o & w Contrast Normal CT scan of the head. No enhancing lesions are Identified. Reading per radiology Laboratory: Laboratory findings were communicated with the patient who voiced understanding of the findings. Drug abuse screen: Negative Salicylate level: <2 TSH with free T4 reflex: 1.44 Lipase (1731): 186 CBC: WBC 6.7, HGB 15.3, PLT 227 CMP: Glucose: 104, Calcium: 8.4 o/w WNL (Creatinine 1.00) ETOH (1731): 0.16 Acetaminophen level (1731): <2 Troponin I (1731): <0.015 Emergency Department Course: 1651 Nursing notes and vitals reviewed. 1651 I performed an exam of the patient as documented above. 1706 The patient provided a urine sample here in the emergency department. This was sent for laboratory testing, findings above. IV was inserted and blood was drawn for laboratory testing, results above. 1715 IV was inserted and blood was drawn for laboratory testing, results above. 173 The patient was sent for a CT while in the emergency department, results above. 1956 IV was inserted and blood was drawn for laboratory testing, results above. 2049 Patient was rechecked and updated. The patient is awake, alert, and with no concerns at this time. 2129 I spoke with DEC regarding patient's presentation, findings, and plan of care. She agreed with a plan for admission for depression. 2144 I personally reviewed the lab and imaging results with the patient and answered all related questions prior to admission. He agrees with plan. Impression & Plan Medical Decision Making: Sunday Myers is a 56 year old male who presents for evaluation of depressed mood. There is no history of depression in the past and they are not on medications. There is no signs at this point of a general medical problem causing depression (brain tumor, metabolic derangement like hypothyroidism). He had endorsed some vision changes absolutely no mental health history, therefore CT imaging of the brain usual causes including malignancy; this is unremarkable. Patient appears decompensated by my exam. They are exhibiting signs that warrant inpatient hospitalization including suicidal ideation, as well as access to firearms which increases his risk for suicide completion. I am concerned therefore about their well-being and ability to safely function in community. JUAN DIEGO hold was placed. [facility] recommendations are noted above. They as well agree with the above recommendations. An ingestion workup was done. Findings show nothing. Based on this I doubt a significant ingestion and patient denies this. I would not hospitalize or do other lab tests at this point. Diagnosis: ICD-10-CM 1. Suicidal ideation R45.851 Disposition: Admission Scribe Disclosure: I, Miguel Kuldip, am serving as a scribe at 4:47 PM on 08/28/2017 to document services personally performed by Aurora Bishop MD based on my observations and the provider's statements to me. [facility] EMERGENCY DEPARTMENT Aurora Bishop MD 08/29/17 0001 documented in this encounter Plan of Treatment Not on filedocumented as of this encounter Procedures Procedure Name Priority Date/Time Associated Comments Diagnosis DRUG ABUSE SCREEN 77 STAT 08/28/2017 7:59 PM R esults for this URINE (FL, RH, SH) CDT procedure are in the results section. CT HEAD W/O & W STAT 08/28/2017 7:43 PM Result s for this CONTRAST CDT procedure are i n the results section. EKG 12-LEAD, TRACING STAT 08/28/2017 6:05 PM R esults for this ONLY CDT procedure are i n the results section. CBC WITH PLATELETS & STAT 08/28/2017 5:32 PM R esults for this DIFFERENTIAL CDT procedure are i n the results section. TSH WITH FREE T4 STAT 08/28/2017 5:32 PM Resul ts for this REFLEX CDT procedure are i n the results section. TROPONIN I Routine 08/28/2017 5:32 PM Results f or this CDT procedure are i n the results section. SALICYLATE LEVEL Routine 08/28/2017 5:32 PM Resul ts for this CDT procedure are i n the results section. LIPASE STAT 08/28/2017 5:32 PM Results f or this CDT procedure are i n the results section. COMPREHENSIVE STAT 08/28/2017 5:32 PM Results for this METABOLIC PANEL CDT procedure ar e in the results section. ETHYL ALCOHOL LEVEL STAT 08/28/2017 5:32 PM Re sults for this CDT procedure are i n the results section. ACETAMINOPHEN LEVEL STAT 08/28/2017 5:32 PM Re sults for this CDT procedure are i n the results section. documented in this encounter Results Drug abuse screen 77 urine (FL, RH, SH) (08/28/2017 7:59 PM CDT) [facility] Method Time Signature Amphetamine Qual Negative NEG^Negati 08/28/2017 [facility] Urine ve 8:24 PM CDT [facility] Comment: Cutoff for a negative amphetami ne is 500 ng/mL or less. Barbiturates Qual Negative NEG^Negative 08/28/2017 8:24 PM [facility]: Cutoff for a negative barbitura te is 200 ng/mL or less. Benzodiazepine Qual Negative NEG^Negative 08/28/2017 8:24 P M [facility] Urine T [facility]OSPITAL Comment: Cutoff for a negative benzodiaz epine is 200 ng/mL or less. Cannabinoids Qual Negative NEG^Negative 08/28/2017 8:24 PM [facility] Urine T HOSPITAL Comment: Cutoff for a negative cannabino id is 50 ng/mL or less. Cocaine Qual Urine Negative NEG^Negative 08/28/2017 8:24 PM [facility] Comment: Cutoff for a negative cocaine i s 300 ng/mL or less. Opiates Qualitative Negative NEG^Negative 08/28/2017 8:24 P M [facility] Urine T HOSPITAL Comment: Cutoff for a negative opiate is 300 ng/mL or less. PCP Qual Urine Negative NEG^Negative 08/28/2017 8:24 PM CDT [facility] Comment: Cutoff for a negative PCP is 25 ng/mL or less. Specimen Anatomical Collection Method Collection Time Receive d Time (Source) Location / / Volume Laterality Urine specimen URINE SPECIMEN / 08/28/2017 7:59 PM 05/2017 8:05 (specimen) Unknown CDT PM CDT Aurora Bishop MD LAB - URINE ORDERABLES Performing Organization Address City/State/ZIP Code Phon e Number [place] [address] [address] [place] [address] [facility] [address] [phone] CT Head w/o & w Contrast (08/28/2017 7:43 PM CDT) Anatomical Region Laterality Modality Head, SUBRAD CT NEURO, SUBRAD CT NEURO, UMP CT NEURO, Computed Tomography RAD CT Specimen (Source) Anatomical Location Collection Method / Collectio n Time Received Time / Laterality Volume Impressions 08/28/2017 7:55 PM CDT IMPRESSION: Normal CT scan of the head. ??No enhancing lesions are identified. PRIETO FRY MD Narrative 08/28/2017 7:[address] SCAN OF THE HEAD WITHOUT AND WITH CONTRAST ?? 08/28/2017 7:43 PM HISTORY: mood and vision changes eval ma lignancy; TECHNIQUE: ??Axial images of the head an d coronal reformations without and with 50mL Isovue-370. Radiation dose for this scan was reduced using automated exposure control, adjust ment of the mA and/or kV according to patient size, or iterative reconstruction technique. COMPARISON: None. FINDINGS: ??The ventricles are normal in size, shape and configuration. The brain parenchyma and subarachnoid s paces are normal. There is no evidence of intracranial hemorrhage, mas s, acute infarct or anomaly. There are no contrast enhancing lesions. The visualized portions of the sinuses a nd mastoids appear normal. There is no evidence of trauma. Scans th rough the orbits are negative. Procedure Note Pedro Luis Fry MD - 08/28/2017For matting of this note might be different from the original. CT SCAN OF THE HEAD WITHOUT AND WITH CON TRAST 08/28/2017 7:43 PM HISTORY: mood and vision changes eval ma lignancy; TECHNIQUE: Axial images of the head and coronal reformations without and with 50mL Isovue-370. Radiation dose for this scan was reduced using automated exposure control, adjust ment of the mA and/or kV according to patient size, or iterative reconstruction technique. COMPARISON: None. FINDINGS: The ventricles are normal in s ize, shape and configuration. The brain parenchyma and subarachnoid s paces are normal. There is no evidence of intracranial hemorrhage, mas s, acute infarct or anomaly. There are no contrast enhancing lesions. The visualized portions of the sinuses a nd mastoids appear normal. There is no evidence of trauma. Scans th rough the orbits are negative. IMPRESSION: Normal CT scan of the head. No enhancing lesions are identified. PRIETO FRY MD Aurora Bishop MD IMG CT ORDERABLES EKG 12-lead, tracing only (08/28/2017 6:05 PM CDT) [facility] Method Time Signature Interpretation ECG Click View RADIOLOGY Image link RESULTS to view waveform and result Specimen (Source) Anatomical Collection Method Collection Time Re ceived Time Location / / Volume Laterality 08/28/2017 6:05 PM CDT Aurora Bishop MD ECG ORDERABLES Performing Organization Address City/State/ZIP Code Phon e Number RADIOLOGY RESULTS Troponin I (08/28/2017 5:32 PM CDT) athologist Signature Troponin I ES <0.015 0.000 - 08/28/2017 [facility] 0.045 ug/L 8:23 PM [facility] Comment: The 99th percentile for upper reference range is 0.045 ug/L. ??Troponin values in the range of 0.045 - 0.120 ug/L may b e associated with risks of adverse clinical events. Specimen Anatomical Collection Method Collection Time Receive d Time (Source) Location / / Volume Laterality 08/28/2017 5:32 PM 8 5:33 CDT PM CDT Aurora Bishop MD LAB - BLOOD ORDERABLES Performing Organization Address City/[facility] Phon e Number M [facility] [address] [place], [place] [address] [facility] [address] [place], [place] [address] [facility] [phone] Acetaminophen level (08/28/2017 5:32 PM CDT) Analysis Performed At Patho logist Time Signature Acetaminophen <2 mg/L 08/28/2017 [facility] Level 6:08 PM [facility] Comment: Therapeutic range: 10-20 mg/L Specimen Anatomical Collection Method Collection Time Receive d Time (Source) Location / / Volume Laterality Blood specimen 08/28/2017 5:32 PM 018 5:33 (specimen) CDT PM CDT Aurora Bishop MD LAB - BLOOD ORDERABLES Performing Organization Address [facility]/ZIP Code Phon e Number M [facility] [address] [place] [address] [facility] [address] [place] [address], U [phone] (ABNORMAL) Alcohol ethyl (08/28/2017 5:32 PM CDT) P athologist Signature Ethanol g/dL 0.16 (H) <0.01 g/dL 08/28/2017 [facility] 6:12 PM [facility] Specimen Anatomical Collection Method Collection Time Receive d Time (Source) Location / / Volume Laterality Blood specimen 08/28/2017 5:32 PM 04/01/2 018 5:33 (specimen) CDT PM CDT Aurora Bishop MD LAB - BLOOD ORDERABLES Performing Organization Address City/State/ZIP Code Phon e Number M [facility] [address] [place], [place] [address] [facility] [address] [place], [place] [address] [facility] [phone] CBC with platelets differential (08/28/2017 5:32 PM CDT) [facility] gist Method Time Signature WBC 6.7 4.0 - 08/28/2017 [facility] 11.0 5:38 PM [facility] 10e9/L [facility] RBC Count 5.12 4.4 - 5.9 08/28/2017 [facility] 10e12/L 5:38 PM [facility] Hemoglobin 15.3 13.3 - 08/28/2017 [facility] 17.7 g/dL 5:38 PM [facility] Hematocrit 45.0 40.0 - 08/28/2017 [facility] 53.0 % 5:38 PM [facility] MCV 88 78 - 100 08/28/2017 [facility] fl 5:38 PM [facility] MCH 29.9 26.5 - 08/28/2017 [facility] 33.0 pg 5:38 PM [facility] MCHC 34.0 31.5 - 08/28/2017 [facility] 36.5 g/dL 5:38 PM [facility] RDW 12.5 10.0 - 08/28/2017 [facility] 15.0 % 5:38 PM [facility] Platelet Count 227 150 - 450 08/28/2017 [facility] 10e9/L 5:38 PM [facility] Diff Method Automated 08/28/2017 [facility] Method 5:38 PM [facility] % Neutrophils 55.3 % 08/28/2017 [facility] 5:38 PM [facility] % Lymphocytes 31.5 % 08/28/2017 [facility] 5:38 PM [facility] % Monocytes 8.8 % 08/28/2017 [facility] 5:38 PM [facility] % Eosinophils 2.2 % 08/28/2017 [facility] 5:38 PM [facility] % Basophils 1.3 % 08/28/2017 [facility] 5:38 PM [facility] % Immature 0.9 % 08/28/2017 [facility] Granulocytes 5:38 PM [facility] Nucleated RBCs 0 0 /100 08/28/2017 [facility] 5:38 PM [facility] Absolute 3.7 1.6 - 8.3 08/28/2017 [facility] Neutrophil 10e9/L 5:38 PM [facility] Absolute 2.1 0.8 - 5.3 08/28/2017 [facility] Lymphocytes 10e9/L 5:38 PM [facility] Absolute 0.6 0.0 - 1.3 08/28/2017 [facility] Monocytes 10e9/L 5:38 PM [facility] Absolute 0.2 0.0 - 0.7 08/28/2017 [facility] Eosinophils 10e9/L 5:38 PM [facility] Absolute 0.1 0.0 - 0.2 08/28/2017 [facility] Basophils 10e9/L 5:38 PM [facility] Abs Immature 0.1 0 - 0.4 08/28/2017 [facility] Granulocytes 10e9/L 5:38 PM [facility] Absolute 0.0 08/28/2017 [facility] Nucleated RBC 5:38 PM [facility] Specimen Anatomical Collection Method Collection Time Receive d Time (Source) Location / / Volume Laterality Blood specimen 08/28/2017 5:32 PM 018 5:33 (specimen) CDT PM CDT Aurora Bishop MD LAB - BLOOD ORDERABLES Performing Organization Address City/State/ZIP Code Phon e Number M [facility] [address] [place] [address] [facility] [address] [phone] (ABNORMAL) Comprehensive metabolic panel (08/28/2017 5:32 PM CDT) P athologist Signature Sodium 141 133 - 144 08/28/2017 [facility] mmol/L 6:12 PM [facility] Potassium 3.9 3.4 - 5.3 08/28/2017 [facility] mmol/L 6:12 PM [facility] Chloride 108 94 - 109 08/28/2017 [facility] mmol/L 6:12 PM [facility] Carbon Dioxide 25 20 - 32 08/28/2017 [facility] mmol/L 6:12 PM [facility] Anion Gap 8 3 - 14 08/28/2017 [facility] mmol/L 6:12 PM [facility] Glucose 104 (H) 70 - 99 08/28/2017 [facility] mg/dL 6:12 PM [facility] Urea Nitrogen 12 7 - 30 08/28/2017 [facility] mg/dL 6:12 PM [facility] Creatinine 1.00 0.66 - 08/28/2017 [facility] 1.25 mg/dL 6:12 PM [facility] GFR Estimate 77 >60 08/28/2017 [facility] mL/min/1.7 6:[address] Comment: Non GFR Calc GFR Estimate If >90 >60 mL/min/1.7m2 08/28/2017 6:12 P M [facility] Comment: GFR Calc Calcium 8.3 (L) 8.5 - 10.1 08/28/2017 6:12 PM [facility] mg/dL [facility] Bilirubin Total 0.2 0.2 - 1.3 mg/dL 08/28/2017 6:12 PM [facility] Albumin 4.2 3.4 - 5.0 g/dL 08/28/2017 6:12 PM [facility] Protein Total 7.5 6.8 - 8.8 g/dL 08/28/2017 6:12 PM [facility] Alkaline Phosphatase 74 40 - 150 U/L 08/28/2017 6:12 PM [facility] ALT 29 0 - 70 U/L 08/28/2017 6:12 PM [facility] AST 21 0 - 45 U/L 08/28/2017 6:12 PM [facility] Specimen Anatomical Collection Method Collection Time Receive d Time (Source) Location / / Volume Laterality Blood specimen 08/28/2017 5:32 PM 018 5:33 (specimen) [facility] LAB - BLOOD ORDERABLES Performing Organization Address City/State/ZIP Code Phon e Number [place] [facility] [address] [place], [place] [address] [facility] [address] [place], [place] [address], [facility] [phone] Lipase (08/28/2017 5:32 PM CDT) athologist Signature Lipase 186 73 - 393 08/28/2017 [facility] U/L 6:12 PM CDT HOSPITAL Specimen Anatomical Collection Method Collection Time Receive d Time (Source) Location / / Volume Laterality Blood specimen 08/28/2017 5:32 PM 018 5:33 (specimen) CDT PM CDT Aurora Bishop MD LAB - BLOOD ORDERABLES Performing Organization Address City/[facility] Phon e Mitra [facility] [address] [place], [place] [address] [facility] [address] [place], [place] [address], [facility] [phone] Salicylate level (08/28/2017 5:32 PM CDT) athologist Signature Salicylate <2 mg/dL 08/28/2017 [facility] 6:04 PM T [facility] Comment: Therapeutic: ?<20 Anti inflammatory: ??15-30 Specimen Anatomical Collection Method Collection Time Receive d Time (Source) Location / / Volume Laterality Blood specimen 08/28/2017 5:32 PM 018 5:33 (specimen) CDT PM CDT Aurora Bishop MD LAB - BLOOD ORDERABLES Performing Organization Address City/State/ZIP Code Phon e Number [place] [facility] [address] [place], [place] [address] [facility] [address] [place], [place] [address], [facility] [phone] TSH with free T4 reflex (08/28/2017 5:32 PM CDT) athologist Signature TSH 1.44 0.40 - 4.00 08/28/2017 [facility] mU/L 6:18 PM CDT HOSPITAL Specimen Anatomical Collection Method Collection Time Receive d Time (Source) Location / / Volume Laterality Blood specimen 08/28/2017 5:32 PM 018 5:33 (specimen) CDT PM CDT Aurora Bishop MD LAB - BLOOD ORDERABLES Performing Organization Address City/State/ZIP Code Phon e Number [place] [address] [address] [place], [place] [address] [phone] [facility] [address] [place], [place] [address] [place] [address] documented in this encounter Visit Diagnoses Diagnosis Suicidal ideation documented in this encounter Administered Medications Inactive Administered Medications - up to 3 most recent administrations Medication Order MAR Action Action Date Dose Rate Site 0.9% sodium chloride BOLUS New Bag 08/28/2017 7:33 PM CDT 36 mLs Intravenous, 1,000 mL, ONCE, On 08/28/17 at 1931, For 1 dose iopamidol (ISOVUE-370) solution 500 mL Given 08/28/2017 7:33 PM CDT 50 mLs 500 mL, Intravenous, ONCE, On 08/28/17 at 1931, For 1 dose documented in this encounter Active and Recently Administered Medications Times are shown in CDT. Scheduled Medication Order 08/27/2017 08/28/2017 08/29/2017 0.9% sodium chloride BOLUS (COMPLETED) 1 933 (New Bag - Provider: Gloria Miller - Comment: bulk)1933 (Stopped - Provider: Gloria Miller) Intravenous, 1,000 mL, ONCE, 08/28/17 at 1931, For 1 dose iopamidol (ISOVUE-370) solution 500 mL (COMPLETED) 1932 (Given - Provider: Gloria Miller - Comment: bulk) 500 mL, Intravenous, ONCE, 08/28/17 at 1931, For 1 dose documented in this encounter Care Teams Athletic Coordinator Relationship Specialty Start Date End Date No Ref-Primary, Physician PCP - General 08/28/17 documented as of this encounter
--- OUTSIDE RECORDS SUMMARY | 2022-02-16 09:49 | XMS_ITS ---
:1960 Author Care Team Providers Name Role Phone FRANKY TELLEZ MD Primary Care Provider [phone] Allergies Code Code System Name Reaction Severity Status Onset NKDA ? Medications Name Status Start Date Stop Date ? ? acyclovir 400 mg tablet Active ? Not avai lable TAKE ONE TABLET BY MOUTH TWICE DAILY albuterol sulfate HFA 90 mcg/actuation aerosol inhaler Completed ? 08/04/2021 atorvastatin 10 mg tablet Completed ? 2019 azithromycin 250 mg tablet Completed ? 01/03 cefdinir 300 mg capsule Completed ? 01/04/20 20 fluticasone propionate 50 mcg/actuation nasal Completed ? 08/04/2021 spray,suspension Fluzone Quad 60 mcg (15 mcg x 4)/0.5 mL Active ? Not available intramuscular susp. ibuprofen Active ? Not available prn lansoprazole 30 mg capsule,delayed release Completed ? 01/04/2020 oxycodone-acetaminophen 5 mg-325 mg tablet Completed ? 08/04/2021 take 1-2 tablets by mouth every 4 hours as needed prednisone 20 mg tablet Completed ? 01/04/20 20 PreserVision AREDS-2 Active ? Not availab le tadalafil 5 mg tablet Active ? Not availa ble TAKE ONE TABLET BY MOUTH EVERY DAY NEED APPOINTMENT triamcinolone acetonide 0.1 % topical cream Completed ? 08/04/2021 Problems Name Status Onset Date Source ? Raised Prostate Specific Antigen Active 07/03/2015 History Erectile Dysfunction Co-occurrent and Due to Arterial Active 07/14/2015 History Insufficiency Procedures Date Name Performed by ? 11/28/2011 Colonoscopy Thru [facility] Spx Information n ot available Notes: 11/28/2011 - COLONOSCOPY THRU S ELVA SPX 06/11/2010 Biopsy of Prostate Information not avai lable Notes: 06/11/2010 - BIOPSY OF PROSTATE 06/11/2010 N Block Other Peripheral Information not available Notes: 06/11/2010 - N BLOCK OTHER TANYA PHERAL 05/13/2010 Routine Venipuncture Information not sona ilable Notes: 05/13/2010 - ROUTINE VENIPUNCTU RE 04/20/2010 Routine Venipuncture Information not sona ilable Notes: 04/20/2010 - ROUTINE VENIPUNCTU RE Results Lab Results Date Name Specimen Result Interpretation Description Value Range Status Address ? 08/26/2021 Testosterone, BLDV ? Testosterone 327.76 175.00 -781.00 Final [place] Total, Serum NG/dL NG/dL [facility]: [address] [place] [address] [address], [place] 08/19/2021 Testosterone, BLDV ? Testosterone 335.49 175.00 -781.00 Final [place] Total, Serum NG/dL NG/dL [facility]: [address] [facility] [address], [place] 07/08/2021 PSA, Total, ? No ? ? ? 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 [place]: [address] [place] [address] Past Encounters 08/26/2021 Male Hypogonadism Waldemar Esparza MD: [address] [place] [phone], Ph. 08/19/2021 Hypogonadism Waldemar Esparza MD: [address] [place] [phone], Ph. 08/04/2021 Raised Prostate Specific Antigen; Male H ypogonadism Waldemar Esparza MD: [address] [place] [phone], Ph. Social History Tobacco Smoking Status Never Smoker Vaccine List Vaccine Type COVID-19 (SARS-COV-2) vaccine, unspecifi ed 09/12/2020 Plan of Care Reminders Provider Appointments None recorded. ? ? Lab None recorded. ? ? Referral None recorded. ? ? Procedures None recorded. ? ? Surgeries None recorded. ? ? Imaging None recorded. ? ? Vitals 08/04/2021 02:30PM ESTABLISHED 15 Height Weight BMI 5 ft 6 in 235 lbs 37.9 kg/m2 01/04/2020 09:40AM ESTABLISHED 10 Height Weight BMI 6 ft 196 lbs 26.6 kg/m2
--- OUTSIDE RECORDS SUMMARY | 2022-02-16 09:49 | XMS_ITS | Encounter Summary ---
:1960 Author Organization [facility] Address [address] [place] [phone] Care Team Providers Name Role Phone None, Bfp Primary Care Provider Unavailable Encounter Details Date Type Department Care Team Description 03/19/2003 Historic Results [facility] Heart Unknown, [address] [place] [phone] Social History Tobacco Use Types Packs/Day Years Used Date Never Assessed Sex Assigned at Date Recorded Not on file documented as of this encounter Plan of Treatment Not on filedocumented as of this encounter Procedures Procedure Name Priority Date/Time Associated Diagnosis Comme nts ECHO CARDIAC - HIM SCAN 03/19/2003 12:00 AM CDT - [facility] documented in this encounter Results ECHO CARDIAC - HIM SCAN - [facility]CH[facility] (03/19/2003 12:00 AM CDT) Specimen (Source) Anatomical Location Collection Method / Collectio n Time Received Time / Laterality Volume 03/19/2003 Narrative This result has an attachment that is no t available. Provider Scan CV ECHO ORDERABLES documented in this encounter Visit Diagnoses Not on filedocumented in this encounter Care Teams Display Coordinator Relationship Specialty Start Date End Date None, Bfp PCP - General 06/12/99 01/27/17 documented as of this encounter
--- OUTSIDE RECORDS SUMMARY | 2022-02-16 09:49 | XMS_ITS | Encounter Summary ---
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 times per year in which he was binge drinking this past weekend. 3. Illicit drugs: None. 4. Lives in a house with his and stepdaughter. FAMILY HISTORY: Mother with cerebrovascular accident, diabetes mellitus. ALLERGIES: NO KNOWN DRUG ALLERGIES. MEDICATIONS: Reviewed, not on any medications prior to admission. Prior to Admission medications Not on File REVIEW OF SYSTEMS: A 10-point review of systems was completed. All pertinent positives as noted in the HPI and all other systems negative. PHYSICAL EXAMINATION: VITAL SIGNS: Reviewed and are as follows: Temperature 98.6, blood pressure 115/57, heart rate 53, respiratory rate 16, O2 sats 95% on room air. CONSTITUTIONAL: The patient initially was sitting in the cafeteria eating his breakfast and ambulated back to his room without difficulty, sitting on a chair during interview. Pleasant, awake, alert, cooperative, in no apparent distress and appears stated age. HEENT: Pupils equal, round and reactive to light. Extraocular muscles intact. Sclerae are clear. Normocephalic, atraumatic. Oropharynx with moist mucous membranes. NECK: Supple, no adenopathy. Normal range of motion, no nuchal rigidity noted. LUNGS: No increased work of breathing. Clear to auscultation bilaterally posteriorly. No crackles orwheezing. CARDIOVASCULAR: Normal apical pulse, regular rate and rhythm with a noted one time irregularity, times one beat. Normal S1 and S2. No murmur, rub or gallop noted. ABDOMEN: Normal bowel sounds, soft, nondistended, nontender. No masses palpated. No guarding, no rebound, tenderness noted. EXTREMITIES: Moves all 4 extremities. Dorsalis pedis and radial pulses palpable bilaterally. Lower extremities with no edema. NEUROLOGIC: Awake, alert, oriented. Cranial nerves II-XII are grossly intact. Sensory is intact. Speech fluent. SKIN: Warm and dry. No lesions, rash noted. No erythema. PSYCHIATRIC: Mentation appears normal and affect. LABORATORY DATA: Revealed in Epic. ASSESSMENT AND PLAN: Mr. Esdras Myers is a 56-year-old man with no significant past medical history, who presented on 08/28/2017 with worsening depression associated with suicidal ideation. The patient has been admitted to psychiatry for further evaluation and management. Major depressive disorder, single episode. Suicidal ideation without plan. Alcohol use, recent binge drinking. -The above diagnosis to be managed per primary service Psychiatry. -The patient not on any medications for above diagnoses, was deferred to primary service. -No signs/symptoms of alcohol withdrawal. We will continue to monitor at this time. Pain Assessment. Esdras???s pain level was assessed and he currently denies pain. Obesity, BMI 32.50. -Encourage the patient follow up with PCP as an outpatient for further weight management. Deep vein thrombosis prophylaxis. -Low venous thromboembolism risk, encourage ambulation and out of bed daily while awake. CODE STATUS: Full code. DISPOSITION: Per primary service. This patient was discussed with Dr. Derrick Vasquez of the hospitalist service who agrees with the current plan as outlined above. The hospitalist service will sign off at this time. Should any questions, concerns or comments arise, please do not hesitate to call. DERRICK VASQUEZ DO As dictated by NEGRO SUN NP MT: [place] Name: ESDRAS MYERS Account: [id number] : 1960 Admitted: 08/29/2017 Document: [id number] Associated attestation - Derrick Vasquez DO - 08/29/2017 3:57 PM CDT Physician Attestation IDerrick, have reviewed and discussed with the advanced practice provider their history,physical and plan for Esdras Myers. I did not participate in a shared visit by interviewing or examining the patient and this should be billed as an advanced practice provider only visit. Derrick Vasquez Date of Service (when I saw the patient): I did not personally see this patient today. documented in this encounter Miscellaneous Notes Plan of Care - Sunni Gallardo RN - 08/29/2017 11:03 PM CDT Problem: Depressive Symptoms Goal: Depressive Symptoms Signs and symptoms of listed problems will be absent or manageable. 1. Mood stability 2. Absence of suicidal ideation/contracts for safety 3. Depressive s/sx resolved 4. Safety plan in place 5. Positive coping skills identified/utilized 6. Medication regiment established/compliance 7. Adequate sleep 8. Housing community support 9. F/u plan in place Outcome: Improving Pt visible in lounge this shift, pleasant and cooperative. Visited with his and 2 of her children. Appeared to go well. During 1:1 Pt said his is having difficulty accepting the fact Pt is depressed at times because her sister committed suicide. Pt claims the was stressful with a few of her children not being as friendly/social as they could have been. Pt claims he has alwayswanted his family to be better than his dysfunctional family of origin. Pt is trying to disengage from this perfect family illusion & accept his kids and step kids each have their own personalities he will have to strive to understand. No etoh withdrawal signs or symptoms noticed this shift. Contracts for safety. Plan of Care - Didier Reeves - 08/29/2017 1:21 PM CDT Problem: General Plan of Care (Inpatient Behavioral) Goal: Team Discussion Team Plan: Outcome: Improving BEHAVIORAL TEAM DISCUSSION Participants: Dr. Christian, Case management, Nursing staff, Psych associates Progress: patient presents with a more full range affect. He was visible and social on the unit. Patient was started on 5 mg Trintellix. Possible discharge tomorrow with follow up with [facility] health. Continued Stay Criteria/Rationale: Patient improving but needs further stabilization. Medical/Physical: n/a Precautions: Behavioral Orders Procedures ??? Code 1 - Restrict to Unit ??? Routine Programming As clinically indicated ??? Status 15 Every 15 minutes. Plan: Patient needs further stabilization. Rationale for change in precautions or plan: Patient improving with possible discharge tomorrow. Problem: Patient Care Overview Goal: Team Discussion Team Plan: Outcome: Improving BEHAVIORAL TEAM DISCUSSION Participants: Dr. Christian, Case management, Nursing staff, Psych associates Progress: patient presents with a more full range affect. He was visible and social on the unit. Patient was started on 5 mg Trintellix. Possible discharge tomorrow with follow up with [facility] health. Continued Stay Criteria/Rationale: Patient improving but needs further stabilization. Medical/Physical: n/a Precautions: Behavioral Orders Procedures ??? Code 1 - Restrict to Unit ??? Routine Programming As clinically indicated ??? Status 15 Every 15 minutes. Plan: Patient needs further stabilization. Rationale for change in precautions or plan: Patient improving with possible discharge tomorrow. documented in this encounter Plan of Treatment Not on filedocumented as of this encounter Visit Diagnoses Diagnosis MDD (major depressive disorder), single episode, severe (H) - Primary Major depressive disorder, single episod e, severe, without mention of psychotic behavior Depression Depressive disorder, not elsewhere class ified documented in this encounter Administered Medications Inactive Administered Medications - up to 3 most recent administrations Medication Order MAR Action Action Date Dose Rate Site hydrOXYzine (ATARAX) tablet 25-50 mg 25-50 mg, Oral, EVERY 4 HOURS PRN, anxiety, Starting o n Tue08/29/17 at 0129 vortioxetine (TRINTELLIX/BRINTELLIX) tablet 5 Given 08/31/19 18 8:03 AM CDT 5 mg mg 5 mg, Oral, DAILY, First dose on Tue08/29/17 at 1300 Given 08/29/2017 3:17 PM CDT 5 mg documented in this encounter Active and Recently Administered Medications Times are shown in CDT. Scheduled Medication Order 08/28/2017 08/29/2017 08/30/2017 vortioxetine (TRINTELLIX/BRINTELLIX) tablet 5 mg 1517 (Given - Provider: Suzanne Shore RN) 0803 (Given - Provider: Yesi Rees) 5 mg, Oral, DAILY, First dose on Tue08/29/17 at 1300 PRN Medication Order 08/28/2017 08/29/2017 08/30/2017 hydrOXYzine (ATARAX) tablet 25-50 mg 25-50 mg, Oral, EVERY 4 HOURS PRN, anxiety, Starting Tue08/29/17 at 0129 documented in this encounter Care Teams Supervisor Pumping Relationship Specialty Start Date End Date No Ref-Primary, Physician PCP - General 08/28/17 documented as of this encounter
--- OUTSIDE RECORDS SUMMARY | 2022-02-16 09:49 | XMS_ITS | Encounter Summary ---
:1960 Author Organization [facility] Address [address] [place] [id number] Care Team Providers Name Role Phone None, Bfp Primary Care Provider Unavailable Encounter Details Date Type Department Care Team Description 08/01/2008 Historic Results INTERFACED REPORT Admit, Unknown Social History Tobacco Use Types Packs/Day Years Used Date Never Assessed Sex Assigned at Date Recorded Not on file documented as of this encounter Plan of Treatment Not on filedocumented as of this encounter Procedures Procedure Name Priority Date/Time Associated Diagnosis Comme nts TROPONIN I Routine 08/01/2008 12:05 PM Results for this BATCH ROOM TECHNICIAN procedure are i n the results section . documented in this encounter Results Troponin I (08/01/2008 12:05 PM BATCH ROOM TECHNICIAN) P athologist Signature Troponin I ES <0.012 0.000 - MISYS 0.034 ug/L Specimen Anatomical Collection Method Collection Time Receive d Time (Source) Location / / Volume Laterality 08/01/2008 12:05 08/01/2008 PM BATCH ROOM TECHNICIAN 12:05 PM BATCH ROOM TECHNICIAN Unknown Admit LAB - BLOOD ORDERABLES Performing Organization Address City/State/ZIP Code Phon e Number MISYS documented in this encounter Visit Diagnoses Not on filedocumented in this encounter Care Teams Offset Plate Maker Relationship Specialty Start Date End Date None, Bfp PCP - General 06/12/99 01/27/17 documented as of this encounter
--- OUTSIDE RECORDS SUMMARY | 2022-02-16 09:49 | XMS_ITS | Clinical Summary ---
:1960 Author Organization [facility] [place] [address] Care Team Providers Name Role Phone Chelly Antonio MD Primary Care Provider [phone] Allergies No known active allergies Medications Medication Sig Dispensed Refills Start Date End Date Status acyclovir (ZOVIRAX) 800 400 mg (1/2 tab) 30 tablet 3 5 Active mg tabletIndications: BID Genital herpes Active Problems Problem Noted Date Hypertriglyceridemia 07/20/2014 IGT (impaired glucose tolerance) 07/20/2014 Immunizations Name Administration Dates Next Due Td, Preservative Free (age >= 7 Years) 07/19/2014 Tdap 06/29/2004 Family History Medical History Relation Name Comments Good Health Brother Asthma Daughter 1 Asthma Daughter 2 Good Health Father Diabetes Mother diabetes inspidi us Other Mother pituitary dysfun ction Good Health Sister Psychiatric illness Son ADD Relation Name Status Comments Brother Alive Daughter 1 Alive Daughter 2 Alive Father Alive Mother Alive Sister Alive Son Alive Social History Tobacco Use Types Packs/Day Years Used Date Never Smoker Smokeless Tobacco: Never Used Alcohol Use Standard Drinks/Week Comments Yes 0 (1 standard drink = 0.6 oz pure alcoho l) Sex Assigned at Date Recorded Not on file Obstetrics History Last Filed Vital Signs Vital Sign Reading Time Taken Comments Blood Pressure 122/72 07/19/2014 11:42 AM TRIAL MANAGER Pulse 56 07/19/2014 11:42 AM TRIAL MANAGER Temperature 36.4 ??C (97.6 ??F) 08/07/2013 12:39 PM CDT Respiratory Rate - - Oxygen Saturation - - Inhaled Oxygen Concentration - - Weight 112.5 kg (248 lb) 07/19/2014 11:42 AM TRIAL MANAGER Height 182.9 cm (6') 08/07/2013 12:39 PM CDT Body Mass Index 33.63 08/07/2013 12:39 PM CDT Plan of Treatment Health Maintenance Due Date Last Done Comments COVID-19 vaccine series (#1) [birth year]08/1961 Depression screening for age 12+ 1972 BMI (ht and wt on same day) for age 0611/06/1978 18+ Hepatitis C screening for age 18-79 1978 Zoster (shingles) series for age 0611/06/2010 50+ (1 of 2) Colonoscopy through age 75 06/27/2018 06/27/2008 (Completed outside of [facility]) Lipids for age 45-75 07/19/2019 07/19/2014, 03/25/2010 Influenza for age 50-64 01/28/2022 Tetanus booster 07/19/2024 07/19/2014, 06/29/2004 Tdap Completed 06/29/2004 Results Not on filefrom Last 3 Months Insurance Payer Benefit Plan / Subscriber ID Effective Dates Phone Addre ss Type Group [employer] [place] [id number] 2013-Present [address] [address] [place] [id number] (Home) W [phone] [place]UZ (Work) [phone] Care Teams Reordering Clerk Relationship Specialty Start Date End Date Chelly Antonio MD PCP - General 03/24/10
--- OUTSIDE RECORDS SUMMARY | 2022-02-16 09:49 | XMS_ITS | Encounter Summary ---
:1960 Author Organization [facility] Address [address] [place] [id number] Care Team Providers Name Role Phone No Ref-Primary, Physician Primary Care Provider [phone] Reason for Visit Reason Comments Abdominal Pain Auth/Cert Specialty Diagnoses / Procedures Referred By Contact Refer red To Contact Diagnoses SBO (small bowel obstruction) (H) Non-intractable vomiting with nausea, unspecified vomiting type SBO (small bowel obstruction) [facility] [address] [place], [place] [address] Phone: Fax: Referral ID Status Reason Start Date Expiration Date Visits Requ ested Visits Authorized [id number] 1 1 Encounter Details Date Type Department Care Team Description 11/30/2017 - [facility] Irving Leonardo MD [facility] [address] [place], [place] [id number] SBO (small bowel obstruction); 12/02/2017 Encounter [facility] Pat Sheldon MD [address] [place], [place] [id number] Non-intractable vomiting with nausea, un specified vomiting type Surgical [address] [place] [address] Social History Tobacco Use Types Packs/Day Years Used Date Never Smoker Smokeless Tobacco: Never Used Alcohol Use Standard Drinks/Week Comments No 0 (1 standard drink = 0.6 oz pure alcoho l) Sex Assigned at Date Recorded Not on file documented as of this encounter Last Filed Vital Signs Vital Sign Reading Time Taken Comments Blood Pressure 138/70 12/02/2017 8:27 AM CDT Pulse 47 11/30/2017 5:18 AM CDT Temperature 36.3 ??C (97.4 ??F) 12/02/2017 8:27 AM CDT Respiratory Rate 16 12/02/2017 8:27 AM CDT Oxygen Saturation 97% 12/02/2017 8:27 AM CDT Inhaled Oxygen Concentration - - Weight 108.6 kg (239 lb 6.4 oz) 11/30/2017 9:13 AM CDT Height 182.9 cm (6' 0.01) 11/30/2017 9:13 AM CDT Body Mass Index 32.46 11/30/2017 9:13 AM CDT documented in this encounter Discharge Summaries Adalid Cavazos MD - 12/02/2017 12:45 PM CDT [facility] Discharge Summary Esdras Myers Age: [age] year old Date of : 1960 Date of Admission: 11/30/2017 Date of Discharge:: 12/02/2017 Admitting Physician: Pat Sheldon MD Discharge Physician: Adalid Cavazos MD Home clinic: Not established Admission Diagnoses: SBO (small bowel obstruction) [K56.609] Non-intractable vomiting with nausea, unspecified vomiting type [R11.2] Discharge Diagnosis: Principal Problem: SBO (small bowel obstruction) Active Problems: Non-intractable vomiting with nausea, unspecified vomiting type Procedures: CT Abd/Pelvis US Abdomen Medications Prior to Admission: Prescriptions Prior to Admission Medication Sig Dispense Refill Last Dose ??? BUPROPION HCL ER, XL, PO Take 150 mg by mouth daily Past Week at Unknown time ??? IBUPROFEN PO Take by mouth as needed for moderate pain ??? multivitamin (OCUVITE) TABS tablet Take 1 tablet by mouth 2 times daily Past Week at Unknown time Discharge Medications: Current Discharge Medication List CONTINUE these medications which have NOT CHANGED Details BUPROPION HCL ER, XL, PO Take 150 mg by mouth daily IBUPROFEN PO Take by mouth as needed for moderate pain multivitamin (OCUVITE) TABS tablet Take 1 tablet by mouth 2 times daily Consultations: Consultation during this admission received from surgery Hospital Course: Esdras Myers is a 57 year old male came to attention on 11/30/2017 with abdominal pain, vomiting and constipation. In the ED, he was found to have a small bowel obstruction and an NG was placed withmarked improvement in his comfort. Mr. Myers was admitted to medical bed and appeared to be remarkably comfortable. It was acknowledged that the patient has never had prior abdominal surgery that would put him at risk for adhesions and so general surgery was consulted. Fortunately he continued to improve with conservative measures but the question of exactly why he ran into obstructive symptoms is not clear. The patient did not report a recent history of diarrhea or fever. He had however changed his diet toincrease his raw vegetable intake. It was suspected that possibly the change in diet may have been atrigger for the obstructive issue. He any case determined that the patient needs further evaluation for possible bowel obstruction that is both unusual and unexpected in the mid small intestine. Although the patient describes some diarrhea, it appears that the frequency of this is decreasing. He is tolerating a low residue diet at the time of discharge. BP 138/70 (BP Location: Right arm) Pulse (!) 47 Temp 97.4 ??F (36.3 ??C) (Oral) Resp 16 Ht 1.829 m (6' 0.01) Wt 108.6 kg (239 lb 6.4 oz) SpO2 97% BMI 32.46 kg/m2 At the time of discharge Mr. Myers is alert, comfortable and in no apparent distress. HEENT: Nonfocal. Chest: Clear to auscultation. Work of breathing is normal in room air. Heart: Regular rate and rhythm without rubs, murmurs or gallops. Abdomen: Bowel sounds are normal and active. No remarkable tenderness noted. Discharge Instructions and Follow-Up: Discharge diet: Low residue Discharge activity: Activity as tolerated Discharge follow-up: In 4-6 weeks with general surgery after CT enterography. Discharge Disposition: Discharged to home Attestation: I have reviewed today's vital signs, notes, medications, labs and imaging. Total time: 25 minutes Adalid Cavazos MD documented in this encounter Discharge Instructions Discharge InstructionsMadeline Guzman RN - 12/02/2017 12:44 PM CDT HOME CARE FOLLOWING BOWEL OBSTRUCTION ADMISSION Salud Bridges, Konstantin Chairez, R. O???Camron ACTIVITY: Light Activity -- you may immediately be up and about as tolerated. Driving -- you may drive when comfortable and off narcotic pain medications. Light Work -- resume when comfortable off pain medications. (If you can drive, you probably can work.) Strenuous Work/Activity -- limit lifting to 15 pounds for 1-2 weeks. Then, progressively increase with time. Active Sports (running, biking, etc.) -- cautiously resume after 4 weeks, or when cleared by your surgeon. DISCOMFORT: Expect gradual improvement of residual abdominal soreness as your bowel function continues to returnto normal over the following 1-2 weeks. Please contact the office if you have worsening of abdominalpain, or onset of nausea/vomiting. DIET: Continue on a soft diet (i.e. cooked vegetables, soups, processed meats, light/white bread, mashedpotatoes, rice, yogurt) for the first one to two week after discharge from the hospital. After this time, you may return to diet you were on before surgery minimizing high cellulose foods and foods with skins (i.e.grapes, apple, citrus, corn) only. This would include limiting: brussel sprouts, cabbage & kale, alfalfa sprouts, zucchini, squash, potatoes, carrots, and yams. Drink plenty of fluids. SURGEON CONTACT/APPOINTMENTS: Office CONTACT US IF THE FOLLOWING DEVELOPS: 1. A fever that is above 101?? 2. Severe pain that is not relieved by your prescription. If you have other questions, please call the office Tuesday thru Tuesday between 8am and 5pm to discuss with the nurse or physician stores assistant. # There is a surgeon [facility] on weekday evenings and over the weekend in case of urgent need only, andmay be contacted at the same number. If you are having an emergency, call 911 or proceed to your nearest emergency department. AttachmentsThe following attachments cannot be sent through Care Everywhere.(S) EATING A LOW-FIBER DIET (DUTCH)DIET, LOW-FIBER (DUTCH)documented in this encounter Medications at Time of Discharge Medication Sig Dispensed Refills Start Date End Date BUPROPION HCL ER, XL, PO Take 150 mg by mouth 0 06/02/2019 daily IBUPROFEN PO Take by mouth as 0 2019 needed for moderate pain multivitamin (OCUVITE) Take 1 tablet by 0 06/02/2019 TABS tablet mouth 2 times daily documented as of this encounter Progress Notes Antwon Liang MD - 12/02/2017 10:54 AM CDT [facility] General Surgery Progress Note Assessment and Plan: Assessment: Admission for SBO - conservative management Bowel function returned Plan: -low residue diet -CT enterography in 4-6 weeks will be scheduled by our office -OK to DC Later today from surgical perspective Interval History: Resting in bed, comfortable. No complaints. States he felt a little clammy earlier today. He had another BM last night. Passing flatus this morning. Tolerating diet just fine. Physical Exam: Blood pressure 138/70, pulse (!) 47, temperature 97.4 ??F (36.3 ??C), temperature source Oral, resp.rate 16, height 1.829 m (6' 0.01), weight 108.6 kg (239 lb 6.4 oz), SpO2 97 %. I/O last 3 completed shifts: In: 1774 [P.O.:480; I.V.:1294] Out: - Abdomen: soft, mildly distended, non-tender, +BS Data: Recent Labs Lab 12/01/17 0642 11/30/17 0535 WBC 8.6 15.9* HGB 14.2 17.0 HCT 42.9 52.0 MCV 90 89 PLT 195 288 Sam Whyte PA-C Pt seen and examined, agree with above Appropriate for d/c today with follow up as outlined above. Discussed importance of avoiding large quantities of insoluable plant fiber Kristi Warner MD - 12/01/2017 8:57 AM CDT [facility] General Surgery Progress Note Assessment and Plan: Assessment: Admission for SBO - conservative management Bowel function returning Plan: -Currently trial clamping NGT, should be able to DC today -Start clears after NGT is out -If SBO resolves nonoperatively we recommend SBFT or CT enterography 4-6 weeks post DC Interval History: Resting in bed, comfortable. No complaints. Still has some very mild lower central tenderness. He states he has had 3 BMs and is passing flatus. +NPO, +NGT, +voiding independently. Physical Exam: Blood pressure 107/56, pulse (!) 47, temperature 98.4 ??F (36.9 ??C), temperature source Oral, resp.rate 20, height 1.829 m (6' 0.01), weight 108.6 kg (239 lb 6.4 oz), SpO2 95 %. I/O last 3 completed shifts: In: 2521 [I.V.:2521] Out: 1100 [Emesis/NG output:1100] Abdomen: soft, mildly distended, mild lower central tenderness, +BS Data: Recent Labs Lab Test 12/01/17 0642 11/30/17 0535 08/28/17 1732 HGB 14.2 17.0 15.3 WBC 8.6 15.9* 6.7 Sam Whyte PA-C The patient has been seen and examined by me. I agree with the above assessment and plan. Pt prefersCT enterography in 4-6 weeks. Our office to order. Kristi Warner MD Adalid Cavazos MD - 12/01/2017 8:43 AM CDT [facility] Hospitalist Progress Note Adalid Cavazos MD 12/01/2017 Reason for Stay (Diagnosis): SBO Assessment and Plan: Summary of Stay: Esdras Myers is a 57 year old male came to attention on 11/30/2017 with abdominal pain and constipation. In the ED, he was found to have a small bowel obstruction. Dx: 1. Small bowel obstruction. CT imaging (not a dedicated abdominal study -- was intended to R/O aortic pathology) shows transition point in the mid ileum. He has no prior history of bowel surgeries. NG now out. Doing well with clears. I ok'd him to advance to full, but to be very slow about adding these in. (He has no clear pathologic cause for this event, it seems nlikely that this is something otherthan ileus.) 2. OK to stop IVF and encourage ambulating. 3. Resume usual meds in am, if tolerating oral intake. DVT Prophylaxis: Pneumatic Compression Devices Code Status: Full Code Discharge Dispo: TBD Estimated Disch Date / # of Days until Disch: TBD Interval History (Subjective): Chart reviewed, pt interviewed. feelong much better. Passing gas. Tolerating clears. No nausea. Physical Exam: Last Vital Signs: BP 107/56 (BP Location: Left arm) Pulse (!) 47 Temp 98.4 ??F (36.9 ??C) (Oral) Resp 20 Ht 1.829 m (6' 0.01) Wt 108.6 kg (239 lb 6.4 oz) SpO2 95% BMI 32.46 kg/m2 I/O last 3 completed shifts: In: 3490 [P.O.:480; I.V.:3010] Out: 750 [Emesis/NG output:750] Constitutional: Awake, alert, cooperative, no apparent distress Respiratory: Clear to auscultation bilaterally, no crackles or wheezing Cardiovascular: Regular rate and rhythm, normal S1 and S2, and no murmur noted Abdomen: Normal bowel sounds, soft, non-distended, non-tender Skin: No rashes, no cyanosis, dry to touch Neuro: Alert and oriented x3, no weakness, numbness, memory loss Extremities: No edema, normal range of motion Other(s): All other systems: Negative Medications: All current medications were reviewed with changes reflected in problem list. Data: All new lab and imaging data was reviewed. Labs/Imaging: Results for orders placed or performed during the hospital encounter of 11/30/17 (from the past 24 hour(s)) Basic metabolic panel Result Value Ref Range Sodium 141 133 - 144 mmol/L Potassium 3.8 3.4 - 5.3 mmol/L Chloride 108 94 - 109 mmol/L Carbon Dioxide 29 20 - 32 mmol/L Anion Gap 4 3 - 14 mmol/L Glucose 101 (H) 70 - 99 mg/dL Urea Nitrogen 14 7 - 30 mg/dL Creatinine 1.10 0.66 - 1.25 mg/dL GFR Estimate 69 >60 mL/min/1.7m2 GFR Estimate If Black 83 >60 mL/min/1.7m2 Calcium 8.5 8.5 - 10.1 mg/dL CBC with platelets differential Result Value Ref Range WBC 8.6 4.0 - 11.0 10e9/L RBC Count 4.78 4.4 - 5.9 10e12/L Hemoglobin 14.2 13.3 - 17.7 g/dL Hematocrit 42.9 40.0 - 53.0 % MCV 90 78 - 100 fl MCH 29.7 26.5 - 33.0 pg MCHC 33.1 31.5 - 36.5 g/dL RDW 12.2 10.0 - 15.0 % Platelet Count 195 150 - 450 10e9/L Diff Method Automated Method % Neutrophils 63.3 % % Lymphocytes 23.6 % % Monocytes 8.4 % % Eosinophils 3.5 % % Basophils 0.6 % % Immature Granulocytes 0.6 % Nucleated RBCs 0 0 /100 Absolute Neutrophil 5.4 1.6 - 8.3 10e9/L Absolute Lymphocytes 2.0 0.8 - 5.3 10e9/L Absolute Monocytes 0.7 0.0 - 1.3 10e9/L Absolute Eosinophils 0.3 0.0 - 0.7 10e9/L Absolute Basophils 0.1 0.0 - 0.2 10e9/L Abs Immature Granulocytes 0.1 0 - 0.4 10e9/L Absolute Nucleated RBC 0.0 documented in this encounter H&P Notes Pat Sheldon MD - 11/30/2017 12:16 PM CDT Admitted: 11/30/2017 PRIMARY CARE PHYSICIAN: None. CHIEF COMPLAINT: Abdominal pain. HISTORY OF PRESENT ILLNESS: This is a pleasant 57-year-old gentleman with a past medical history of depression who comes to the hospital with concerns of abdominal pain. The patient mentions that he had pain starting since yesterday. It has been coming periodically and getting more and worse. He also had an episode of nausea, vomiting. He also started having diaphoresis and did not feel very well. Hedenies any chest pain or any shortness of breath per se. In the ER he was noted to have small bowel obstruction, NG tube was placed with significant output. He mentions that he feels significantly improved compared to that time, his pain is a lot more comfortable now. He mentions that his last bowel movement was yesterday and none since then, has not been able to pass any gas. No history of any previous bowel surgeries. He feels a lot more comfortable now and it is much improved. PAST MEDICAL HISTORY: 1. Hyperlipidemia. 2. Depression. 3. History of chondromalacia. PAST SURGICAL HISTORY: 1. Tonsillectomy and adenoidectomy. 2. Torn meniscus. 3. Previous history of angiogram. FAMILY HISTORY: Mother had diabetes insipidus and pituitary dysfunction. There is also a family history of asthma. SOCIAL HISTORY: Nonsmoker. There is a history of alcohol use. Accompanied by his significant other to the ER. ALLERGIES: NO KNOWN DRUG ALLERGIES. MEDICATIONS: 1. Bupropion 2. Ibuprofen. 3. Multivitamin. REVIEW OF SYSTEMS: A comprehensive 10-point review of systems was obtained, pertinent in HPI. Rest was negative. PHYSICAL EXAMINATION: VITAL SIGNS: Blood pressure is 140/78, heart rate is 49, respiration 16, oxygen 97% on room air, temperature 98. GENERAL APPEARANCE: Middle-aged male lying in bed, and cooperative. HEENT: Normocephalic. Oral mucosa was moist. NECK: Supple. CARDIOVASCULAR: Regular rhythm, normal S1, S2. No loud murmurs. PULMONARY: Lungs are clear on both sides. GASTROINTESTINAL: Abdomen is soft. No significant distention. NG tube in place with decent output and bowel sounds are absent. He does have some mild to moderate tenderness in the epigastric area, no rebound or guarding. No signs of peritonitis. EXTREMITIES: Warm and dry with signs of good peripheral perfusion. NEUROLOGIC: Awake, alert and oriented x 3, moving all extremities with good strength. PSYCHIATRIC: Pleasant and cooperative. Maintains eye contact. LABORATORY AND IMAGING: All lab data and imaging done in the last 24 hours has been reviewed. Notable for admitting creatinine of 1.34. Initial lactic acid was 2.5. Repeat is now normal at 1.0. Troponin was negative. Lipase was negative. CBC was remarkable for leukocytosis and white count of 15.9. He had a CT aortic survey, which showed small-bowel obstruction with transition at approximately the midileum. ASSESSMENT AND PLAN: This is a 57-year-old gentleman with a past history of depression who comes to the hospital with concerns for abdominal pain, constipation, found to have a small bowel obstruction. 1. Small bowel obstruction. CT imaging shows transition point in the mid ileum. He has no prior history of bowel surgeries. At this time, he is doing a lot better after NG tube placement. 2. Continue the patient on conservative treatment with IV fluids, bowel rest, NG decompression. 3. Surgery consult appreciated. 4. At this time plan is for conservative treatment; however, if his pain does not improve or starts to get more worse, then he will need surgical exploration. The patient is aware of that. Advised to let us know if he starts feeling any worsening. Otherwise, we will watch his NG tube output and vital closely. 5. Offer p.r.n. medication for pain control and nausea if needed. 6. The patient's oral medications will be on hold for now with the NG tube hooked up to suction. Plan of care was discussed with the patient and his significant other at bedside in great detail. All of their questions were answered. Of note, given the absence of any prior history of surgeries, thepatient would benefit from some imaging to evaluate for stricture or any issues once his episode of obstruction is resolved. Could consider doing a small bowel followthrough or an enterography study in4-6 weeks. PAT SHELDON MD MT: NTS Name: ESDRAS MYERS Account: [id number] : 1960 Admitted: 11/30/2017 Document: [id number] documented in this encounter Consult Notes Kristi Warner MD - 11/30/2017 10:45 AM CDTAssociated Order(s): SURGERY GENERAL IP CONSULT General Surgery Consultation Esdras Myers Age: [age] year old Date of : 1960 Date of Admission: 11/30/2017 Reason for consult: Abdominal pain Requesting physician: Dr. Sheldon Assessment and Plan: Assessment: Esdras Myers is a 57 year old male with a small bowel obstruction and no prior history of abdominal surgery. Comorbidities: none Plan: His pain has improved considerably. Continue conservative management with bowel rest, npo, IVF, andNG tube decompression. Surgical intervention may be needed if the clinical picture worsens or if the patient fails to progress with conservative measure. The nature/natural history of sbo's, potential causes, and potential need for surgical intervention were discussed in detail with the pt and his . All questions were answered. If this sbo resolves nonoperatively, recommend SBFT or CT enterography 4-6 weeks post DC. Chief Complaint: Abdominal pain History is obtained from the patient and his History of Present Illness: Esdras Myers is a 57 year old male who presents with abdominal pain in the epigastricregion which began abruptly yesterday at 2pm after eating a large portion of fruit (~2cups) and carrots (~2cups) for lunch. This is not his usual diet, but he was wanting to start eating healthier. Thepain was sharp, crampy and nearly constant initially, but has greatly inproved since presentation tothe ED. Associated symptoms include with nausea and vomiting x 10. Which he reports was mostly liquid. Negative for associated symptoms of fever and chills. Last bowel movement just after the onset of pain yesterday. He had three partially liquid BMs. Last flatus was at the same time. At baseline BMs are once a day and solid/soft. He has had a colonoscopy 4-5 yrs ago with findings of polyps. He does not have a history of bowel obstructions in the past. Denies blood in the stool. Denies a h/o diarrhea. Denies sick contacts. Past Medical History: has no past medical history on file. Past Surgical History: Past Surgical History: Procedure Laterality Date ??? KNEE SURGERY ??? TONSILLECTOMY, ADENOIDECTOMY, COMBINED Social History: Social History Substance Use Topics ??? Smoking status: Never Smoker ??? Smokeless tobacco: Never Used ??? Alcohol use No Family History: Family history reviewed and is not pertinent. No colon cancer, IBD, chronic diarrhea Allergies: All allergies reviewed and addressed Medications: No current facility-administered medications on file prior to encounter. No current outpatient prescriptions on file prior to encounter. ??? sodium chloride (PF) 3 mL Intracatheter Q8H Review of Systems: The 10 point review of systems is negative other than noted in the HPI. Physical Exam: BP 140/78 (BP Location: Right arm) Pulse (!) 47 Temp 97.8 ??F (36.6 ??C) (Oral) Resp 16 Ht 1.829 m (6') Wt 106.6 kg (235 lb) SpO2 97% BMI 31.87 kg/m2 General - Well developed, well nourished male in no apparent distress HEENT: Head normocephalic and atraumatic, pupils equal and round, conjunctivae clear, no scleral icterus, mucous membranes moist, external ears and nose normal Respirations: not labored Abdomen: soft, rounded, possibly mildly distended with mild tenderness limited to the epigastric region. No rebound or guarding. no masses palpated. Extremities: Warm without edema Neurologic: nonfocal Psychiatric: Mood and affect appropriate Skin: Without lesions, rashes, or juandice Data: Lab Results Component Value Date WBC 15.9 11/30/2017 Lab Results Component Value Date HGB 17.0 11/30/2017 Lab Results Component Value Date PLT 288 11/30/2017 Last Basic Metabolic Panel: Lab Results Component Value Date NA 136 11/30/2017 Lab Results Component Value Date POTASSIUM 4.3 11/30/2017 Lab Results Component Value Date CHLORIDE 101 11/30/2017 Lab Results Component Value Date NYDIA 10.3 11/30/2017 Lab Results Component Value Date CO2 28 11/30/2017 Lab Results Component Value Date BUN 13 11/30/2017 Lab Results Component Value Date CR 1.34 11/30/2017 Lab Results Component Value Date GLC 214 11/30/2017 Imaging: All imaging studies reviewed by me. Results for orders placed or performed during the hospital encounter of 11/30/17 US Abdomen Limited Narrative RIGHT UPPER QUADRANT ULTRASOUND 11/30/2017 6:25 AM HISTORY: Right upper quadrant pain COMPARISON: None. FINDINGS: Gallbladder: Normal with no cholelithiasis, wall thickening or focal tenderness. Bile ducts: CHD is normal diameter. No intrahepatic biliary dilatation. Liver: Echogenicity consistent with fatty infiltration. Pancreas: Mostly obscured. Visualized portions of pancreatic body and proximal tail appear normal. Right kidney: Normal, 11.1 cm in length. Impression IMPRESSION: 1. Fatty infiltration of liver. 2. No gallstones. No evidence for cholecystitis. KIMBERLY TENA MD CT Aortic Survey w Contrast Narrative CT AORTIC SURVEY WITH CONTRAST 11/30/2017 6:13 AM HISTORY: Abdominal pain. COMPARISON : None TECHNIQUE : Aortic survey protocol, thoracic inlet to pubic symphysis with IV contrast. FINDINGS: AORTA: No evidence for thoracic or abdominal aortic aneurysm or dissection. CHEST: No mediastinal, hilar or axillary adenopathy. Mild dependent atelectasis at the posterior lower lobes. The lungs are otherwise clear. No pleural effusion. Small hiatal hernia. Abdomen and pelvis: Fluid-filled distended small bowel in the abdomen and pelvis, there is fecalization of intraluminal contents in the dilated mid ileum with decompressed distal small bowel compatible with small bowel obstruction. Transition at the mid ileum. No other acute-appearing bowel abnormality. Prominent prostate gland. No periaortic or pelvic adenopathy. Degenerative changes L5-S1 and T7-8. No aggressive bone lesions. Low-attenuation subcentimeter liver lesion(s) compatible with benign cysts or other benign lesions. No specific evaluation or follow-up is recommended in a low risk patient. Normal-appearing gallbladder, spleen, pancreas, adrenal glands. There is a small left peripelvic renal cyst and 2 low-attenuation subcentimeter right renal lesions compatible with small benign cysts and no specific imaging evaluation or follow-up is recommended. Impression IMPRESSION: 1. Small bowel obstruction, transition at approximately mid ileum. 2. No evidence for thoracic or abdominal aortic aneurysm or dissection. KIMBERLY TENA MD This note was created using voice recognition software. Undetected word substitutions or other errors may have occurred. Kristi Warner MD Time spent with the patient, reviewing the EMR, reviewing laboratory and imaging studies, more than 50% of which was counseling and coordinating care: 30 minutes. documented in this encounter ED Notes Alanis Crump RN - 11/30/2017 8:42 AM CDT Pain about 5/10. Patient requesting pain meds at this time. Morphine given. NGT with 700cc output. Will admit to 5th floor for further care. Elaine Wiseman - 11/30/2017 8:42 AM CDT Pt with call light on - requests more pain meds. 5/10 pain. RN notified. Minal Olguin RN - 11/30/2017 7:44 AM CDT [facility] ED Nurse Handoff Report Esdras Myers is a 57 year old male ED Chief complaint: Abdominal Pain . ED Diagnosis: Final diagnoses: SBO (small bowel obstruction) Non-intractable vomiting with nausea, unspecified vomiting type Allergies: No Known Allergies Code Status: Full Code Activity level - Baseline/Home: Independent. Activity Level - Current: Independent. Lift room needed: No. Bariatric: No Mill Hand Needed: No Isolation: No. Infection: Not Applicable. Vital Signs: Vitals: 11/30/17 0630 11/30/17 0645 11/30/17 0700 11/30/17 0730 BP: 124/79 112/73 102/69 107/66 Pulse: Resp: 21 21 10 Temp: TempSrc: SpO2: 99% 99% 90% 92% Weight: Height: Cardiac Rhythm: , Pain level: 0-10 Pain Scale: 10 Patient confused: No. Patient Falls Risk: No. Elimination Status: Has voided Patient Report - Initial Complaint: Patient presents with severe abdominal pain for the past 24 hours. Pale and diaphoretic upon presentation To ED. . Focused Assessment: Severe tender diffuse abdominal pain. Patient states pain 5/10 but denies need for further medication. Tests Performed: 11/30/2017 Labs Ordered and Resulted from Time of ED Arrival Up to the Time of Departure from the ED CBC WITH PLATELETS DIFFERENTIAL - Abnormal; Notable for the following: Result Value WBC 15.9 (*) Absolute Neutrophil 12.1 (*) All other components within normal limits COMPREHENSIVE METABOLIC PANEL - Abnormal; Notable for the following: Glucose 214 (*) Creatinine 1.34 (*) GFR Estimate 55 (*) Calcium 10.3 (*) Albumin 5.1 (*) Protein Total 8.9 (*) All other components within normal limits LACTIC ACID WHOLE BLOOD - Abnormal; Notable for the following: Lactic Acid 2.5 (*) All other components within normal limits INR PARTIAL THROMBOPLASTIN TIME LIPASE TROPONIN I PERIPHERAL IV CATHETER ISTAT CREATININE NURSING POCT PULSE OXIMETRY NURSING CARDIAC CONTINUOUS MONITORING . Abnormal Results: as above. Treatments provided: NGT placed with initial 400cc output. Patient tolerating NGT well. Family Comments: spouse here with patient OBS brochure/video discussed/provided to patient: N/A ED Medications: Medications morphine (PF) injection 4 mg (4 mg Intravenous Given 11/30/17538) lidocaine (XYLOCAINE) 2 % topical gel (not administered) 0.9% sodium chloride BOLUS (0 mLs Intravenous Stopped 11/30/17743) ondansetron (ZOFRAN) injection 4 mg (4 mg Intravenous Given 11/30/17538) 0.9% sodium chloride BOLUS (0 mLs Intravenous Stopped 11/30/17703) iopamidol (ISOVUE-370) solution 75 mL (75 mLs Intravenous Given 11/30/17603) Drips infusing: No For the majority of the shift, the patient's behavior Green. Interventions performed were none. Severe Sepsis OR Septic Shock Diagnosis Present: No ED Nurse Name/Phone Number: Alnais Crump, 7:44 AM RECEIVING UNIT ED HANDOFF REVIEW Above ED Nurse Handoff Report was reviewed: Yes Reviewed by: Minal Olguin on November 30, 2017 at 8:36 AM Kamini Butler RN - 11/30/2017 5:57 AM CDT Oxygen saturation at 85% RA, placed on 4L per NC. Oxygen saturation at 92 % . Bria Franz RN - 11/30/2017 5:17 AM CDT abd pain started yesterday epigastric area N/v no diarrhea profuse sweating now Rates pain 10/10 Localized area Here for eval Irving Leonardo MD - 11/30/2017 5:04 AM CDT History Chief Complaint: Abdominal Pain HPI Esdras Myers is a 57 year old male who presents to the ED for evaluation of abdominal pain. Thepatient reports that he has developed waves of epigastric abdominal pain over the past day. He additionally has had some nausea and vomiting with diffuse diaphoresis, so he presented to the ED for evaluation. He denies any chest pain, diarrhea, or any other symptoms or concerns. He additionally deniesany radiation to his back. Allergies: NKDA Medications: Buproprion Past Medical History: Depression Chondromalacia Past Surgical History: Knee surgery Tonsillectomy & Adenoidectomy Family History: No past pertinent family history. Social History: Marital Status: Negative for tobacco use. Negative for alcohol use. Review of Systems Constitutional: Positive for diaphoresis. Cardiovascular: Negative for chest pain. Gastrointestinal: Positive for abdominal pain, nausea and vomiting. Negative for diarrhea. Musculoskeletal: Negative for back pain. All other systems reviewed and are negative. Physical Exam Patient Vitals for the past 24 hrs: BP Temp Temp src Pulse Heart Rate Resp SpO2 Height Weight 11/30/17 0545 135/81 - - - 45 11 94 % - - 11/30/17 0518 108/90 97.8 ??F (36.6 ??C) Oral 47 - 20 97 % 1.829 m (6') 106.6 kg (235 lb) Physical Exam Nursing note and vitals reviewed. Constitutional: Cooperative. Uncomfortable appearing. Diaphoretic. HENT: Mouth/Throat: Mucous membranes are dry Cardiovascular: Bradycardic rate, regular rhythm and normal heart sounds. No murmur. Pulmonary/Chest: Effort normal and breath sounds normal. No respiratory distress. No wheezes. No rales. Abdominal: Mild distension. There is diffuse abdominal tenderness. There is no rigidity and no guarding. Quiet bowel sounds. Neurological: Alert. Oriented x4 Skin: Skin is warm and dry. No rash noted. Psychiatric: Normal mood and affect. Emergency Department Course ECG: Indication: Epigastric Pain Time: 05 Vent. Rate 45 bpm. HI interval 128. QRS duration 116. QT/QTc 468/404. P-R-T axis * 18 48. Sinus bradycardia. Nonspecific ST segment changes noted. Read time: 529 Imaging: Radiographic findings were communicated with the patient who voiced understanding of the findings. US Abdomen, limited: 1. Fatty infiltration of liver. 2. No gallstones. No evidence for cholecystitis, as per radiology. CT Aortic Survey with IV contrast: 1. Small bowel obstruction, transition at approximately mid ileum. 2. No evidence for thoracic or abdominal aortic aneurysm or dissection, as per radiology. Laboratory: CBC: WBC: 15.9 (H), HGB: 17.0, PLT: 288 CMP: Glucose 214 (H), Creatinine 1.34 (H), GFR 55 (L), Calcium 10.3 (H), Albumin 5.1 (H), protein 8.9 (H), o/w WNL Lipase: 156 0535 Lactic acid: 2.5 (H) PTT: 23 INR: 0.91 0535 Troponin: <0.015 Interventions: 0535 NS 1L IV 0539 Morphine, 4 mg, IV injection Zofran, 4 mg, IV injection Please see MAR for full list of medications administered in the ED. Emergency Department Course: Nursing notes and vitals reviewed. (2708) I performed an exam of the patient as documented above. IV inserted. Medicine administered as documented above. Blood drawn. This was sent to the lab for further testing, results above. The patient was sent for an Abdomen US & Aortic Survey CT while in the emergency department, findings above. EKG obtained in the ED, see results above. (5843) I rechecked the patient and discussed the results of his workup thus far. NG tube placed, 400cc output initially. I consulted with Dr. Sheldon of the hospitalist services. They are in agreement to accept the patientfor admission. Findings and plan explained to the Patient who consents to admission. Discussed the patient with , who will admit the patient to a bed for further monitoring, evaluation, and treatment. Impression & Plan Medical Decision Making: Esdras Myers is a 57 year old male who presents with acute abdominal pain, diaphoresis, and vomiting. I was concerned for a possible ruptured AAA, so an Aortic Survey and CT was ordered. He does have a mid ileum SBO. Curiously, he does not have a history of abdominal surgery or other risk factors. We will place an NG tube and proceed with medical management, as he is markedly more comfortable onrepeat exam. No indication for emergent surgical consultation. Patient and his had their questions answered, and they are comfortable with the plan for admission. Diagnosis: ICD-10-CM 1. SBO (small bowel obstruction) K56.609 2. Non-intractable vomiting with nausea, unspecified vomiting type R11.2 Disposition: Admitted to Dr. Sheldon Scribdeirdre Disclosure: I, Anjali West, am serving as a scribe on 11/30/2017 at 5:21 AM to personally document services performed by Irving Leonardo MD based on my observations and the provider's statements to me. Anjali West 11/30/2017 [facility] EMERGENCY DEPARTMENT Irving Leonardo MD 11/30/17 2369 documented in this encounter Miscellaneous Notes Plan of Care - Madeline Guzman RN - 12/02/2017 12:55 PM CDT Problem: Patient Care Overview Goal: Plan of Care/Patient Progress Review Outcome: Adequate for Discharge Date Met: 12/02/17 Pt to D/C to home. Pt provided with d/c instructions, including new medications, when medications were last given, and when to take them again. Pt also informed to f/u with surgery in 4-6 weeks. Pt verbalized understanding of all d/c and f/u instructions. All questions were answered at this time. Copyof paperwork sent with pt. No new medications sent with patient at this time. to provide transport. All personal belongings sent with pt. No concerns at this time. Plan of Care - Cathie Davis RN - 12/02/2017 5:05 AM CDT Problem: Bowel Obstruction (Adult) Goal: Signs and Symptoms of Listed Potential Problems Will be Absent, Minimized or Managed (Bowel Obstruction) Signs and symptoms of listed potential problems will be absent, minimized or managed by discharge/transition of care (reference Bowel Obstruction (Adult) CPG). Outcome: Adequate for Discharge Date Met: 12/02/17 VSS, HR chary. Pt denies pain & nausea. Tolerating FLD, BS active x4, pt reports passing gas, denies stools overnight. Pt up independently, voiding fine. Likely D/C home later today pending diet advance. Plan of Care - Argentina Esquivel RN - 12/01/2017 11:19 PM CDT Problem: Patient Care Overview Goal: Plan of Care/Patient Progress Review Outcome: Improving VSS, afebrile. Independent in room and halls. Tolerating full liquids, having loose stools, denies pain/nausea. Plan for diet advancement and possible d/c tomorrow. Plan of Care - Madeline Guzman RN - 12/01/2017 2:36 PM CDT Problem: Patient Care Overview Goal: Plan of Care/Patient Progress Review Outcome: Improving Pt remains admitted for SBO No complaints of pain or nausea during shift NG clamping trial, tolerated well, NG removed Advanced to clear liquids, tolerating well Reporting loose BM during shift Up independently Possible d/c home tomorrow Will continue to monitor Plan of Care - Natalie Malave RN - 12/01/2017 5:41 AM CDT Problem: Bowel Obstruction (Adult) Goal: Signs and Symptoms of Listed Potential Problems Will be Absent, Minimized or Managed (Bowel Obstruction) Signs and symptoms of listed potential problems will be absent, minimized or managed by discharge/transition of care (reference Bowel Obstruction (Adult) CPG). Outcome: No Change Pt remains hospitalized for SBO. Up independently, voiding without difficulty. BS active, loose stool x 1 this shift, passing flatus. PIV LR 125/hr. IV Dilaudid x 1 and IV Zofran x 1. NG in place. Will continue to monitor. Plan of Care - Elana Najera RN - 11/30/2017 10:51 PM CDT Problem: Patient Care Overview Goal: Plan of Care/Patient Progress Review Outcome: Improving Ambulatory Status: SBA in room. VS: T max 99.0, used cool wash cloth, was helpful. C/O runny nose and eyes, gave IV benadryl. Pain: Stated a little pain on right side of abd. Resp: LS Clear bilaterally. GI: c/o nausea. Gave IV Zofran. It was effective NPO ok for ice chips diet. BS active x 4. Passing flatus, started this shift. : WDL Tx: NG. Output 650ml Labs: Cr 1.34 WBC: 15.9 Disposition: TBD Provider Notification - Elana Najera RN - 11/30/2017 9:55 PM CDT Pt has runny nose and eyes. Can we get an allergy med? Thanks Plan of Care - Minal Olguin RN - 11/30/2017 11:50 AM CDT Problem: Patient Care Overview Goal: Plan of Care/Patient Progress Review Outcome: No Change Neuro: WDL VS: HR 48-50. All other VSS Tele: N/A Respiratory: WDL GI: Bowel sounds to LUQ & LLQ hypoactive. Not passing flatus. Denies nausea. NG in place mL gastric contexts. : WDL Skin: WDL Pain: denies pain at this time. IV: PIV WDL infusing LR @ 125 ml/hr Transfer: SBA Diet: NPO Plan: TBD. Surgery and Hospitalist following. Pharmacy-Admission Medication History - Estefanía Kincaid Idalia - 11/30/2017 10:31 AM CDT Admission medication history interview status for this patient is complete. See [facility] admission navigator for allergy information, prior to admission medications and immunization status. Medication history interview source(s):Patient and family Medication history resources (including written lists, pill bottles, clinic record):called pharmacy to clarify formulation Primary pharmacy:[facility] Changes made to [facility] medication list: Added: all meds Deleted: Changed: Actions taken by pharmacist (provider contacted, etc):sticky note for MD Additional medication history information:None Medication reconciliation/reorder completed by provider prior to medication history? No Do you take OTC medications (eg tylenol, ibuprofen, fish oil, eye/ear drops, etc)? Y(Y/N) For patients on insulin therapy: NA (Y/N) Prior to Admission medications Medication Sig Last Dose Taking? Auth Provider BUPROPION HCL ER, XL, PO Take 150 mg by mouth daily Past Week at Unknown time Yes Unknown, Entered By History IBUPROFEN PO Take by mouth as needed for moderate pain Yes Unknown, Entered By History multivitamin (OCUVITE) TABS tablet Take 1 tablet by mouth 2 times daily Past Week at Unknown time Yes Unknown, Entered By History documented in this encounter Plan of Treatment Not on filedocumented as of this encounter Procedures Procedure Name Priority Date/Time Associated Comments Diagnosis HEMOGLOBIN A1C Routine 12/02/2017 8:44 AM SBO (small bowel Res ults for this CDT obstruction) procedure are i n the results section. BASIC METABOLIC PANEL Routine 12/02/2017 8:44 AM SBO (small devyn wel Results for this CDT obstruction) procedure are i n the results section. CBC WITH PLATELETS & Routine 12/01/2017 6:42 AM SBO (small bow el Results for this DIFFERENTIAL CDT obstruction) procedure are i n the results section. BASIC METABOLIC PANEL Routine 12/01/2017 6:42 AM SBO (small devyn wel Results for this CDT obstruction) procedure are i n the results section. LACTIC ACID WHOLE BLOOD Routine 11/30/2017 11:03 SBO (small devyn wel Results for this AM CDT obstruction) procedure are i n the results section. US ABDOMEN LIMITED STAT 11/30/2017 6:25 AM Res ults for this CDT procedure are i n the results section. CT AORTIC SURVEY W STAT 11/30/2017 6:13 AM Res ults for this CONTRAST CDT procedure are i n the results section. CBC WITH PLATELETS & STAT 11/30/2017 5:35 AM R esults for this DIFFERENTIAL CDT procedure are i n the results section. TROPONIN I STAT 11/30/2017 5:35 AM Results f or this CDT procedure are i n the results section. INR STAT 11/30/2017 5:35 AM Results f or this CDT procedure are i n the results section. PARTIAL THROMBOPLASTIN STAT 11/30/2017 5:35 AM Results for this TIME CDT procedure are i n the results section. LIPASE STAT 11/30/2017 5:35 AM Results f or this CDT procedure are i n the results section. LACTIC ACID WHOLE BLOOD STAT 11/30/2017 5:35 AM Results for this CDT procedure are i n the results section. ISTAT CREATININE POCT Routine 11/30/2017 5:35 AM SBO (small devyn wel Results for this CDT obstruction) procedure are i n the results section. COMPREHENSIVE METABOLIC STAT 11/30/2017 5:35 AM Results for this PANEL CDT procedure are i n the results section. EKG 12-LEAD, TRACING STAT 11/30/2017 5:27 AM R esults for this ONLY CDT procedure are i n the results section. documented in this encounter Results (ABNORMAL) Hemoglobin A1c (12/02/2017 8:44 AM CDT) P athologist Signature Hemoglobin A1C 5.8 (H) 0 - 5.6 % 12/02/2017 [place] 12:19 PM T [facility] Comment: Normal <5.7% Prediabetes 5.7-6.4% ??Diab etes 6.5% or higher - adopted from ADA consensus guidelines. Specimen Anatomical Collection Method Collection Time Receive d Time (Source) Location / / Volume Laterality 12/02/2017 8:44 AM 8 8:45 CDT AM CDT Adalid Cavazos MD LAB - BLOOD ORDERABLES Performing Organization Address City/State/ZIP Code Phon e Number [place] [address] [address] [place], [place] [address] [facility] [address] [place], [place] [address] [facility] [phone] (ABNORMAL) Basic metabolic panel (12/02/2017 8:44 AM CDT) athologist Signature Sodium 140 133 - 144 12/02/2017 [place] mmol/L 9:39 AM [facility] Potassium 4.0 3.4 - 5.3 12/02/2017 [place] mmol/L 9:39 AM [facility] Chloride 105 94 - 109 12/02/2017 [place] mmol/L 9:39 AM [facility] Carbon Dioxide 27 20 - 32 12/02/2017 [place] mmol/L 9:39 AM [facility] Anion Gap 8 3 - 14 12/02/2017 [place] mmol/L 9:39 AM [facility] Glucose 161 (H) 70 - 99 12/02/2017 [place] mg/dL 9:39 AM [facility] Urea Nitrogen 12 7 - 30 12/02/2017 [place] mg/dL 9:39 AM [facility] Creatinine 0.97 0.66 - 12/02/2017 [place] 1.25 mg/dL 9:39 AM [facility] GFR Estimate 80 >60 12/02/2017 [place] mL/min/1.7 9:[address] Comment: Non GFR Calc GFR Estimate If >90 >60 mL/min/1.7m2 12/02/2017 9:39 A [facility] Comment: GFR Calc Calcium 8.9 8.5 - 10.1 mg/dL 12/02/2017 9:39 AM [facility] Specimen Anatomical Collection Method Collection Time Receive d Time (Source) Location / / Volume Laterality Blood specimen 12/02/2017 8:44 AM 018 8:45 (specimen) CDT [facility] Adalid Cavazos MD LAB - BLOOD ORDERABLES Performing Organization Address City/State/ZIP Code Phon e Number M [facility] [address] [place], [place] [address] [facility] [address] [address] [phone] CBC with platelets differential (12/01/2017 6:42 AM [facility]) [facility] gist Method Time Signature WBC 8.6 4.0 - 12/01/2017 [facility] 11.0 7:22 AM [facility] 10e9/L [facility] RBC Count 4.78 4.4 - 5.9 12/01/2017 [facility] 10e12/L 7:22 AM [facility] Hemoglobin 14.2 13.3 - 12/01/2017 [facility] 17.7 g/dL 7:22 AM [facility] Hematocrit 42.9 40.0 - 12/01/2017 [facility] 53.0 % 7:22 AM [facility] MCV 90 78 - 100 12/01/2017 [facility] fl 7:22 AM [facility] MCH 29.7 26.5 - 12/01/2017 [facility] 33.0 pg 7:22 AM [facility] MCHC 33.1 31.5 - 12/01/2017 [facility] 36.5 g/dL 7:22 AM [facility] RDW 12.2 10.0 - 12/01/2017 [facility] 15.0 % 7:22 AM [facility] Platelet Count 195 150 - 450 12/01/2017 [facility] 10e9/L 7:22 AM [facility] Diff Method Automated 12/01/2017 [facility] Method 7:22 AM [facility] % Neutrophils 63.3 % 12/01/2017 [facility] 7:22 AM [facility] % Lymphocytes 23.6 % 12/01/2017 [facility] 7:22 AM [facility] % Monocytes 8.4 % 12/01/2017 [facility] 7:22 AM [facility] % Eosinophils 3.5 % 12/01/2017 [facility] 7:22 AM [facility] % Basophils 0.6 % 12/01/2017 [facility] 7:22 AM [facility] % Immature 0.6 % 12/01/2017 [facility] Granulocytes 7:22 AM [facility] Nucleated RBCs 0 0 /100 12/01/2017 [facility] 7:22 AM [facility] Absolute 5.4 1.6 - 8.3 12/01/2017 [place] Neutrophil 10e9/L 7:22 AM [facility] Absolute 2.0 0.8 - 5.3 12/01/2017 [facility] Lymphocytes 10e9/L 7:22 AM [facility] Absolute 0.7 0.0 - 1.3 12/01/2017 [facility] Monocytes 10e9/L 7:22 AM [facility] Absolute 0.3 0.0 - 0.7 12/01/2017 [facility] Eosinophils 10e9/L 7:22 AM [facility] Absolute 0.1 0.0 - 0.2 12/01/2017 [facility] Basophils 10e9/L 7:22 AM [facility] Abs Immature 0.1 0 - 0.4 12/01/2017 [place] Granulocytes 10e9/L 7:22 AM [facility] Absolute 0.0 12/01/2017 [place] Nucleated RBC 7:22 AM [facility] Specimen Anatomical Collection Method Collection Time Receive d Time (Source) Location / / Volume Laterality Blood specimen 12/01/2017 6:42 AM 018 6:43 (specimen) CDT AM CDT Pat Sheldon MD LAB - BLOOD ORDERABLES Performing Organization Address City/State/ZIP Code Phon e Number M [facility] [address] [place] [address] [facility] [address] [phone] (ABNORMAL) Basic metabolic panel (12/01/2017 6:42 AM CDT) P athologist Signature Sodium 141 133 - 144 12/01/2017 [place] mmol/L 7:37 AM [facility] Potassium 3.8 3.4 - 5.3 12/01/2017 [place] mmol/L 7:37 AM [facility] Chloride 108 94 - 109 12/01/2017 [place] mmol/L 7:37 AM [facility] Carbon Dioxide 29 20 - 32 12/01/2017 [place] mmol/L 7:37 AM [facility] Anion Gap 4 3 - 14 12/01/2017 [place] mmol/L 7:37 AM [facility] Glucose 101 (H) 70 - 99 12/01/2017 [facility] mg/dL 7:37 AM [facility] Urea Nitrogen 14 7 - 30 12/01/2017 [place] mg/dL 7:37 AM [facility] Creatinine 1.10 0.66 - 12/01/2017 [place] 1.25 mg/dL 7:37 AM [facility] GFR Estimate 69 >60 12/01/2017 [place] mL/min/1.7 7:[address] Comment: Non GFR Calc GFR Estimate If 83 >60 mL/min/1.7m2 12/01/2017 7:37 A [facility] Comment: GFR Calc Calcium 8.5 8.5 - 10.1 mg/dL 12/01/2017 7:37 AM [facility] Specimen Anatomical Collection Method Collection Time Receive d Time (Source) Location / / Volume Laterality Blood specimen 12/01/2017 6:42 AM 018 6:43 (specimen) CDT AM CDT Pat Sheldon MD LAB - BLOOD ORDERABLES Performing Organization Address City/[facility]/ZIP Code Phon e Number [facility] [address] [place] [phone] [place] [address] [address] [place] [phone] Lactic acid whole blood (11/30/2017 11:03 AM CDT) P athologist Signature Lactic Acid 1.0 0.7 - 2.0 11/30/2017 [place] mmol/L 11:12 AM [facility] Specimen Anatomical Collection Method Collection Time Receive d Time (Source) Location / / Volume Laterality Blood specimen 11/30/2017 11:03 8 (specimen) AM CDT 11:04 AM CDT Pat Sheldon MD LAB - BLOOD ORDERABLES Performing Organization Address City/State/ZIP Code Phon e Number M [facility] [address] [place], [place] [address] [facility] [address] [place], [place] [address] [facility] [phone] US Abdomen Limited (11/30/2017 6:25 AM CDT) Anatomical Region Laterality Modality Abdomen/Pelvis Ultrasound Specimen (Source) Anatomical Location Collection Method / Collectio n Time Received Time / Laterality Volume Impressions 11/30/2017 6:48 AM CDT IMPRESSION: ?? 1. Fatty infiltration of liver. 2. No gallstones. No evidence for cholec ystitis. KIMBERLY TENA MD Narrative 11/30/2017 6:48 AM CDT RIGHT UPPER QUADRANT ULTRASOUND 11/30/2017 6:25 AM HISTORY: ??Right upper quadrant pain COMPARISON: None. FINDINGS: ?? Gallbladder: ??Normal with no cholelithi asis, wall thickening or focal tenderness. ?? Bile ducts: ?? CHD is normal diameter. ? ?No intrahepatic biliary dilatation. Liver: ??Echogenicity consistent with fa tty infiltration. Pancreas: Mostly obscured. Visualized po rtions of pancreatic body and proximal tail appear normal. Right kidney: ??Normal, 11.1 cm in lengt h. Procedure Note Kimberly Tena MD - 11/30/2017For matting of this note might be different from the original. RIGHT UPPER QUADRANT ULTRASOUND 11/30/2017 6:25 AM HISTORY: Right upper quadrant pain COMPARISON: None. FINDINGS: Gallbladder: Normal with no cholelithias is, wall thickening or focal tenderness. Bile ducts: CHD is normal diameter. No i ntrahepatic biliary dilatation. Liver: Echogenicity consistent with fatt y infiltration. Pancreas: Mostly obscured. Visualized po rtions of pancreatic body and proximal tail appear normal. Right kidney: Normal, 11.1 cm in length. IMPRESSION: 1. Fatty infiltration of liver. 2. No gallstones. No evidence for cholec ystitis. KIMBERLY TENA MD Irving Leonardo MD IMG US ORDERABLES CT Aortic Survey w Contrast (11/30/2017 6:13 AM CDT) Anatomical Region Laterality Modality Abdomen/Pelvis, Chest, SUBRAD CT BODY, UMP CT CHEST, Computed Tomography UMP CT ABDOMEN PELVIS, RAD CT Specimen (Source) Anatomical Location Collection Method / Collectio n Time Received Time / Laterality Volume Impressions 11/30/2017 6:40 AM CDT IMPRESSION: 1. Small bowel obstruction, transition a t approximately mid ileum. 2. No evidence for thoracic or abdominal aortic aneurysm or dissection. KIMBERLY TENA MD Narrative 11/30/2017 6:[address] AORTIC SURVEY WITH CONTRAST 11/30/2017 6:13 AM HISTORY: Abdominal pain. COMPARISON : None TECHNIQUE : Aortic survey protocol, thor acic inlet to pubic symphysis with IV contrast. FINDINGS: AORTA: No evidence for thoracic or abdom inal aortic aneurysm or dissection. CHEST: No mediastinal, hilar or axillary adenopathy. Mild dependent atelectasis at the posterior lower lobes . The lungs are otherwise clear. No pleural effusion. Small hiatal hernia. Abdomen and pelvis: Fluid-filled distend ed small bowel in the abdomen and pelvis, there is fecalization of int raluminal contents in the dilated mid ileum with decompressed dist al small bowel compatible with small bowel obstruction. Transition at t he mid ileum. No other acute-appearing bowel abnormality. Prominent prostate gland. No periaortic or pelvic adenopathy. Degenerative changes L5-S1 and T7-8. No aggressive bone lesions. Low-attenuation subcentimeter liver les ion(s) compatible with benign cysts or other benign lesions. No specif ic evaluation or follow-up is recommended in a low risk patient. Mandy l-appearing gallbladder, spleen, pancreas, adrenal glands. There is a small left peripelvic renal cyst and 2 low-attenuation subcent imeter right renal lesions compatible with small benign cysts and n o specific imaging evaluation or follow-up is recommended. Procedure Note Kimberly Tena MD - 11/30/2017For matting of this note might be different from the original. CT AORTIC SURVEY WITH CONTRAST 11/30/2017 6:13 AM HISTORY: Abdominal pain. COMPARISON : None TECHNIQUE : Aortic survey protocol, thor acic inlet to pubic symphysis with IV contrast. FINDINGS: AORTA: No evidence for thoracic or abdom inal aortic aneurysm or dissection. CHEST: No mediastinal, hilar or axillary adenopathy. Mild dependent atelectasis at the posterior lower lobes . The lungs are otherwise clear. No pleural effusion. Small hiatal hernia. Abdomen and pelvis: Fluid-filled distend ed small bowel in the abdomen and pelvis, there is fecalization of int raluminal contents in the dilated mid ileum with decompressed dist al small bowel compatible with small bowel obstruction. Transition at t he mid ileum. No other acute-appearing bowel abnormality. Prominent prostate gland. No periaortic or pelvic adenopathy. Degenerative changes L5-S1 and T7-8. No aggressive bone lesions. Low-attenuation subcentimeter liver les ion(s) compatible with benign cysts or other benign lesions. No specif ic evaluation or follow-up is recommended in a low risk patient. Mandy l-appearing gallbladder, spleen, pancreas, adrenal glands. There is a small left peripelvic renal cyst and 2 low-attenuation subcent imeter right renal lesions compatible with small benign cysts and n o specific imaging evaluation or follow-up is recommended. IMPRESSION: 1. Small bowel obstruction, transition a t approximately mid ileum. 2. No evidence for thoracic or abdominal aortic aneurysm or dissection. KIMBERLY TENA MD Irving Leonardo MD IMG CT ORDERABLES (ABNORMAL) Creatinine POCT (11/30/2017 5:35 AM CDT) athologist Signature Creatinine 1.5 (H) 0.66 - 12/01/2017 POINT OF CARE 1.25 mg/dL 2:44 PM CDT TEST, HANDHELD METER GFR Estimate 48 (L) >60 12/01/2017 POINT OF CARE mL/min/1.7 2:44 PM CDT TEST, m2 HANDHELD METER GFR Estimate If 58 (L) >60 12/01/2017 POINT OF CARE Black mL/min/1.7 2:44 PM CDT TEST, m2 HANDHELD METER Specimen Anatomical Collection Method Collection Time Receive d Time (Source) Location / / Volume Laterality 11/30/2017 5:35 AM 8 2:44 CDT PM CDT Pat Sheldon MD [facility] POCT Performing Organization Address City/State/ZIP Code Phon e Number [facility] POINT OF CARE TEST, HANDHELD METER POINT OF CARE TEST, HANDHELD METER Troponin I (now) (11/30/2017 5:35 AM CDT) athologist Signature Troponin I ES <0.015 0.000 - 11/30/2017 [place] 0.045 ug/L 6:07 AM CDT [facility] Comment: The 99th percentile for upper reference range is 0.045 ug/L. ??Troponin values in the range of 0.045 - 0.120 ug/L may b e associated with risks of adverse clinical events. Specimen Anatomical Collection Method Collection Time Receive d Time (Source) Location / / Volume Laterality Blood specimen 11/30/2017 5:35 AM 018 5:36 (specimen) CDT AM CDT Irving Leonardo MD LAB - BLOOD ORDERABLES Performing Organization Address City/State/ZIP Code Phon e Number M [facility] [address], [place] [address] [place] [address] [address] [place], [place] [address], [facility] [phone] Lipase (11/30/2017 5:35 AM CDT) athologist Signature Lipase 156 73 - 393 11/30/2017 [facility] U/L 6:07 AM CDT HOSPITAL Specimen Anatomical Collection Method Collection Time Receive d Time (Source) Location / / Volume Laterality Blood specimen 11/30/2017 5:35 AM 018 5:36 (specimen) CDT AM CDT Irving Leonardo MD LAB - BLOOD ORDERABLES Performing Organization Address City/State/ZIP Code Phon e Number M [facility] [address], [place] [address] [place] [address] [address] [place], [place] [address], [facility] [phone] (ABNORMAL) Lactic acid whole blood (11/30/2017 5:35 AM CDT) P athologist Signature Lactic Acid 2.5 (H) 0.7 - 2.0 11/30/2017 [place] mmol/L 5:49 AM CDT [facility] Specimen Anatomical Collection Method Collection Time Receive d Time (Source) Location / / Volume Laterality Blood specimen 11/30/2017 5:35 AM 018 5:36 (specimen) CDT AM CDT Irving Leonardo MD LAB - BLOOD ORDERABLES Performing Organization Address City/State/ZIP Code Phon e Number M [facility] [address], [place] [address] [facility] Luli Peacock [address] [phone] (ABNORMAL) Comprehensive metabolic panel (11/30/2017 5:35 AM [facility]) Analysis Performed At Patho logist Time Signature Sodium 136 133 - 144 11/30/2017 [place] mmol/L 6:07 AM [facility] Potassium 4.3 3.4 - 5.3 11/30/2017 [place] mmol/L 6:07 AM [facility] Chloride 101 94 - 109 11/30/2017 [place] mmol/L 6:07 AM [facility] Carbon Dioxide 28 20 - 32 11/30/2017 [place] mmol/L 6:07 AM [facility] Anion Gap 7 3 - 14 11/30/2017 [place] mmol/L 6:07 AM [facility] Glucose 214 (H) 70 - 99 11/30/2017 [facility] mg/dL 6:07 AM [facility] Urea Nitrogen 13 7 - 30 11/30/2017 [place] mg/dL 6:07 AM [facility] Creatinine 1.34 (H) 0.66 - 11/30/2017 [place] 1.25 mg/dL 6:07 AM [facility] GFR Estimate 55 (L) >60 11/30/2017 [place] mL/min/1.7 6:[address] Comment: Non GFR Calc GFR Estimate If 66 >60 mL/min/1.7m2 11/30/2017 6:07 A [facility] Comment: GFR Calc Calcium 10.3 (H) 8.5 - 10.1 11/30/2017 6:07 AM [place] mg/dL [facility] Bilirubin Total 1.1 0.2 - 1.3 mg/dL 11/30/2017 6:07 AM [facility] Albumin 5.1 (H) 3.4 - 5.0 g/dL 11/30/2017 6:[address] [facility] Protein Total 8.9 (H) 6.8 - 8.8 g/dL 11/30/2017 6:07 AM [facility] Alkaline Phosphatase 109 40 - 150 U/L 11/30/2017 6:07 AM [facility] ALT 40 0 - 70 U/L 11/30/2017 6:07 AM [facility] AST 24 0 - 45 U/L 11/30/2017 6:07 AM [facility] Specimen Anatomical Collection Method Collection Time Receive d Time (Source) Location / / Volume Laterality Blood specimen 11/30/2017 5:35 AM 018 5:36 (specimen) CDT AM CDT Irving Leonardo MD LAB - BLOOD ORDERABLES Performing Organization Address City/[facility] Phon e Number [facility] [address], [place] [address] [facility] [address], [place] [address], [facility] [phone] Partial thromboplastin time (11/30/2017 5:35 AM CDT) P athologist Signature PTT 23 22 - 37 sec 11/30/2017 [facility] 5:57 AM CDT [facility] Specimen Anatomical Collection Method Collection Time Receive d Time (Source) Location / / Volume Laterality Blood specimen 11/30/2017 5:35 AM 018 5:36 (specimen) CDT AM CDT Irving Leonardo MD LAB - BLOOD ORDERABLES Performing Organization Address City/[facility]/ZIP [facility] Phon e Number M [facility] [address], [place] [address] [facility] [address], [place] [address], [facility] [phone] INR (11/30/2017 5:35 AM CDT) P athologist Signature INR 0.91 0.86 - 1.14 11/30/2017 [facility] 5:57 AM CDT [facility] Specimen Anatomical Collection Method Collection Time Receive d Time (Source) Location / / Volume Laterality Blood specimen 11/30/2017 5:35 AM 018 5:36 (specimen) CDT AM CDT Irving Leonardo MD LAB - BLOOD ORDERABLES Performing Organization Address City/State/ZIP Code Phon e Number M [facility] [address], [place] [address] [facility] [address], [place] [address] [phone] (ABNORMAL) CBC with platelets differential (11/30/2017 5:35 AM T) [facility] gist Method Time Signature WBC 15.9 (H) 4.0 - 11/30/2017 [facility] 11.0 5:47 AM [facility] 10e9/L [facility] RBC Count 5.87 4.4 - 5.9 11/30/2017 [facility] 10e12/L 5:47 AM [facility] Hemoglobin 17.0 13.3 - 11/30/2017 [facility] 17.7 g/dL 5:47 AM [facility] Hematocrit 52.0 40.0 - 11/30/2017 [facility] 53.0 % 5:47 AM [facility] MCV 89 78 - 100 11/30/2017 [facility] fl 5:47 AM [facility] MCH 29.0 26.5 - 11/30/2017 [facility] 33.0 pg 5:47 AM [facility] MCHC 32.7 31.5 - 11/30/2017 [facility] 36.5 g/dL 5:47 AM [facility] RDW 12.2 10.0 - 11/30/2017 [facility] 15.0 % 5:47 AM [facility] Platelet Count 288 150 - 450 11/30/2017 [facility] 10e9/L 5:47 AM [facility] Diff Method Automated 11/30/2017 [facility] Method 5:47 AM [facility] % Neutrophils 75.7 % 11/30/2017 [facility] 5:47 AM [facility] % Lymphocytes 14.4 % 11/30/2017 [facility] 5:47 AM [facility] % Monocytes 6.4 % 11/30/2017 [facility] 5:47 AM [facility] % Eosinophils 1.6 % 11/30/2017 [facility] 5:47 AM [facility] % Basophils 0.8 % 11/30/2017 [facility] 5:47 AM [facility] % Immature 1.1 % 11/30/2017 [facility] Granulocytes 5:47 AM [facility] Nucleated RBCs 0 0 /100 11/30/2017 [facility] 5:47 AM [facility] Absolute 12.1 (H) 1.6 - 8.3 11/30/2017 [place] Neutrophil 10e9/L 5:47 AM [facility] Absolute 2.3 0.8 - 5.3 11/30/2017 [facility] Lymphocytes 10e9/L 5:47 AM [facility] Absolute 1.0 0.0 - 1.3 11/30/2017 [place] Monocytes 10e9/L 5:47 AM [facility] Absolute 0.3 0.0 - 0.7 11/30/2017 [facility] Eosinophils 10e9/L 5:47 AM [facility] Absolute 0.1 0.0 - 0.2 11/30/2017 [place] Basophils 10e9/L 5:47 AM [facility] Abs Immature 0.2 0 - 0.4 11/30/2017 [place] Granulocytes 10e9/L 5:47 AM [facility] Absolute 0.0 11/30/2017 [place] Nucleated RBC 5:47 AM [facility] Specimen Anatomical Collection Method Collection Time Receive d Time (Source) Location / / Volume Laterality Blood specimen 11/30/2017 5:35 AM 018 5:36 (specimen) CDT AM CDT Irving Leonardo MD LAB - BLOOD ORDERABLES Performing Organization Address City/[facility]/ZIP [facility] Phon e Number [facility] [address] [place] [address] [facility] [address] [phone] EKG 12 lead (11/30/2017 5:27 AM CDT) [facility] gist Method Time Signature Interpretation ECG Click View RADIOLOGY Image link RESULTS to view waveform and result Specimen (Source) Anatomical Collection Method Collection Time Re ceived Time Location / / Volume Laterality 11/30/2017 5:27 AM CDT Irving Leonardo MD ECG ORDERABLES Performing Organization Address City/[facility] Phon e Number RADIOLOGY RESULTS documented in this encounter Visit Diagnoses Diagnosis SBO (small bowel obstruction) (H) - Prim kiko Unspecified intestinal obstruction Non-intractable vomiting with nausea, un specified vomiting type documented in this encounter Admitting Diagnoses Diagnosis SBO (small bowel obstruction) (H) Unspecified intestinal obstruction Non-intractable vomiting with nausea, un specified vomiting type documented in this encounter Administered Medications Inactive Administered Medications - up to 3 most recent administrations Medication Order MAR Action Action Date Dose Rate Site 0.9% sodium chloride BOLUS New Bag 11/30/2017 5:35 AM CDT 1,000 mLs 1000 mL/hr Intravenous, 1,000 mL, ONCE, at 1,000 mL/hr, Administer over 1 Hours, On Tue11/30/17 at 0530, For 1 dose 0.9% sodium chloride BOLUS New Bag 11/30/2017 6:04 AM CDT 60 mLs Intravenous, 60 mL, ONCE, On Tue11/30/17 at 0605, For 1 dose benzocaine-menthol (CHLORASEPTIC) 6-10 MG Given 2017 2:24 PM CDT 1 lozenge lozenge 1 lozenge 1 lozenge, Buccal, EVERY 1 HOUR PRN, sore throat, dry/sore throat without fever, Starting on Tue11/30/17 at 1401 diphenhydrAMINE (BENADRYL) capsule 25 mg 25 mg, Oral, EVERY 6 HOURS PRN, itching, Starting on W ed 11/30/17 at 2157 diphenhydrAMINE (BENADRYL) injection 25 mg Given 11/30/2017 10:42 PM CDT 25 mg 25 mg, Intravenous, EVERY 6 HOURS PRN, itching, Administer over 1-2 Minutes, Starting on Tue11/30/17 at 2224, For ordered doses up to 50 mg, give IV Push undiluted. Give each 25mg over a minimum of 1 minute. Extend in non-emergency HYDROmorphone (PF) (DILAUDID) injection Given 12/01/2017 1:11 AM CDT 0.3 mg 0.3-0.5 mg 0.3-0.5 mg, Intravenous, EVERY 2 HOURS PRN, other, for pain control or improvement in physical function. Hold dose for analgesic side effects., Starting on Tue11/30/17 at 0908, Start at the lowest dose. May adjust dose by 0.1 mg every 2 hours as needed. Notify provider to assess for uncontrolled pain or analgesic side effects. Hold while on SWIMMING INSTRUCTOR or with regular IV opioid dosing For ordered doses up to 4 mg give IV Push undiluted. Administer each 2mg over 2-5 minutes. iopamidol (ISOVUE-370) solution 75 mL Given 11/30/2017 6:04 AM CDT 75 mLs 75 mL, Intravenous, ONCE, On Tue11/30/17 at 0605, For 1 dose lactated ringers infusion New Bag 12/01/2017 8:56 AM CDT 125 mL/hr at 125 mL/hr, Intravenous, CONTINUOUS, Starting on Tue11/30/17 at 0915, Until Katlyn 12/01/17 at 1625 New Bag 12/01/2017 1:11 AM CDT 125 mL/hr Rate/Dose Verify 12/01/2017 12:55 AM CDT 125 mL/hr morphine (PF) injection 4 mg Given 11/30/2017 8:52 AM CDT 4 mg 4 mg, Intravenous, EVERY 15 MIN PRN, other, pain control or improvement in physical function. Hold dose for analgesic side effects., Starting on Tue11/30/17 at 0528, For 3 doses, Notify the provider to assess for uncontrolled pain or analgesic side effects. Hold while on IV SWIMMING INSTRUCTOR or with regular IV opioid dosing. For ordered doses up to 15 mg give IV Push undiluted over 4-5 minutes. Given 11/30/2017 5:39 AM CDT 4 mg ondansetron (ZOFRAN) injection 4 mg Given 11/30/2017 5:39 AM CDT 4 mg 4 mg, Intravenous, ONCE PRN, nausea, vomiting, Administer over 2-5 Minutes, Starting on Tue11/30/17 at 0528, For 1 dose, Irritant. For ordered doses up to 4 mg, give IV Push undiluted over 2-5 minutes. ondansetron (ZOFRAN) injection 4 mg Given 12/01/2017 1:11 AM CDT 4 mg 4 mg, Intravenous, EVERY 6 HOURS PRN, nausea, vomiting, Administer over 2-5 Minutes, Starting on Tue11/30/17 at 0908, This is Step 1 of nausea and vomiting management. If nausea not resolved in 15 minutes, go to Step 2 prochlorperazine (COMPAZINE). Irritant. For ordered doses up to 4 mg, give IV Push undiluted over 2-5 minutes. Given 11/30/2017 7:02 PM CDT 4 mg ondansetron (ZOFRAN-ODT) ODT tab 4 mg 4 mg, Oral, EVERY 6 HOURS PRN, nausea, v omiting, Starting on Tue11/30/17 at 0908, This is Step 1 of nausea and vomiting management. If n ausea not resolved in 15 minutes, go to Step 2 prochlorperazine (COMPAZINE). Do not push through foil backing. Peel back foil and gently remove. Place on to ngue immediately. Administration with liquid unnecessary W ith dry hands, peel back foil backing and gently remove tablet; do not push oral d isintegrating tablet through foil backing; administer immediately on tongue and oral disintegrati ng tablet dissolves in seconds; then swallow with saliva; liquid not required . phenol (CHLORASEPTIC) 1.4 % spray 1 mL 1 mL (1 spray), Mouth/Throat, EVERY 1 HOUR PRN, sore t hroat, without fever, Starting on Tue11/30/17 at 1401 prochlorperazine (COMPAZINE) injection 1 0 mg 10 mg, Intravenous, EVERY 6 HOURS PRN, nausea, vomitin g, Administer over 1-2 Minutes, Starting on Tue11/30/17 at 0908, This is Step 2 of nausea and vomiting management. Give if nausea not resolved 15 minutes aft er giving ondansetron (ZOFRAN). If nausea not resolved in 15 minutes, go to Step 3 metoclopramide (REGLAN), if ordered. For ordered doses up to 10 mg, give IV Push undiluted. Each 5mg over 1 minute. prochlorperazine (COMPAZINE) Suppository 25 mg 25 mg, Rectal, EVERY 12 HOURS PRN, nausea, vomiting, S tarting on Tue11/30/17 at 0908, This is Step 2 of nausea and vomit ing management. Give if nausea not resolved 15 minutes after giving ondansetron (ZOF RAN). If nausea not resolved in 15 minutes, go to Step 3 metoclopramide (REGLAN), if ordered. prochlorperazine (COMPAZINE) tablet 10 m g 10 mg, Oral, EVERY 6 HOURS PRN, vomiting , Starting on Tue11/30/17 at 0908, This is Step 2 of nausea and vomiting management . Give if nausea not resolved 15 minutes after giving ondansetron (ZOFRAN). If na usea not resolved in 15 minutes, go to Step 3 metoclopramide (REGLAN), if ordered. sodium chloride (PF) 0.9% PF flush 3 mL Given 12/02/2017 8:27 AM CDT 3 mLs 3 mL, Intracatheter, EVERY 8 HOURS, First dose on Tue11/30/17 at 0915, And Q1H PRN, to lock peripheral IV dormant line. Given 12/02/2017 12:51 AM CDT 3 mLs Given 12/01/2017 5:41 PM CDT 3 mLs documented in this encounter Active and Recently Administered Medications Times are shown in CDT. Scheduled Medication Order 11/30/2017 12/01/2017 12/02/2017 0.9% sodium chloride BOLUS (COMPLETED) 0535 (New Bag - Provider: Kamini Butler RN)0744 (Stopped - Provider: Alanis Crump RN) Intravenous, 1,000 mL, ONCE, at 1,000 mL /hr, Administer over 1 Hours, Tue11/30/17 at 0530, For 1 dose 0.9% sodium chloride BOLUS (COMPLETED) 0604 (New Bag - Provider: Rebecca Loyd)0704 (Stopped - Provider: Kamini Butler RN) Intravenous, 60 mL, ONCE, Tue11/30/17 at 0605, For 1 dose iopamidol (ISOVUE-370) solution 75 mL (COMPLETED) 0604 (Given - Provider: Rebecca Loyd) 75 mL, Intravenous, ONCE, Tue11/30/17 at 0605, For 1 dose sodium chloride (PF) 0.9% PF flush 3 mL 0953 (Given - Provider: Minal Olguin, EVELYN)1732 (Not Given - Provider: Elana Najera RN - Reason: IV Infusing) 0117 (Not Given - Provider: Natalie Malave RN - Reason: IV Infusing)0739 (Not Given - Provider: Savi Saunders LPN - Reason: IV Infusing)1741 (Given - Provider: Franklyn Alvarez LPN) 0051 (Given - Provider: Cathie Davis RN)082 7 (Given - Provider: Madeline Guzman, RN) 3 mL, Intracatheter, EVERY 8 HOURS, Firs t dose on Tue11/30/17 at 0915, And Q1H PRN, to lock peripheral IV dormant line. Continuous Medication Order 11/30/2017 12/01/2017 12/02/2017 lactated ringers infusion (CANCELED) 0947 (New Bag - P rovider: Minal Olguin RN)1733 (New Bag - Provider: Elana Najera, EVELYN) 0055 (Rate/Dose Verify - Provider: Natalie Malave, RN)0111 (New Bag - Provider: Natalie Malave, RN)0856 (New Bag - Provider: Madeline Guzman, RN) at 125 mL/hr, Intravenous, CONTINUOUS, S tarting Tue11/30/17 at 0915, Until Katlyn 12/01/17 at 1625 PRN Medication Order 11/30/2017 12/01/2017 12/02/2017 acetaminophen (TYLENOL) tablet 650 mg 650 mg, Oral, EVERY 4 HOURS PRN, mild pa in, Starting Tue11/30/17 at 0908, Alternate ibuprofen (if ordered) with acetaminophen. Maximum acetaminophen dose from all sources = 75 mg/kg/day not to exceed 4 grams/day. benzocaine-menthol (CHLORASEPTIC) 6-10 MG lozenge 1 lo zenge 1424 (Given - Provider: Minal Olguin, EVELYN) 1 lozenge, Buccal, EVERY 1 HOUR PRN, sor e throat, dry/sore throat without fever, Starting Tue11/30/17 at 1401 diphenhydrAMINE (BENADRYL) capsule 25 mg 25 mg, Oral, EVERY 6 HOURS PRN, itching, Starting Tue11/30/17 at 2157 diphenhydrAMINE (BENADRYL) injection 25 mg 2242 (Given - Provider: Elana Najera, EVELYN) 25 mg, Intravenous, EVERY 6 HOURS PRN, i tching, Administer over 1-2 Minutes, Starting Tue11/30/17 at 2224, For ordered doses up to 50 mg, give IV Push undiluted. Give each 25mg over a minimum of 1 minute. Extend in non-emergency HYDROmorphone (PF) (DILAUDID) injection 0.3-0.5 mg 0111 (Given - Provider: Natalie Malave, EVELYN) 0.3-0.5 mg, Intravenous, EVERY 2 HOURS P RN, Starting Tue11/30/17 at 0908, Until Tue12/02/17 at 1455, other, for pain control or improvement in physical function. Hold dose for analgesic side effects., Sta rt at the lowest dose. May adjust dose b y 0.1 mg every 2 hours as needed. Notify provider to assess for uncontrolled pain or analgesic side effects. Hold while on SWIMMING INSTRUCTOR or with regular IV opioid dosing Fo r ordered doses up to 4 mg give IV Push undiluted. Administer each 2mg over 2-5 minutes. lidocaine (LMX4) kit Topical, EVERY 1 HOUR PRN, pain, with VA D insertion or accessing implanted port., Starting Tue11/30/17 at 0908, Do NOT give if patient has a history of allergy to any local anesthetic or any celine prod uct. Apply 30 minutes prior to VAD inser tion or port access. MAX Dose: 2.5 g (?? of 5 g tube) lidocaine 1 % 1 mL 1 mL, Other, EVERY 1 HOUR PRN, mild pain with VAD insertion or accessing implanted port, Starting Tue11/30/17 at 0908, Do NOT give if patient has a history of allergy to any local anesthetic or any durham e product. MAX dose 1 mL subcutaneous OR intradermal in divided doses. LORazepam (ATIVAN) injection 0.5 mg 0.5 mg, Intravenous, EVERY 6 HOURS PRN, anxiety, Starting Tue11/30/17 at 0908, For IV PUSH: Dilute with equal volume of NS. For ordered doses up to 4 mg give IV Push. Administer each 2mg over 1-5 minutes. morphine (PF) injection 4 mg (CANCELED) 0539 (Given - Provider: Kamini Butler, EVELYN)0852 (Given - Provider: Alanis Crump RN) 4 mg, Intravenous, EVERY 15 MIN PRN, Sta rting Tue11/30/17 at 0528, For 3 doses, other, pain control or improvement in physical function. Hold dose for analgesic side effects., Notify the provider to asse ss for uncontrolled pain or analgesic si de effects. Hold while on IV SWIMMING INSTRUCTOR or with regular IV opioid dosing. For ordered doses up to 15 mg give IV Push undiluted over 4-5 minutes. naloxone (NARCAN) injection 0.1-0.4 mg 0.1-0.4 mg, Intravenous, EVERY 2 MIN PRN , opioid reversal, Starting Tue11/30/17 at 0908, For respiratory rate LESS than or EQUAL to 8. Partial reversal dose: 0.1 mg titrated q 2 minutes for Analgesia Eleuterio e Effects Monitoring Sedation Level of 3 (frequently drowsy, arousable, drifts to sleep during conversation).Full reversal dose: 0.4 mg bolus for Analgesia Side Effects Monitoring Sedation Level of 4 (s omnolent, minimal or no response to stim ulation). For ordered doses up to 2mg give IVP. Give each 0.4mg over 15 seconds in emergency situations. For non- emergent situations further dilute in 9mL of NS to facilitate titration of response. ondansetron (ZOFRAN) injection 4 mg (COMPLETED) 538 ( Given - Provider: Kamini Butler, RN) 4 mg, Intravenous, ONCE PRN, nausea, vom iting, Administer over 2-5 Minutes, Starting Tue11/30/17 at 0528, For 1 dose, Irritant. For ordered doses up to 4 mg, give IV Push undiluted over 2-5 minutes. ondansetron (ZOFRAN) injection 4 mg(Linked Group 1) 18 07 (Given - Provider: Elana Najera RN) 011 (Given - Provider: Natalie Malave, EVELYN) 4 mg, Intravenous, EVERY 6 HOURS PRN, na usea, vomiting, Administer over 2-5 Minutes, Starting Tue11/30/17 at 0908, This is Step 1 of nausea and vomiting management. If nausea not resolved in 15 minutes, go to Step 2 prochlorperazine (COMPAZINE ). Irritant. For ordered doses up to 4 mg, give IV Push undiluted over 2-5 minutes. ondansetron (ZOFRAN-ODT) ODT tab 4 mg(Linked Group 1) 1901 (See Alternative - Provider: Elana Najera RN) 011 (See Alternative - Provider: Alyssa Malave RN) 4 mg, Oral, EVERY 6 HOURS PRN, nausea, v omiting, Starting Tue11/30/17 at 0908, This is Step 1 of nausea and vomiting management. If nausea not resolved in 15 minutes, go to Step 2 prochlorperazine (DEN ZINE). Do not push through foil backing. Peel back foil and gently remove. Place on tongue immediately. Administration with liquid unnecessary With dry hands, peel back foil backing and gently remove ta blet; do not push oral disintegrating ta blet through foil backing; administer immediately on tongue and oral disintegrating tablet dissolves in seconds; then swallow with saliva; liquid not required. phenol (CHLORASEPTIC) 1.4 % spray 1 mL 1 mL (1 spray), Mouth/Throat, EVERY 1 HO UR PRN, sore throat, without fever, Starting Tue11/30/17 at 1401 prochlorperazine (COMPAZINE) injection 10 mg(Linked Group 2) 10 mg, Intravenous, EVERY 6 HOURS PRN, n ausea, vomiting, Administer over 1-2 Minutes, Starting Tue11/30/17 at 0908, This is Step 2 of nausea and vomiting management. Give if nausea not resolved 15 minute s after giving ondansetron (ZOFRAN). If nausea not resolved in 15 minutes, go to Step 3 metoclopramide (REGLAN), if ordered. For ordered doses up to 10 mg, give IV Push undiluted. Each 5mg over 1 minute. prochlorperazine (COMPAZINE) Suppository 25 mg(Linked Group 2) 25 mg, Rectal, EVERY 12 HOURS PRN, nause a, vomiting, Starting Tue11/30/17 at 0908, This is Step 2 of nausea and vomiting management. Give if nausea not resolved 15 minutes after giving ondansetron (ZOFRA N). If nausea not resolved in 15 minutes , go to Step 3 metoclopramide (REGLAN), if ordered. prochlorperazine (COMPAZINE) tablet 10 mg(Linked Group 2) 10 mg, Oral, EVERY 6 HOURS PRN, vomiting , Starting Tue11/30/17 at 0908, This is Step 2 of nausea and vomiting management. Give if nausea not resolved 15 minutes after giving ondansetron (ZOFRAN). If naus ea not resolved in 15 minutes, go to Axel p 3 metoclopramide (REGLAN), if ordered. sodium chloride (PF) 0.9% PF flush 3 mL 3 mL, Intracatheter, EVERY 1 HOUR PRN, l ine flush, for peripheral IV flush post IV meds, Starting Tue11/30/17 at 0908 Linked Groups Order Group 1: ondansetron (ZOFRAN-ODT) ODT tab 4 mgJump to med 4 mg, Oral, EVERY 6 HOURS PRN, nausea, v omiting, Starting Tue11/30/17 at 0908
This is Step 1 of nausea and vomiting management. If nausea not resolved in 15 minutes, go to Axel p 2 prochlorperazine (COMPAZINE). Do not push through foil backing. Peel back foil and gently remove. Place on tongue immediately. Administration with liquid unnecessary With dry hands, peel ba ck foil backing and gently remove tablet ; do not push oral disintegrating tablet through foil backing; administer immediately on tongue and oral disintegrating tablet dissolves in seconds; then swallow with saliva; liquid not required.
Or ondansetron (ZOFRAN) injection 4 mgJump to med 4 mg, Intravenous, EVERY 6 HOURS PRN, na usea, vomiting, Administer over 2-5 Minutes, Starting Tue11/30/17 at 0908
This is Step 1 of nausea and vomiting management. If nausea n ot resolved in 15 minutes, go to Step 2 prochlorperazine (COMPAZINE). Irritant. For ordered doses up to 4 mg, give IV Push undiluted over 2-5 minutes.
Group 2: prochlorperazine (COMPAZINE) injection 10 mgJump to med 10 mg, Intravenous, EVERY 6 HOURS PRN, n ausea, vomiting, Administer over 1-2 Minutes, Starting Tue11/30/17 at 0908
This is Step 2 of nausea and vomiting management. Give if nausea not resolved 1 5 minutes after giving ondansetron (ZOFR AN). If nausea not resolved in 15 minutes, go to Step 3 metoclopramide (REGLAN), if ordered. For ordered doses up to 10 mg, give IV Push undiluted. Each 5mg over 1 minute.
Or prochlorperazine (COMPAZINE) tablet 10 mgJump to med 10 mg, Oral, EVERY 6 HOURS PRN, vomiting , Starting Tue11/30/17 at 0908
This is Step 2 of nausea and vomiting management. Give if nausea not resolved 15 minutes after giving ondansetron (ZOFRAN). If nausea not resolved in 15 minut es, go to Step 3 metoclopramide (REGLAN), if ordered.
Or prochlorperazine (COMPAZINE) Suppository 25 mgJump to med 25 mg, Rectal, EVERY 12 HOURS PRN, nause a, vomiting, Starting Tue11/30/17 at 0908
This is Step 2 of nausea and vomiting management. Give if nausea not resolved 15 minutes after giving ondansetro n (ZOFRAN). If nausea not resolved in 15 minutes, go to Step 3 metoclopramide (REGLAN), if ordered.
documented in this encounter Care Teams Wind Energy Project Manager Relationship Specialty Start Date End Date No Ref-Primary, Physician PCP - General 08/28/17 documented as of this encounter
--- OUTSIDE RECORDS SUMMARY | 2022-02-16 09:49 | XMS_ITS | Encounter Summary ---
:1960 Author Organization [facility] Address [address] [place] [address] Care Team Providers Name Role Phone None, Bfp Primary Care Provider Unavailable Encounter Details Date Type Department Care Team Description 09/15/2012 Therapy Visit [facility] Rashawn, Knee pain (Primary Dx); Rehabilitation Savanah, JESSICA Chondromalacia Services [place] [id number] [id number] [place], [place] [phone] [id number] Social History Tobacco Use Types Packs/Day Years Used Date Never Assessed Sex Assigned at Date Recorded Not on file documented as of this encounter Progress Notes Deb Haywood - 09/15/2012 10:53 AM CDT Subjective: Medical allergies: no. Current medications: Anti-inflammatory. 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 Primary job tasks include: Prolonged sitting and driving. Barriers include: None as reported by patient. Red flags: None as reported by patient. Knee Activity of Daily Living Score: 64.29 Objective: System Physical Exam General ROS Assessment/Plan: Please refer to the daily flowsheet for treatment today, total treatment time and time spent performing 1:1 timed codes. Savanah Elaine, PT - 09/15/2012 8:19 AM CDT Subjective: HPI Comments: Initial evaluation was completed. Sunday Myers is a 51 year old male with a left knee condition. Condition occurred with: Insidious onset. Condition occurred: for unknown reasons. This is a new and chronic condition Pt reports L knee pain over the past month and saw MD 08/30/12.. Patient reports pain: Medial (Mostly lateral). Radiates to: denies. Pain is described as aching and is constant and reported as 7/10. Associated symptoms: Catching and loss of strength. Pain is worse in the A.M.. Symptoms are exacerbated by walking, ascending stairs, descending stairs, bending/squatting and sitting (Pt has 15 steps in home) and relieved by rest and NSAID's. Since onset symptoms are gradually improving. Special tests: MRI and x-ray (Slight meniscus tear and chondromalacia). Previous treatment: none. General health as reported by patient is poor. Objective: Standing Alignment: Knee: Genu recurvatum R and genu recuvatum L Ankle/Foot: Pes planus L and pes planus R General Deviations: Toe in L and toe in R Hip Evaluation Hip Strength: Extension: Left: 4+/5 - Pain:Right: 4+/5 - Pain: Abduction: Left: 5-/5 - Pain:Right: 5-/5 - Pain: Knee Flexion: Left: 4/5 + Pain:Right: 5/5 - Pain: Hip Special Testing: Special tests hip not assessed: Mild hip flexor tightness with Yuridia and Perico bilat, mild bilat HS tightness with 90/90. Left hip positive for the following special tests: Perico (Mild ITB) Right hip positive for the following special tests: Perico (> L for ITB) Knee Evaluation: ROM: PROM Hyperextension: Left: 3 Right: 3 Flexion: Left: 136 Right: 142 Strength: Quad Set Left: WNL Pain: Quad Set Right: WNL Pain: Ligament Testing: Normal Special Tests: Left knee positive for the following special tests: IT Band Friction (+/- Painful in area, no popping, clicking found) Right knee negative for the following special tests: IT Band Friction Palpation: Left knee tenderness present at: Medial Joint Line; Lateral Joint Line and IT Band (distal) Edema: Normal Functional Testing: Quad: Single Leg Squat: Left: Moderate loss of control Right: Bilateral Leg Squat: General ROS Assessment/Plan: Patient is a 51 year old male with left side knee complaints. Patient has the following significant findings with corresponding treatment plan. Diagnosis 1: L Knee Chondromalacia Pain - hot/cold therapy, US, manual therapy, splint/taping/bracing/orthotics, self management, education and home program Decreased strength - therapeutic exercise and therapeutic activities Impaired gait - gait training Decreased function - therapeutic activities Previous and current functional limitations: (See Goal Flow Sheet for this information) Short term and termite treater goals: (See Goal Flow Sheet for this information) Communication ability: Patient appears to be able to clearly communicate and understand verbal and written communication and follow directions correctly. Treatment Explanation - The following has been discussed with the patient: RX ordered/plan of care Anticipated outcomes Possible risks and side effects This patient would benefit from PT intervention to resume normal activities. Rehab potential is good. Frequency: 1 X week, once daily Duration: for 6 weeks Discharge Plan: Achieve all LTG. Independent in home treatment program. Reach maximal therapeutic benefit. Please refer to the daily flowsheet for treatment today, total treatment time and time spent performing 1:1 timed codes. DISCHARGE REPORT Progress reporting period is from 09/15. SUBJECTIVE Subjective changes noted by patient: Subjective: see IE Current pain level is Current Pain level: 7/10. Previous pain level was Initial Pain level: 7/10. Changes in function: Unknown Adverse reaction to treatment or activity: None OBJECTIVE Changes noted in objective findings: Patient has failed to return to therapy so current objective findings are unknown. Objective: see IE ASSESSMENT/PLAN Updated problem list and treatment plan: Diagnosis 1: L Knee Chondromalacia STG/LTGs have been met or progress has been made towards goals: None Assessment of Progress: The patient has not returned to therapy. Current status is unknown. Self Management Plans: Patient has been instructed in a home treatment program. Patient has been instructed in self management of symptoms. I have re-evaluated this patient and find that the nature, scope, duration and intensity of the therapy is appropriate for the medical condition of the patient. Sunday continues to require the following intervention to meet STG and LTG's: PT intervention is nolonger required to meet STG/LTG. Recommendations: This patient is ready to be discharged from therapy and continue their home treatment program. documented in this encounter Miscellaneous Notes Addendum Note - Savanah Elaine, PT - 10/06/2012 9:31 AM CDT Addended by: SAVANAH ELAINE on: 10/06/2012 09:31 AM Modules accepted: Orders documented in this encounter Plan of Treatment Not on filedocumented as of this encounter Procedures Procedure Name Priority Date/Time Associated Diagnosis Comme nts [facility] NEUROMUSCULAR Routine 09/15/2012 10:31 AM Knee pain RE-EDUCATION CDT Chondromalacia [facility] THERAPEUTIC EXERCISES Routine 09/15/2012 10:31 AM Kn ee pain CDT Chondromalacia documented in this encounter Visit Diagnoses Diagnosis Knee pain - Primary Pain in joint, lower leg Chondromalacia documented in this encounter Care Teams Supervisor Rod Placing Relationship Specialty Start Date End Date None, Bfp PCP - General 06/12/99 01/27/17 documented as of this encounter
--- OUTSIDE RECORDS SUMMARY | 2022-02-16 09:49 | XMS_ITS | Encounter Summary ---
:1960 Author Organization [facility] Address [address] [place] [id number] Care Team Providers Name Role Phone No Ref-Primary, Physician Primary Care Provider [phone] Tiffany Hansen MD Unavailable Reason for Visit Reason Onset Date Comments MH/CD Inpatient 08/28/2017 Encounter Details Date Type Department Care Team Description 08/28/2017 Telephone [facility] Generic, Behavioral MH/ CD Inpatient Behavioral Health In kevin Oneil MD [address] [place] [address] Social History Tobacco Use Types Packs/Day Years [...] on file documented as of this encounter Miscellaneous Notes Telephone Encounter - Diane Aguila - 08/28/2017 9:55 PM CDT S: Aliyah from [facility] called with report; requesting admit on pt BIB due to SI and worsening symptoms of depression B: per casting wheel operator, pt denies previous mental health history, however, it is suspected that pt has beenexperiencing undiagnosed depression for the past several years; pt denies hx of previous IP mental health admissions; pt has reportedly been making suicidal statements (I am ready to draw my last breath) and reporting suicidal ideation; casting wheel operator states pt currently denies a specific plan for suicidebut does confirm that he has access to a gun in his home; pt is not followed for OP therapy or psychiatry, and denies taking any psychiatric medications at this time; pt admits to use of etoh, and breathalyzer was .16 upon arrival to ED; pt is reportedly observed to be hopeless in ED; pt states he does not normally use etoh, but admits to consuming alcohol this evening; denies use of drugs A: per casting wheel operator, pt has been medically cleared by Dr. Bishop in [facility] ED; voluntary/cooperative-per casting wheel operator, pt agrees to sign self in; utox negative for all substances R: this video games storywriter left a voicemail for Dr. Godwin (special education teachers for [facility]) requesting a call back to discuss patient for possible stepdown bed; awaiting a call back from special education teachers physician 10:06pm This video games storywriter left a second voicemail for Dr. Godwin requesting a call back to discuss patient 10:57pm; awaiting a call back Discussed case with Dr. Godwin for admission to [facility], he accepts pt for stepdown 77/[place] (special education teachers provider accepts); unit notified of admission (EVELYN Amador), disposition given to [facility] ED-staff at [facility] ED confirms pt continues to be voluntary and cooperative at this time 11:36pm documented in this encounter Plan of Treatment Not on filedocumented as of this encounter Visit Diagnoses Not on filedocumented in this encounter Care Teams Mortgage Branch Manager Relationship Specialty Start Date End Date No Ref-Primary, Physician PCP - General 08/28/17 Tiffany Hansen MD Assigned Surgical Provider 03/21/20 [place] [address] documented as of this encounter
--- OUTSIDE RECORDS SUMMARY | 2022-02-16 09:49 | XMS_ITS | Encounter Summary ---
:1960 Author Organization [facility] Address [address] [place] [address] Care Team Providers Name Role Phone None, Bfp Primary Care Provider Unavailable Encounter Details Date Type Department Care Team Description 07/11/2007 GI Procedure [facility] Endoscopy [place] Rene jones MD None [place] [address] [facility] [address] [place] [phone] (Wo rk) Social History Tobacco Use Types Packs/Day Years Used Date Never Assessed Sex Assigned at Date Recorded Not on file documented as of this encounter Plan of Treatment Not on filedocumented as of this encounter Procedures Procedure Name Priority Date/Time Associated Diagnosis Comme nts COLONOSCOPY Routine 07/11/2007 7:45 AM Results f or this DEVELOPMENT PROFESSIONAL procedure are i n the results section . documented in this encounter Results COLONOSCOPY (07/11/2007 7:45 AM DEVELOPMENT PROFESSIONAL) [facility] Method Time Signature COLONOSCOPY Endoscopy RADIOLOGY RESULTS Patient Name: Sunday Collins n ? Gender: M ? Procedure Date: 07/11/2007 7: 45 AM ? Date of : 1960 ?Age: 46 ? Admit Type: Outpatient ? Attending MD: Thad Ware MD ? Procedure: ? Colonoscopy Indications: ? Hematochezia Providers: ? Thad Ware MD Referring MD: ?Rene Thomas MD Medicines: ? Fe ntanyl 100 micrograms IV, Midazolam 3 mg IV, Atropine ? 0.6 mg IV Complications: ? No immediate complications Procedure: ? - Prior to the procedure, a History and Physical was ? performed, and patient medication allergies were ? reviewed. The patient is competent. The risks and ? benefits of the procedure and the sedation options and ? risks were discussed with the patient. All questions ? were answered and informed consent was obtained. Patient ? identification and proposed procedure were verified by ? the physician in the procedure room. Mental Status ? Examination: alert and oriented. Airway Examination: ? normal oropharyng eal airway and neck mobility. ? Respiratory Examination: clear to auscultation. CV ? Examination: normal. ASA Grade Assessment: I - A normal, ? healthy patient. After reviewing the risks and benefits, ? the patient was deemed in satisfactory condition to ? undergo the procedure. The anesthesia plan was to use ? moderate sedation / analgesia (conscious sedation). ? Immediately prior to administration of medications, the ? patient w as re-assessed for adequacy to receive ? sedatives. The heart rate, respiratory rate, oxygen ? saturations, blood pressure, adequacy of pulmonary ? ventilation, and response to care were monitored ? throughout the procedure. The physical status of the ? patient was re-assessed aft er the procedure. ? After obtaining informed consent, the colonoscope was ? passed under direct vision. Throughout the procedure, ? the patie nt's blood pressure, pulse, and oxygen ? saturations were monitored continuously. The [id number] ? #[id number] was introduced through the anus and advanced to ? the cecum, identified by appendiceal orifice & IC valve. ? The colonoscopy was performed without difficulty. The ? patient tolerated the procedure well. The quality of the ? prep was excellent. ? Findings: ? The digital rectal ex am was normal. A benign appearing sessile polyp was ? found in the rectum. The polyp was 3 mm i n size. The polyp was removed ? with a hot snare. Resection and retrieval were comple te. A benign ? appearing sessile polyp was found in the rectum. The polyp was 2 mm in ? size. This was biopsied with a hot forceps for histology. The sigmoid ? colon, descending colon, splenic flexure, transverse colon, hepatic ? flexure, ascending colon, cecum and ileocecal valve appeared normal. ? Internal, non-bleedin g, mild hemorrhoids were found during retroflexion. ? The retroflexed view of the anal verge was normal and showed no anal or ? rectal abnormalities. ? Impression: ?- A 3 mm polyp in the rectum. Resected and retrieved. ? - A 2 mm polyp in the rectum. Tissue was removed. ? - The sigmoid colon, descending colon, splenic flexure, ? transverse colon, hepatic flexure, ascending colon, ? cecum and ileocecal valve are normal. ? - Internal, non bleeding, mild hemorrhoids were found. Recommendation: ?- Discharge patient to home (ambulat ory). ? - Patient should telephone endoscopist in 1 week. ? - If polyps are adenomatous repeat colonoscopy in 3 ? years. If polyps are hyperplastic then hemoccults q yr ? and flex sigmoidoscopy in 3 y rs. ? - Return to primary care phys ician PRN. ? R Jeanie Ascencio Thad Ware MD Signed Date: 07/11/2007 9:31 AM Number of Addenda: 0 I was physically present for the entire viewing portion of t he exam. Note initiated on 07/11/2007 7:47 AM COLONOSCOPY RADIOLOGY RESULTS Specimen (Source) Anatomical Collection Method Collection Time Re ceived Time Location / / Volume Laterality 07/11/2007 7:45 AM DEVELOPMENT PROFESSIONAL Rene Thomas MD PROCEDURES Performing Organization Address City/State/ZIP Code Phon e Number RADIOLOGY RESULTS documented in this encounter Visit Diagnoses Not on filedocumented in this encounter Care Teams Pig Iron Loader Relationship Specialty Start Date End Date None, Bfp PCP - General 06/12/99 01/27/17 documented as of this encounter
[2022-02-16 13:58] LABS: Albumin* 4.6 g/dL (3.3-5.0); Chloride* 106 mmol/L (96-114)
[2022-02-16 13:59] LABS: Potassium* 4.6 mmol/L (3.6-5.1); Sodium* 143 mmol/L (135-149)
[2022-02-16 14:01] LABS: Carbon Dioxide* 25 mmol/L (20-32); Cholesterol* 220 mg/dL (90-199); Creatinine* 0.9 mg/dL (0.5-1.5); Estimated Glomerular Filt Rate 97 ml/min
[2022-02-16 14:02] LABS: Alanine Aminotransferase* 15 U/L (4-50); Alkaline Phosphatase* 80 U/L (40-150); Aspartate Amino Transferase* 21 U/L (12-35); Bilirubin Total* 0.6 mg/dL (0.1-1.5); Blood Urea Nitrogen* 13 mg/dL (7-30); Calcium* 9.3 mg/dL (8.4-10.6); Glucose* 114 mg/dL (60-115); HDL Cholesterol* 36 mg/dL (>=40); LDL Cholesterol Calculated 147 mg/dL (<100); Triglycerides* 183 mg/dL (40-149)
== END 2022-02-16 16:34 | disposition home or self-care (01) ==
PROVIDERS: PCP Family Medicine; Visit Provider Family Medicine
DX: Z00.00 Encounter for general adult medical examination without abnormal findings (principal); E78.1 Pure hyperglyceridemia
CPT/HCPCS: 80053; 80061

== ENCOUNTER 2022-09-01 08:27 | Outpatient (CLI) | payer BC, SELFPAY | END 2022-09-01 08:28 | disposition home or self-care (01) | LOC: NFLDREF 09-02 06:05 | PROVIDERS: PCP Family Medicine; Referring Provider Family Medicine; Visit Provider Family Medicine | DX: Z00.00 Encounter for general adult medical examination without abnormal findings (principal); E78.1 Pure hyperglyceridemia; K21.9 Gastro-esophageal reflux disease without esophagitis; Z87.898 Personal history of other specified conditions; Z12.5 Encounter for screening for malignant neoplasm of prostate | CPT/HCPCS: 80053; 80061; 84153 ==

== ENCOUNTER 2023-02-28 08:04 | Outpatient (CLI) | payer BC, SELFPAY | END 2023-02-28 08:05 | disposition home or self-care (01) | LOC: NFLDREF 03-02 13:39 | PROVIDERS: PCP Family Medicine; Referring Provider Family Medicine; Visit Provider Family Medicine | DX: Z00.00 Encounter for general adult medical examination without abnormal findings (principal); E78.1 Pure hyperglyceridemia; N40.0 Benign prostatic hyperplasia without lower urinary tract symptoms; R73.03 Prediabetes; R53.83 Other fatigue; R68.82 Decreased libido; Z12.5 Encounter for screening for malignant neoplasm of prostate | CPT/HCPCS: 80053; 80061; 84153; 84270; 84402; 84403 ==

== ENCOUNTER 2024-06-05 13:13 | Outpatient (CLI) | payer BC, SELFPAY | END 2024-06-05 13:14 | disposition home or self-care (01) | LOC: NFLDREF 06-06 02:27 | PROVIDERS: PCP Family Medicine; Referring Provider Family Medicine; Visit Provider Family Medicine | DX: N40.0 Benign prostatic hyperplasia without lower urinary tract symptoms (principal); Z87.898 Personal history of other specified conditions; Z12.5 Encounter for screening for malignant neoplasm of prostate | CPT/HCPCS: G0103 ==

== ENCOUNTER 2024-09-17 08:23 | Outpatient (CLI) | payer BC, SELFPAY | END 2024-09-17 08:24 | disposition home or self-care (01) | LOC: NFLDREF 09-19 03:14 | PROVIDERS: PCP Family Medicine; Referring Provider Family Medicine; Visit Provider Family Medicine | DX: Z00.01 Encounter for general adult medical examination with abnormal findings (principal); R73.03 Prediabetes; E78.1 Pure hyperglyceridemia; R53.83 Other fatigue; Z79.51 Long term (current) use of inhaled steroids | CPT/HCPCS: 80053; 80061; 82306; 84443 ==